=== PATIENT | male | born 1945 | race Caucasian/White ===

== ENCOUNTER → 2018-07-19 12:30 | Outpatient (CLI) | payer SELFPAY ==
--- NOTE | 2018-07-19 12:34 | CT_ITS ---
STUDY: CARDIAC CALCIUM SCORING - CT CHEST REASON FOR EXAM: Male, 72 years old. Coronary calcium screening, over read. RADIATION DOSAGE (If Supplied By Facility): DLP = ( 170.66 ) mGycm TECHNIQUE: Axial non-enhanced images were acquired through the heart for the sole purpose of measuring coronary artery calcium. Individualized dose optimization techniques were used for this CT. COMPARISON: None. FINDINGS: Upper abdomen: Unremarkable. Body wall soft tissues: Unremarkable. Osseous structures: Multilevel mild thoracic spondylosis. Mild osteopenia. Mediastinum: A few lymph nodes are present containing calcification consistent with old granulomatous disease. No acute lymphadenopathy. Esophagus is mildly patulous suggesting presbyesophagus. Lungs: The lungs exhibit generalized hyperlucency without anthony features of centrilobular or paraseptal emphysema. No suspicious focal lesions. Unremarkable airways. Heart: No cardiomegaly or pericardial effusion. There are calcifications of the distal left main, bifurcation of left main into proximal LAD and circumflex, tiny calcification of the LAD just after the takeoff of the 1st diagonal. A few small foci of calcification in the proximal to mid RCA. Aorta: Mild nonaneurysmal ectasia ascending aorta and proximal port 3.5 cm. Pulmonary arteries: Nondilated. CT/Limited Chest CT w/CCTA IMPRESSION: The coronary calcium score is reported under separate cover with cardiology. Please see that report. Multivessel coronary calcification. Evidence of COPD. No acute thoracic process is otherwise evident. Electronically Signed: Hal Coats MD at 13:54 EDT Tel , Service support ,
[2018-07-19 12:45] VITALS: BP 110/65; PULSE 64; RESP 16; O2SAT 93; BMI 32.5
--- NOTE | 2018-07-19 19:30 | CA.SCORE ---
Calcium Scoring Date of Study:: 07/19/18 Coronary Calcium Scoring: High-resolution Computed Tomographic imaging of the chest was performed on 07-19-2018 with particular attention paid to the coronary arteries. Images from the examination were analyzed for the presence and extent of coronary artery calcification , using coronary calcium quantification software. The patient tolerated the procedure well and there were no complications. The results of the coronary calcification analysis are provided below. - Findings Left Main (LM): 180 Left Anterior Descending (LAD): 3.91 Left Circumflex (LCX): 0 Right Coronary Artery (RCA): 75.5 Total Agatston Score: 259.41 - Conclusion Calcium Scoring Interpretation: Calcium Score Interpretation 0 No identifiable atherosclerotic plaque. Very low cardiovascular disease risk. <5% chance of presence coronary artery disease A Negative Examination 1-10 Minimal Plaque burden. Significant coronary artery disease very unlikely. 11-100 Mild plaque burden. Likely mild or minimal coronary atherosclerosis. 101-400 Moderate plaque burden Moderate non-obstructive coronary artery disease highly likely. Over 400 Extensive plaque burden. High likelihood of at least one significant coronary stenosis (>50% diameter) Calcium Score: 101 - 400 Moderate non-obstructive coronary artery disease highly like - 1. Percentile ranking: Between 25 and 50%: Indicative of twin 25 and 50% of people with the same gender/similar age had the same or lower scores.2. Continue cardiovascular risk factor evaluation and care as deemed appropriate.
== END ==
PROVIDERS: Family Provider Internal Medicine; PCP Internal Medicine; Referring Provider Internal Medicine; Visit Provider Internal Medicine
DX: E78.5 Hyperlipidemia, unspecified (principal)
CPT/HCPCS: 75571; 76380

== ENCOUNTER → 2019-01-14 11:55 | Outpatient (CLI) | payer MEDICARE, SELFPAY ==
[2018-07-19 12:45] VITALS: BMI 32.5
--- NOTE | 2019-01-14 12:10 | RAD_ITS ---
STUDY: X-RAY - LEFT KNEE REASON FOR EXAM: Male, 73 years old. Pain. TECHNIQUE: 4 view(s) of the knee. COMPARISON: None. FINDINGS: Normal visualized distal femur. Normal visualized proximal tibia and fibula. There is arthrosis of the proximal tibiofibular articulation. There is no demonstrated fracture. There is mild degenerative arthrosis of the medial femorotibial compartment. There is minimal there is mild chondrocalcinosis, more significant at the lateral joint compartment. Degenerative arthrosis of the lateral femorotibial compartment. There is moderate degenerative arthrosis of the patellofemoral articulation. There is mild joint effusion. There are atherosclerotic calcifications. RAD/Knee 4 or More Views IMPRESSION: Degenerative disease as described above. Mild joint effusion. Electronically Signed: Ana Saenz MD at 1:30 EST , Service support ,
--- NOTE | 2019-01-14 12:10 | RAD_ITS ---
STUDY: X-RAY - PELVIS AND LEFT HIP REASON FOR EXAM: Male, 73 years old. Pain. TECHNIQUE: 3 views of the pelvis and hip. COMPARISON: None. FINDINGS: There is a non-specific bowel gas pattern. Normal visualized soft tissue structures. There are multiple calcified phleboliths. There is narrowing with cortical sclerosis and osteophyte formation of the sacroiliac joint consistent with degenerative osteoarthritic changes. Normal bilateral superior and inferior pubic rami. There are mild degenerative changes of the pubic symphysis with articular narrowing and sclerosis. Normal bilateral ischial tuberosities. There are minimal osteoarthritic changes of the femoral head with marginal osteophyte formation. There is mild osteoarthritic spur formation of the acetabular rim. There is mild articular joint space narrowing of the hip. RAD/Hip uni 4+ views with Pelvis IMPRESSION: Multilevel degenerative disease as described above, otherwise remarkable x-ray examination of the pelvis and hip. Electronically Signed: Ana Saenz MD at 2:53 EST , Service support ,
--- NOTE | 2019-01-14 12:10 | RAD_ITS ---
STUDY: X-RAY - LUMBAR SPINE REASON FOR EXAM: Male, 73 years old. Back pain. TECHNIQUE: 5 view(s) of the lumbar spine were obtained. COMPARISON: None FINDINGS: Normal lumbar lordosis. Mild scoliosis, convexity to the right. There is a normal alignment of the vertebrae. There is multilevel endplate spondylosis of the lumbar vertebrae. There is multi-level degenerative disc disease with multi-level disc space narrowing. There is no demonstrated fracture. Multilevel bilateral facet hypertrophy seen. There is atherosclerotic calcification of the abdominal aorta without a demonstrated aneurysm. RAD/L/S Spine Min 4 Views IMPRESSION: Multilevel spondylosis/degenerative disease with no acute fracture, spondylolisthesis or pars defect. Electronically Signed: Ana Saenz MD at 2:52 EST , Service support ,
== END ==
PROVIDERS: Family Provider Internal Medicine; PCP Internal Medicine; Referring Provider Internal Medicine; Visit Provider Internal Medicine
DX: M47.816 Spondylosis without myelopathy or radiculopathy, lumbar region (principal); M16.12 Unilateral primary osteoarthritis, left hip; M17.12 Unilateral primary osteoarthritis, left knee
CPT/HCPCS: 72110; 73503; 73564

== ENCOUNTER → 2019-12-27 | Outpatient (CLI) | payer MEDICARE, SELFPAY ==
[2018-07-19 12:45] VITALS: BMI 32.5
[2019-12-27 14:22] LABS: Absolute Lymphocyte Count 0.67 X10^3/uL (0.83-4.51); Absolute Neutrophil Count 3.5 X10^3/uL (2.0-7.7); Basophil# 0.01 X10^3/uL; Basophil% 0.2 % (0-1); Eosinophil# 0.01 X10^3/uL; Eosinophils% 0.2 % (0-5); Hematocrit 41.8 % (40-54); Hemoglobin 13.9 g/dL (13.0-16.5); Lymphocyte # 0.67 X10^3/ul (4.0); Lymphocyte % 14.6 % (19-41); Mean Corp Hgb Conc 33.3 g/dL (32-36); Mean Corpuscular Hgb 29.6 pg (27.0-32.0); Mean Corpuscular Volume 88.9 fL (80-94); Mean Platelet Vol. 9.9 fl (6.2-12.0); Monocyte% 8.7 % (0-10); NRBC Flagged by Analyzer 0 % (0-5); Neutrophil # 3.48 X10^3/uL (2.7-7.7); Neutrophil % 75.9 % (47-70); Platelet Count 160 K/mm3 (150-450); RBC Distribution Width CV 12.4 % (11.6-14.6); RBC Distribution Width SD 40.9 fl (35.1-43.9); White Blood Count 4.6 K/mm3 (4.4-11.0)
[2019-12-27 14:41] LABS: AST(SGOT) 63 U/L (15-37); Alanine Aminotransfer ALT/SGPT 55 U/L (16-61); Albumin, Serum 3.5 g/dL (3.2-5.0); Alkaline Phosphatase 48 U/L (45-117); Anion Gap 7 (5-15); BUN 16 mg/dL (7-18); BUN/Creat Ratio 18.5 RATIO (10-20); Calcium,Total 8.2 mg/dL (8.5-10.1); Chloride 98 mmol/L (98-107); Creatinine, Serum 0.87 mg/dL (0.70-1.30); EST Glomerular Filtration Rate 92 mL/min (>60); Est Glom Filt Rate - Afr Amer 111 mL/min (>60); Globulin 3.5 g/dL (2.2-4.2); Glucose 139 mg/dL (74-106); Potassium 4.3 mmol/L (3.5-5.1); Sodium Level 134 mmol/L (136-145)
== END | disposition home or self-care (01) ==
LOC: LABSPEC 14:16
PROVIDERS: PCP Internal Medicine; Referring Provider Internal Medicine; Visit Provider Internal Medicine
DX: R50.9 Fever, unspecified (principal)
CPT/HCPCS: 80053; 85025

== ENCOUNTER → 2019-12-28 11:07 | Outpatient (CLI) | payer MEDICARE, SELFPAY ==
[2018-07-19 12:45] VITALS: BMI 32.5
--- NOTE | 2019-12-28 11:25 | RAD_ITS ---
STUDY: X-RAY CHEST REASON FOR EXAM: Male, 74 years old. Cough with fever, weakness, and SOB x 5 days TECHNIQUE: PA and lateral views of the chest. COMPARISON: None. FINDINGS: Hyperinflation. Scattered calcified granulomas. There is no demonstrated pleural abnormality. Normal size heart. Normal mediastinum and abel. Normal visualized pulmonary arteries. There is atherosclerotic calcification of the aortic arch with tortuosity. There are diffuse degenerative changes of the visualized thoracic spine. Normal visualized ribs, clavicles, and shoulders. There is no demonstrated abnormality of the visualized soft tissue structures of the upper abdomen. RAD/Chest PA and Lateral IMPRESSION: Hyperinflation. No acute abnormality is seen. Electronically Signed: Jackson Solano, at 12:15 EDT , Service support ,
== END ==
PROVIDERS: PCP Internal Medicine; Referring Provider Internal Medicine; Visit Provider Internal Medicine
DX: R05 Cough (principal); R50.9 Fever, unspecified
CPT/HCPCS: 71046

== ENCOUNTER → 2020-01-25 08:48 | Outpatient (CLI) | payer MEDICARE, SELFPAY ==
[2018-07-19 12:45] VITALS: BMI 32.5
--- NOTE | 2020-01-25 08:52 | CDU_ITS ---
Reason For Study: ATHEROSCLEROSIS Rt. Velocities/BP Lt. Velocities/BP Prox CCA 58/17 cm/sec. Prox CCA 68/18 cm/sec. Mid CCA 84/23 cm/sec. Mid CCA 101/24 cm/sec. Dist CCA 58/19 cm/sec. Dist CCA 94/28 cm/sec. Prox ICA 42/15 cm/sec. Prox ICA 35/9 cm/sec. Mid ICA 61/25 cm/sec. Mid ICA 97/33 cm/sec. Dist ICA 70/31 cm/sec. Dist ICA 83/29 cm/sec. Rt. ICA/CCA = 1.2. Lt. ICA/CCA = 1.0. Prox ECA 76/10 cm/sec. Velocities may underestimate degree of Rt. Vert. 42/11 cm/sec. stenosis in mid ICA. Prox ECA 79/15 cm/sec. Lt. Vert. 58/17 cm/sec. Right Extracranial There is homogeneous, smooth atherosclerotic plaque noted in the right common carotid artery. There is heterogeneous, irregular atherosclerotic plaque noted in the right internal carotid artery. There is heterogeneous, irregular atherosclerotic plaque noted in the right external carotid artery. Antegrade flow is noted in the right vertebral artery. There is heterogeneous, irregular atherosclerotic plaque noted in the right bulb. Left Extracranial There is heterogeneous, smooth atherosclerotic plaque noted in the left common carotid artery. There is heterogeneous, irregular atherosclerotic plaque noted in the left internal carotid artery. There is heterogeneous, irregular atherosclerotic plaque noted in the left external carotid artery. Antegrade flow is noted in the left vertebral artery. There is heterogeneous, irregular atherosclerotic plaque noted in the left bulb. Procedure Carotid Duplex [id number]. Exam performed in department. Interpretation Summary Mild (<50%) stenosis right extracranial internal carotid. Mild (<50%) stenosis left extracranial internal carotid. Palomo-scale imaging reveals stenosis of approximately 50% in the left mid-internal carotid artery. Flow within the vertebral arteries is antegrade bilaterally. Heterogeneous, irregular atherosclerotic plaque is noted in the carotid bulbs bilaterally, which does not appear to be hemodynamically significant. Ordering Physician: Svetlana Oneill Referring Physician: Svetlana Oneill Performed By: Sandie Neri, JOHANNY, RVT
== END ==
PROVIDERS: PCP Internal Medicine; Referring Provider Internal Medicine; Visit Provider Internal Medicine
DX: I65.23 Occlusion and stenosis of bilateral carotid arteries (principal)
CPT/HCPCS: 93880

== ENCOUNTER 2020-07-01 20:07 | Inpatient (IN) | payer MEDICARE, SELFPAY ==
[2018-07-19 12:45] VITALS: BMI 32.5
[2020-07-01] VITALS (24 sets, daily range): BP systolic 112–153; BP diastolic 65–128; PULSE 56–72; RESP 13–19; TEMP 36.3–36.6; O2SAT 93–98; BMI 31.4; BMI 33.0
--- NOTE | 2020-07-01 20:16 | RAD_ITS ---
STUDY: X-RAY CHEST REASON FOR EXAM: Male, 74 years old. Neuro deficit, acute, stroke suspected TECHNIQUE: AP portable COMPARISON: 12/28/2019 FINDINGS: The lungs are clear and expanded. There is no demonstrated pleural abnormality. Normal size heart. Normal mediastinum and abel. Normal visualized pulmonary arteries. Mildly calcified aortic arch and descending thoracic aorta. Dorsal spine and shoulders demonstrate change. Normal visualized ribs, and clavicles. There is no demonstrated abnormality of the visualized soft tissue structures of the upper abdomen. No significant change since prior study RAD/Chest 1 View IMPRESSION: No acute cardiopulmonary pathology Electronically Signed: Wali Real MD at 21:08 EDT , Service support ,
--- NOTE | 2020-07-01 20:16 | CT_ITS ---
We are attempting to reach an attending provider to discuss findings. An addendum with communication details will be sent when the communication is complete. STUDY: CT HEAD STROKE PROTOCOL W/O CONTRAST INJECTION REASON FOR EXAM: Male, 74 years old. Neuro deficit, acute, stroke suspected RADIATION DOSAGE (If Supplied By Facility): CTDIvol = ( ) mGy, DLP = ( 812.98 ) mGycm TECHNIQUE: Transaxial CT imaging of the brain was performed without administration of intravenous contrast material. Individualized dose optimization techniques were used for this CT. COMPARISON: No relevant priors. FINDINGS: Normal soft tissue structures. Normal calvarium. Calcification of cavernous carotids Mild atrophy and periventricular white matter ischemic change.. Tiny hypoattenuated density in the medial left temporal lobe most likely perivascular space. Normal basal ganglia and thalami. Normal brainstem. Normal cerebellum. Empty sella deformity likely of no significance There is no intracranial hemorrhage. There are no findings of an acute ischemic infarction. There is minor mucosal thickening in the maxillary and mild mucosal thickening of the ethmoid sinuses. ASPECT score: 10 CT/STROKE Brain/Head without Cont IMPRESSION: Mild atrophy and periventricular white matter ischemic change. No evidence for acute bleed. If concern for acute infarct MRI recommended.. Electronically Signed: Wali Real MD at 20:33 EDT , Service support ,
--- NOTE | 2020-07-01 20:16 | EKG12_ITS ---
Test Reason : STROKE Blood Pressure : / mmHG Vent. Rate : 063 BPM Atrial Rate : 063 BPM P-R Int : 216 ms QRS Dur : 104 ms QT Int : 412 ms P-R-T Axes : 069 072 052 degrees QTc Int : 421 ms Sinus rhythm with 1st degree A-V block Nonspecific ST abnormality Abnormal ECG Confirmed by JENNIFER CAMACHO, JOSE ([id number]), editorial manager DORINA RODRIGUEZ ([id number]) on 07/04/2020 8:50:44 AM Referred By: OLIVER Confirmed By:JOSE RODRIGUEZ MD
--- NOTE | 2020-07-01 20:17 | CT_ITS ---
We are attempting to reach an attending provider to discuss findings. An addendum with communication details will be sent when the communication is complete. STUDY: CTA HEAD AND NECK WITH CONTRAST REASON FOR EXAM: Male, 74 years old. Neuro deficit, acute, stroke suspected RADIATION DOSAGE (If Supplied By Facility): CTDIvol = ( 22.25 ) mGy, DLP = ( 739.76 ) mGycm TECHNIQUE: CT angiography was performed with a multi-detector CT scanner. Data acquisition was obtained from the skull base through the vertex following intravenous administration of IV 100mL [id number]-[id number]. MIP images were reconstructed from the axial data set. Post-processing of the angiographic images was performed, with multiplanar reformation and 3D reconstruction. Individualized dose optimization techniques were used for this CT. COMPARISON: No relevant priors. FINDINGS: Normal bilateral petrous carotid arteries. Moderate calcific plaquing of the right cavernous carotid artery with a normal supraclinoid bifurcation. Moderate calcific plaquing of the left cavernous carotid artery with a normal supraclinoid bifurcation. Normal right A1 segments of the anterior cerebral artery. Nonvisualized left A1 segments of the anterior cerebral artery which may be normal developmental variant. Normal intact anterior communicating artery (ACOM). Normal bilateral A2 segments of the anterior cerebral arteries. Normal right M1 and M2 segments of the middle cerebral arteries, with a normal M1 bifurcation. Normal left M1 and M2 segments of the middle cerebral arteries, with a normal M1 bifurcation. Normal right posterior communicating artery (PCOM). Normal left posterior communicating artery (PCOM). Normal bilateral vertebral arteries. Normal basilar artery with a normal basilar bifurcation. The visualized bilateral superior cerebellar (SCA) arteries are normal. Normal bilateral P1, P2 and visualized P3 segments of the posterior cerebral arteries. There is no demonstrated aneurysm of the [place] of [place]. AORTIC ARCH: Normal visualized aortic arch. Normal origins of the brachiocephalic, left common carotid, and left subclavian arteries. RIGHT CAROTID ARTERIES: Normal right common carotid artery (CCA). Moderate calcific plaquing of the right common carotid bulb. Moderate soft and calcific plaquing of the origin of the right internal carotid (ICA) artery without a hemodynamically significant stenosis. Normal visualized cervical portion of the right internal carotid artery. Normal origin of the right external carotid artery (ECA). LEFT CAROTID ARTERIES: Mild calcific plaquing of the left common carotid artery (CCA). Moderate calcific plaquing of the left common carotid bulb. Normal origin of the left internal carotid (ICA) artery without a hemodynamically significant stenosis. Moderate soft and calcific plaquing of the visualized cervical portion of the left internal carotid artery. Normal origin of the left external carotid artery (ECA). VERTEBRAL ARTERIES: Dominant left vertebral artery which is normal caliber.. Small right vertebral which is normal developmental variant CT/STROKE CTA Head AND Neck W/Con IMPRESSION: Moderate atherosclerotic disease of the carotids more severe on the left without evidence for hemodynamically significant stenosis Mild atherosclerotic disease of the brain Electronically Signed: Wali Real MD at 20:49 EDT , Service support ,
[2020-07-01 20:26] LABS: Absolute Lymphocyte Count 1.39 X10^3/uL (0.83-4.51); Absolute Neutrophil Count 4.3 X10^3/uL (2.0-7.7); Basophil# 0.04 X10^3/uL; Basophil% 0.6 % (0-1); Eosinophil# 0.11 X10^3/uL; Eosinophils% 1.7 % (0-5); Hematocrit 41.6 % (40-54); Hemoglobin 13.4 g/dL (13.0-16.5); Lymphocyte # 1.39 X10^3/ul (0.83-4.51); Lymphocyte % 22.1 % (19-41); Mean Corp Hgb Conc 32.2 g/dL (32-36); Mean Corpuscular Hgb 28.9 pg (27.0-32.0); Mean Corpuscular Volume 89.8 fL (80-94); Mean Platelet Vol. 9.6 fl (6.2-12.0); Monocyte# 0.45 X10^3/uL; Monocyte% 7.1 % (0-10); NRBC Flagged by Analyzer 0 % (0-5); Neutrophil # 4.26 X10^3/uL (2.7-7.7); Neutrophil % 67.7 % (47-70); Platelet Count 221 K/mm3 (150-450); RBC Distribution Width SD 42.7 fl (35.1-43.9); Red Blood Count 4.63 M/mm3 (4.6-6.2); White Blood Count 6.3 K/mm3 (4.4-11.0)
[2020-07-01 20:36] LABS: International Normalized Ratio 1.1; Partial Thromboplast Time 27.3 Seconds (24.1-36.2); Prothrombin Time (Protime)PT. 13.2 SECONDS (11.7-14.9)
[2020-07-01 20:45] LABS: Anion Gap 5 (5-15); BUN 21 mg/dL (7-18); BUN/Creat Ratio 18.8 RATIO (10-20); Calcium,Total 9.2 mg/dL (8.5-10.1); Chloride 102 mmol/L (98-107); Creatinine, Serum 1.12 mg/dL (0.70-1.30); EST Glomerular Filtration Rate 68 mL/min (>60); Est Glom Filt Rate - Afr Amer 82 mL/min (>60); Estimated Creatinine Clearance 61.63 ml/min; Glucose 263 mg/dL (74-106); Potassium 3.8 mmol/L (3.5-5.1); Sodium Level 138 mmol/L (136-145)
[2020-07-01] MEDS: 0.9% Normal Saline 1,000 ML 100 ML IV (21:23)
--- NOTE | 2020-07-01 21:26 | EDS_ITS ---
HPI History of Present Illness Chief Complaint: Neuro S/Sx Informant: patient Onset/Context/Timing Onset: Today Context: Sudden Onset Timing: Continuous Quality and Location: Positive for Right Arm Weakness (Right hand weakness) Associated Symptoms Associated Symptoms: Negative for Headache, Nausea, Vomiting and Chest Pain Narrative Narrative: Patient presents with right hand weakness that began suddenly tonight. Patient was eating popcorn at approximately 1930 hrs. tonight. Patient states that he had difficulty grabbing the popcorn and putting it into his mouth. Patient states he then tried to take a drink of water but was unable to hold a glass of water. Patient denies any difficulty swallowing or talking. Patient denies any headaches. Patient denies any other symptoms. Prior similar symptoms: No PFSH PFSH Medical History Diabetes Home Medications aspirin 325 mg PO DAILY 07/01/20 [History Last Taken Unknown] empagliflozin [Jardiance] 25 mg PO DAILY 07/01/20 [History Last Taken Unknown] finasteride 5 mg PO DINNER 07/01/20 [History Last Taken Unknown] insulin glargine [Lantus Solostar U-100 Insulin] 10 unit SUBCUT BREAKFAST 07/01/20 [History Last Taken Unknown] sitagliptin-metformin [Janumet] 50 - 1,000 tab PO DAILY 07/01/20 [History Last Taken Unknown] tamsulosin 0.4 mg PO DINNER 07/01/20 [History Last Taken Unknown] Allergy/AdvReac Type Severity Reaction Status Date / Time No Known Allergies Allergy Verified 07/01/20 20:08 Surgical History History of appendectomy Social History Smoking Status: Never smoker ROS ROS ED Constitutional Constitutional ED: Denies chills or fever(s) Eyes Eyes: Denies blurry vision or change in vision ENT ENT ED: Denies rhinorrhea or sore throat Cardiovascular Cardiovascular: Denies chest pain or palpitations Respiratory/Chest Respiratory/Chest: Denies cough or dyspnea Gastrointestinal Gastrointestinal: Denies nausea or vomiting Genitourinary Genitourinary ED: Denies dysuria or hematuria Musculoskeletal Musculoskeletal: Denies back pain or neck pain Integumentary Denies abscess or rash Neurologic Neurologic: Reports paresthesias and weakness; Denies headache(s) Allergic/Immunologic Allergic/Immunologic ED: Denies mouth swelling or urticaria EXAM Physical Exam Const Vital Signs: 07/01/20 20:08 07/01/20 20:16 07/01/20 20:23 Temperature 97.7 F L Temperature Source Temporal Pulse Rate 67 69 Respiratory Rate 19 H 18 Blood Pressure 148/128 H 137/75 H Blood Pressure Mean 134 95 Blood Pressure Source Blood Pressure Position Blood Pressure Location Pulse Ox 95 95 Oxygen Delivery Method Room Air Room Air Room Air 07/01/20 20:46 07/01/20 21:06 07/01/20 21:13 Temperature 97.6 F L Temperature Source Core Pulse Rate 64 68 Respiratory Rate 16 16 Blood Pressure 125/73 H 125/73 H 126/70 H Blood Pressure Mean 90 88 Blood Pressure Source Monitor Blood Pressure Position Sitting Blood Pressure Location Right Arm Pulse Ox 94 95 Oxygen Delivery Method Room Air Room Air 07/01/20 21:18 Temperature 97.7 F L Temperature Source Core Pulse Rate 67 Respiratory Rate 16 Blood Pressure 126/70 H Blood Pressure Mean 88 Blood Pressure Source Blood Pressure Position Blood Pressure Location Pulse Ox 95 Oxygen Delivery Method Room Air Positive well nourished and well developed General Appearance ED: well developed HEENT Reports moist mucous membranes atraumatic Eyes PERRL and EOMs intact bilaterally Neck supple and no JVD Resp normal respiratory effort and clear to auscultation bilaterally Cardio Rate: regular rate Rhythm: regular rhythm GI normal to inspection, nondistended, normoactive bowel sounds, soft to palpation and non-tender Extremity normal to inspection General Extremety ED: Yes tenderness Neuro oriented x3 and CN's II-XII intact bilaterally Neuro Narrative: There is weakness of the package sorter on the right. There is some mild weakness of wrist flexion and extension. There is good strength of the right bicep and tricep. There is good strength of the right shoulder. There is good strength in the left upper extremity. There is good strength in the lower extremities bilaterally. Sensation was slightly diminished to light touch in the right hand. There are no other sensory deficits noted. Czlnlh-ps-vnap was grossly intact. Patient had difficulty pointing his right index finger but was otherwise able to move it to his nose and my finger. Lwwt-lp-exug was intact. Sensorium / Orientation: alert Speech: speech normal Psych mental status grossly normal STROKE Vital Signs/Narrative: Vital Signs Temp Pulse Resp BP Pulse Ox 07/01/20 21:18 97.7 F L 67 16 126/70 H 95 07/01/20 21:13 97.6 F L 68 16 126/70 H 95 07/01/20 21:06 125/73 H 07/01/20 20:46 64 16 125/73 H 94 07/01/20 20:16 69 18 137/75 H 95 07/01/20 20:08 97.7 F L 67 19 H 148/128 H 95 NIHSS Initial: 1a Level of Consciousness: 0 1b LOC Questions (Score 2 if aphasic/stupor): 0 1c LOC Commands (Only score 1st attempt): 0 2 Best Gaze (If aphasic, use reflexive mvmts.): 0 3 Visual: 0 4 Facial Palsy: 0 5 Motor Arm Right (UN = amputation/fusion): 1 5 Motor Arm Left: 0 6 Motor Leg Right: 0 6 Motor Leg Left: 0 7 Limb ataxia (Only + if out of proportion): 0 8 Sensory (Aphasia/stupor=0 or 1, coma=2): 0 9 Best Language: 0 10 Dysarthria (mute, coma=2, intubated=UN): 0 11 Extinction and Inattention (only scored if +): 0 Total Score: 1 MDM MDM MDM Narrative Medical decision making narrative: CT scan of the brain was obtained. There is no acute intracranial abnormality. CTA of the brain was obtained. There is atherosclerotic disease but there is no large vessel occlusion. There is no dissection. CBC and basic metabolic profile were within normal limits. Troponin was normal. PT with INR and PTT were normal. EKG was obtained. On my interpretation, showed normal sinus rhythm with a first-degree AV block with a rate of 63. LA interval was 216. QRS, and QTc intervals were within normal limits. Odonnell was normal. Portable 1 view chest x-ray was obtained. On my interpretation, lung horner are clear. There is normal cardiac silhouette. Bony thorax is normal. There is no acute process noted. Radiologist also interpreted the x-ray and agrees. Stroke neurologist evaluated the patient. He recommended giving the patient TPA since his right hand is affected and he is right-hand dominant. Patient is agreeable with this. I discussed the risks and benefits of TPA with the patient. He is agreeable to receive the TPA. This was ordered. Case was discussed with the hospitalist. He will admit the patient to ICU. Patient and family understood and were agreeable with the plan. All questions were answered. Lab Data Labs: Laboratory Results - last 24 hr 07/01/20 07/01/20 07/01/20 20:17 20:17 20:17 WBC 6.3 RBC 4.63 Hgb 13.4 Hct 41.6 MCV 89.8 MCH 28.9 MCHC 32.2 RDW Std Deviation 42.7 RDW Coeff of Rosa [place] 13.0 Plt Count 221 MPV 9.6 Immature Gran % (Auto) 0.800 Neut % (Auto) 67.7 Lymph % (Auto) 22.1 [place] % (Auto) 7.1 Eos % (Auto) 1.7 Baso % (Auto) 0.6 Absolute Neuts (auto) 4.3 Absolute Lymphs (auto) 1.39 Nucleated RBC % 0 PT 13.2 INR 1.1 APTT 27.3 Sodium 138 Potassium 3.8 Chloride 102 Carbon Dioxide 31.0 Anion Gap 5 BUN 21 H Creatinine 1.12 Estim Creat Clear Calc 61.63 Est GFR (MDRD) Af Amer 82 Est GFR (MDRD) Non-Af 68 BUN/Creatinine Ratio 18.8 Glucose 263 H Calcium 9.2 Troponin I < 0.015 Radiography Diagnostic Testing: Radiology Impression Brain CT 07/01/20 20:16 IMPRESSION: Mild atrophy and periventricular white matter ischemic change. No evidence for acute bleed. If concern for acute infarct MRI recommended.. Electronically Signed: Wali Real MD at 20:33 EDT , Service support , ADDENDUM: 07/01/202040 IMPRESSION: Mild atrophy and periventricular white matter ischemic change. No evidence for acute bleed. If concern for acute infarct MRI recommended.. N.B. : The above information has been verbally conveyed by Wali Real MD to Dr. Cooper Valverde DO, on 07/01/2020 20:34:07 (ET). Electronically Signed: Wali Real MD at 20:33 EDT , Service support , Chest X-Ray 07/01/20 20:16 IMPRESSION: No acute cardiopulmonary pathology Electronically Signed: Wali Real MD at 21:08 EDT , Service support , Head/Neck CTA 07/01/20 20:17 IMPRESSION: Moderate atherosclerotic disease of the carotids more severe on the left without evidence for hemodynamically significant stenosis Mild atherosclerotic disease of the brain Electronically Signed: Wali Real MD at 20:49 EDT , Service support , ADDENDUM: 07/01/202056 IMPRESSION: Moderate atherosclerotic disease of the carotids more severe on the left without evidence for hemodynamically significant stenosis Mild atherosclerotic disease of the brain N.B. : The above information has been verbally conveyed by Wali Real MD to Dr. Cooper Valverde DO, on 07/01/2020 20:50:47 (ET). Electronically Signed: Wali Real MD at 20:49 EDT , Service support , EKG Initial EKG: Attestation: I personally reviewed and interpreted this EKG as follows: Interpretation: Sinus Rhythm (63 with first-degree AV block) and Non- Specific ST Changes Treatment and Re-Evaluation Vital Sign Attestation:: Vital signs were stable prior to the patient being admitted Stroke Documentation Questions Stroke Team Activated: Yes Reviewed Inclusion/Exclusion criteria: Yes Was Patient considered for Endovascular Intervention?: No IV Alteplase (t-PA) Administered: Yes No contraindications for IV Alteplase (t-PA) administration.: Yes Alteplase (t-PA) risks, benefits, alternative discussed: Yes Critical Care Time Critical Care Time: Yes Critical care time (excluding procedures): 30-74 minutes, Discussing w/Patient &/or Family/Personnel Placement Specialist, Discussing w/Consultants, Arranging Admission or Transfer and Performing Direct Patient Care at Bedside Discharge Plan Dx/Rx/DC Orders Clinical Impression: Stroke Disposition Disposition: Acute Care Hospital [facility]
--- NOTE | 2020-07-01 22:18 | ED.RN ---
see TPA vital signs and NIH
--- NOTE | 2020-07-01 22:38 | HP.PCM.HOS_ITS ---
HPI - General General Date of Admission: 07/01/20 Chief Complaint: Weakness of right hand HPI Narrative CHASITY MCKEON, is a 74 M with a significant history of diabetes mellitus who presents with a weakness of her right hand. Patient is right-hand dominant. He was eating popcorn with her right hand when he realized that he could not use his right hand to eat again. He tried using a cup and he dropped the cup. Initially at the emergency department he had some sensation changes at the right hand. He has some chronic bilateral feet numbness that has not changed. At the emergency department he had a clawed right hand. Stroke telemetry neurologist saw patient and patient was given TPA. [facility] Home Medications aspirin 325 mg PO DAILY 07/01/20 [History Last Taken Unknown] empagliflozin [Jardiance] 25 mg PO DAILY 07/01/20 [History Last Taken Unknown] finasteride 5 mg PO DINNER 07/01/20 [History Last Taken Unknown] insulin glargine [Lantus Solostar U-100 Insulin] 10 unit SUBCUT BREAKFAST 07/01/20 [History Last Taken Unknown] sitagliptin-metformin [Janumet] 50 - 1,000 tab PO DAILY 07/01/20 [History Last Taken Unknown] tamsulosin 0.4 mg PO DINNER 07/01/20 [History Last Taken Unknown] Allergy/AdvReac Type Severity Reaction Status Date / Time No Known Allergies Allergy Verified 07/01/20 20:08 Family History (Updated 07/01/20 @ 23:[address] Layo Rosas MD) Other CVA (cerebral vascular accident) Surgical History H/O: knee surgery History of appendectomy Social History Smoking Status: Never smoker ROS ROS Narrative 12 point review of system is negative except as stated in HPI. Vital Signs Vital Signs Vital Signs: 07/01/20 20:08 07/01/20 20:16 07/01/20 20:23 Temperature 97.7 F L Temperature Source Temporal Pulse Rate 67 69 Respiratory Rate 19 H 18 Blood Pressure 148/128 H 137/75 H Blood Pressure Mean 134 95 Blood Pressure Source Blood Pressure Position Blood Pressure Location Pulse Ox 95 95 Oxygen Delivery Method Room Air Room Air Room Air 07/01/20 20:46 07/01/20 21:06 07/01/20 21:13 Temperature 97.6 F L Temperature Source Core Pulse Rate 64 68 Respiratory Rate 16 16 Blood Pressure 125/73 H 125/73 H 126/70 H Blood Pressure Mean 90 88 Blood Pressure Source Monitor Blood Pressure Position Sitting Blood Pressure Location Right Arm Pulse Ox 94 95 Oxygen Delivery Method Room Air Room Air 07/01/20 21:18 07/01/20 21:25 07/01/20 21:32 Temperature 97.7 F L 97.8 F 97.9 F Temperature Source Core Core Core Pulse Rate 67 65 66 Respiratory Rate 16 16 16 Blood Pressure 126/70 H 126/70 H 114/65 Blood Pressure Mean 88 88 81 Blood Pressure Source Monitor Blood Pressure Position Sitting Blood Pressure Location Right Arm Pulse Ox 95 96 95 Oxygen Delivery Method Room Air Room Air Room Air 07/01/20 21:36 07/01/20 21:51 07/01/20 22:00 Temperature 97.9 F 97.8 F 97.8 F Temperature Source Core Core Core Pulse Rate 65 65 65 Respiratory Rate 16 16 16 Blood Pressure 114/65 153/85 H 122/89 H Blood Pressure Mean 81 107 100 Blood Pressure Source Monitor Monitor Monitor Blood Pressure Position Sitting Sitting Sitting Blood Pressure Location Right Arm Right Arm Right Arm Pulse Ox 95 95 95 Oxygen Delivery Method Room Air Room Air Room Air 07/01/20 22:06 07/01/20 22:21 07/01/20 22:29 Temperature 97.8 F 97.8 F 97.7 F L Temperature Source Core Core Core Pulse Rate 64 69 72 Respiratory Rate 16 16 18 Blood Pressure 122/89 H 112/84 H 132/82 H Blood Pressure Mean 100 93 98 Blood Pressure Source Monitor Monitor Blood Pressure Position Sitting Sitting Blood Pressure Location Right Arm Right Arm Pulse Ox 95 95 93 Oxygen Delivery Method Room Air Room Air Room Air Physical Exam Narrative Alert and oriented x3 Nontraumatic; normocephalic Lung clear to auscultate Heart sounds S1-S2. No murmur, gallop or rubs. Abdomen bowel sounds present soft, nontender nondistended Extremity: No edema; clubbing or cyanosis. Neuro: Unable to fully stretch fingers of right hand. Unable to use right hand to do lukxgh-sc-vqhb test secondary to weakness. Can do tvhqpd-of-usor test with left hand. Unable to do ibdy-lp-ohqq test with right leg secondary to indwelling Keith catheter placed at the emergency department. Cannot do fgan-mt-gqhq tests with his left leg. Deep tendon reflex not hyperactive throughout. Lab / Micro Data Result Diagrams: 07/01/20 20:17 07/01/20 20:17 Labs: Laboratory Results - last 24 hr 07/01/20 07/01/20 07/01/20 20:17 20:17 20:17 WBC 6.3 RBC 4.63 Hgb 13.4 Hct 41.6 MCV 89.8 MCH 28.9 MCHC 32.2 RDW Std Deviation 42.7 RDW Coeff of [place] 13.0 Plt Count 221 MPV 9.6 Immature Gran % (Auto) 0.800 Neut % (Auto) 67.7 Lymph % (Auto) 22.1 [place] % (Auto) 7.1 Eos % (Auto) 1.7 Baso % (Auto) 0.6 Absolute Neuts (auto) 4.3 Absolute Lymphs (auto) 1.39 Nucleated RBC % 0 PT 13.2 INR 1.1 APTT 27.3 Sodium 138 Potassium 3.8 Chloride 102 Carbon Dioxide 31.0 Anion Gap 5 BUN 21 H Creatinine 1.12 Estim Creat Clear Calc 61.63 Est GFR (MDRD) Af Amer 82 Est GFR (MDRD) Non-Af 68 BUN/Creatinine Ratio 18.8 Glucose 263 H Calcium 9.2 Troponin I < 0.[address] 07/01/20 20:16 IMPRESSION: Mild atrophy and periventricular white matter ischemic change. No evidence for acute bleed. If concern for acute infarct MRI recommended.. Electronically Signed: Wali Real MD at 20:33 EDT , Service support , ADDENDUM: 07/01/202040 IMPRESSION: Mild atrophy and periventricular white matter ischemic change. No evidence for acute bleed. If concern for acute infarct MRI recommended.. N.B. : The above information has been verbally conveyed by Wali Real MD to Dr. Cooper Valverde DO, on 07/01/2020 20:34:07 (ET). Electronically Signed: Wali Real MD at 20:33 EDT , Service support , Chest X-Ray 07/01/20 20:16 IMPRESSION: No acute cardiopulmonary pathology Electronically Signed: Wali Real MD at 21:08 EDT , Service support , Head/Neck CTA 07/01/20 20:17 IMPRESSION: Moderate atherosclerotic disease of the carotids more severe on the left without evidence for hemodynamically significant stenosis Mild atherosclerotic disease of the brain Electronically Signed: Wali Real MD at 20:49 EDT , Service support , ADDENDUM: 07/01/202056 IMPRESSION: Moderate atherosclerotic disease of the carotids more severe on the left without evidence for hemodynamically significant stenosis Mild atherosclerotic disease of the brain N.B. : The above information has been verbally conveyed by Wali Real MD to Dr. Cooper Valverde DO, on 07/01/2020 20:50:47 (ET). Electronically Signed: Wali Real MD at 20:49 EDT , Service support , Assessment & Plan Assessment/Plan (1) Stroke: Status: Acute Code(s): I63.9 - Cerebral infarction, unspecified Qualifiers: CVA mechanism: unspecified Qualified Code(s): I63.9 - Cerebral infarction, unspecified Plan: CT of the head was with no evidence of acute bleed. CT of the head was independently reviewed. Head and neck CTA with moderate atherosclerotic disease of the carotids some severe on the left without evidence for hemodynamically significant stenosis. Mild atherosclerotic disease of the brain. -Check Hba1c, check CMP. Of note CMP in 2019 showed AST mildly elevated at 63. High intensity statin ordered. Physical therapy and Occupational Therapy ordered. Passed swallow eval at emergency department. Okay to start diet. Diabetic diet ordered. Received TPA at emergency department. No antiplatelets for the next 24 hours. Nicardipine drip and labetalol as needed per protocol/blood pressure parameters after TPA administration. MRI of brain 24 hours after TPA administration ordered. Echocardiogram ordered. 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 Complain of chronic numbness of bilateral feet. Home long-acting insulin continued. On home [place]. Hold. Linagliptin ordered. Accu-Chek with correction scale insulin ordered. Visit Charges Inpatient E&M: 29767 Init Hosp L3
--- NOTE | 2020-07-01 23:37 | ECHOD_ITS ---
Reason For Study: CVA Procedure This was a 2D Doppler, Color Flow transthoracic echocardiogram. Exam performed portable in ICU/CCU. Left Ventricle Normal LV size. Left ventricular systolic function is normal. The estimated ejection fraction is 65 %. Normal diastology for age. No regional wall motion abnormalities noted. Right Ventricle Normal RV size. Normal systolic function. Atria Normal left atrium. Normal right atrium. Bubble contrast study negative for right to left interatrial shunt. Mitral Valve Normal mitral valve. Tricuspid Valve Normal tricuspid valve. Mild tricuspid valve insufficiency. Pulmonary artery systolic pressure is 29 mmHg. Aortic Valve Trisinus/trileaflet aortic valve. Normal aortic valve. Mild (1+) aortic valve insufficiency. Pulmonic Valve Normal pulmonic valve. Great Vessels Normal aortic root. The pulmonary artery is normal size. Normal inferior vena cava. Pericardium/Pleural No pericardial effusion. Medication Performed a rapid injection of agitated mix of 9 cc saline and 1cc air to assess for atrial septal defect. MMode/2D Measurements & Calculations LVIDd: 4.8 cm IVSd: 0.78 cm Ao root diam: 3.7 cm LVIDs: 3.1 cm LVPWd: 0.79 cm RVDd: 3.4 cm FS: 35.4 % LAV(MOD-bp): 27.5 ml LVAd ap4: 36.2 cm2 LVAd ap2: 27.9 cm2 LAV(MOD-bp) Indexed: 12.5 ml/m2 LVLd ap4: 8.7 cm LVLd ap2: 9.0 cm LAV(MOD-sp2): 30.2 ml EDV(MOD-sp4): 122.8 ml EDV(MOD-sp2): 72.1 ml LAV(MOD-sp4): 25.5 ml EDV(sp4-el): 128.2 ml EDV(sp2-el): 73.3 ml LVAs ap4: 19.6 cm2 LVAs ap2: 15.2 cm2 LVLs ap4: 6.8 cm LVLs ap2: 7.3 cm ESV(MOD-sp4): 48.6 ml ESV(MOD-sp2): 26.4 ml ESV(sp4-el): 48.0 ml ESV(sp2-el): 27.0 ml EF(MOD-sp4): 60.4 % EF(MOD-sp2): 63.4 % EF(sp4-el): 62.5 % SV(MOD-sp4): 74.2 ml SV(MOD-sp2): 45.7 ml SV(sp4-el): 80.2 ml LA A4 area: 12.4 cm2 LA dimension(2D): 3.7 cm RA A4 area: 7.8 cm2 Time Measurements MV dec time: 0.20 sec Doppler Measurements & Calculations MV E max gurwinder: 75.5 cm/sec Lat Peak E' Gurwinder: 11.4 cm/sec Med Peak E' Gurwinder: 6.5 cm/sec MV A max gurwinder: 71.2 cm/sec E/E' lat: 6.7 E/E' med: 11.6 MV E/A: 1.1 Ao V2 max: 142.1 cm/sec AI max gurwinder: 425.1 cm/sec LV V1 max: 97.4 cm/sec Ao max P.1 mmHg AI max P.3 mmHg LV V1 max P.8 mmHg AI dec slope: 194.7 cm/sec2 AI P1/2t: 639.4 msec PA V2 max: 79.7 cm/sec TR max gurwinder: 246.4 cm/sec TR max P.6 mmHg ECHO/Echo Complete Interpretation Summary Normal LV size. Left ventricular systolic function is normal. The estimated ejection fraction is 65 %. Normal diastology for age. Mild (1+) aortic valve insufficiency. Bubble contrast study negative for right to left interatrial shunt. Ordering Physician: Layo Rosas Referring Physician: JOSE SIDDIQUI Performed By: Sandie Neri, RDCS, RVT
[2020-07-02] VITALS (35 sets, daily range): BP systolic 93–141; BP diastolic 67–92; PULSE 53–77; RESP 8–22; TEMP 36–36.9; O2SAT 91–97; BMI 33.0
[2020-07-02 00:22] LABS: Hemoglobin A1c 8.3 % (3.8-5.6)
[2020-07-02 01:51] LABS: Bedside Glucose 269 mg/dL (70-110)
[2020-07-02] MEDS: 0.9% Normal Saline 1,000 ML 100 ML IV (04:30)
[2020-07-02 04:40] LABS: Absolute Lymphocyte Count 1.36 X10^3/uL (0.83-4.51); Basophil# 0.05 X10^3/uL; Basophil% 0.8 % (0-1); Eosinophil# 0.13 X10^3/uL; Eosinophils% 2.2 % (0-5); Hematocrit 40.7 % (40-54); Hemoglobin 13.3 g/dL (13.0-16.5); Lymphocyte # 1.36 X10^3/ul (0.83-4.51); Lymphocyte % 22.5 % (19-41); Mean Corp Hgb Conc 32.7 g/dL (32-36); Mean Corpuscular Hgb 29.4 pg (27.0-32.0); Mean Platelet Vol. 9.2 fl (6.2-12.0); Monocyte# 0.46 X10^3/uL; Monocyte% 7.6 % (0-10); NRBC Flagged by Analyzer 0 % (0-5); Neutrophil % 66.2 % (47-70); Platelet Count 188 K/mm3 (150-450); RBC Distribution Width CV 12.9 % (11.6-14.6); RBC Distribution Width SD 42.4 fl (35.1-43.9); Red Blood Count 4.52 M/mm3 (4.6-6.2)
[2020-07-02 05:05] LABS: ALB/GLOB Ratio 1.1 RATIO (0.9-2.4); AST(SGOT) 27 U/L (15-37); Alanine Aminotransfer ALT/SGPT 36 U/L (16-61); Albumin, Serum 3.5 g/dL (3.2-5.0); Alkaline Phosphatase 46 U/L (45-117); Anion Gap 6 (5-15); BUN 16 mg/dL (7-18); BUN/Creat Ratio 20.6 RATIO (10-20); Calcium,Total 8.5 mg/dL (8.5-10.1); Chloride 106 mmol/L (98-107); Creatinine, Serum 0.78 mg/dL (0.70-1.30); EST Glomerular Filtration Rate 104 mL/min (>60); Est Glom Filt Rate - Afr Amer 126 mL/min (>60); Estimated Creatinine Clearance 64.81 ml/min; Globulin 3.1 g/dL (2.2-4.2); Glucose 162 mg/dL (74-106); Potassium 3.9 mmol/L (3.5-5.1); Protein, Total 6.6 g/dL (6.4-8.2); Sodium Level 141 mmol/L (136-145)
[2020-07-02] MEDS: 0.9% Saline Lock 10 ML Syringe IV (06:17)
--- NOTE | 2020-07-02 06:56 | EX.PCM.CONCC ---
Assessment & Plan Assessment/Plan (1) Stroke: Status: Acute Code(s): I63.9 - Cerebral infarction, unspecified Qualifiers: CVA mechanism: unspecified Qualified Code(s): I63.9 - Cerebral infarction, unspecified Plan: RECOMMENDATIONS: 1. Continue routine monitoring per TPA protocol. 2. Continue as needed antihypertensives. 3. Plan for repeat head imaging this evening. Orders have been placed. 4. PT/OT evaluations tomorrow morning. IMPRESSIONS: 1. Acute CVA status post TPA Plan to continue current supportive measures per TPA protocol. As needed antihypertensives will be continued. Plan for repeat head imaging this evening 24 hours post TPA administration. The patient will remain on bedrest until that time. PT/OT evaluations pending for tomorrow morning. 2. History of diabetes mellitus/obesity Complicates care, management, recovery and prognosis. Continue home medications as indicated. This note was generated with [employer] dictation software. It may contain incorrect words, spelling, and punctuation that were not noted in checking the note before signing. HPI Consult Data Date of Consult: 07/02/20 HPI Narrative Reason for Consultation: Acute CVA status post TPA HPI Narrative: The patient is a 74-year-old male, with a history as outlined below, who presented to the emergency department on July 01 with complaints of right arm/hand weakness that began rather acutely. The patient's medical history is otherwise only significant for diabetes mellitus. On presentation to the emergency department, the patient was noted to be afebrile and hemodynamically stable. He was maintaining appropriate oxygen saturations on room air. Laboratory evaluation revealed a normal white blood cell count. Coagulation profile was within normal limits. Chemistry profile was notable for a creatinine of 1.12. Troponin was negative. CT head revealed mild atrophy and periventricular white matter ischemic changes. CTA head and neck revealed moderate atherosclerotic disease of the carotids without evidence for hemodynamically significant stenosis. Chest x-ray revealed no acute cardiopulmonary process. Tele-neurology consultation was obtained. The decision was made to subsequently administer TPA. Following this, the patient was transferred to the medical intensive care unit for further management. As of this morning, the patient's right upper extremity weakness has now completely resolved. His last NIH was noted to be 0. PFSH Medical History (Updated 07/02/20 @ 00:55 by Carol Ann Carrillo) Cancer CPAP (continuous positive airway pressure) dependence Diabetes GERD (gastroesophageal reflux disease) Sleep apnea Home Medications aspirin 325 mg PO DAILY 07/01/20 [History Last Taken Unknown] empagliflozin [Jardiance] 25 mg PO DAILY 07/01/20 [History Last Taken Unknown] finasteride 5 mg PO DINNER 07/01/20 [History Last Taken Unknown] insulin glargine [Lantus Solostar U-100 Insulin] 10 unit SUBCUT BREAKFAST 07/01/20 [History Last Taken Unknown] sitagliptin-metformin [Janumet] 50 - 1,000 tab PO DAILY 07/01/20 [History Last Taken Unknown] tamsulosin 0.4 mg PO DINNER 07/01/20 [History Last Taken Unknown] Allergy/AdvReac Type Severity Reaction Status Date / Time No Known Allergies Allergy Verified 07/01/20 20:08 Family History (Updated 07/01/20 @ 23:[address] Layo Rosas MD) Other CVA (cerebral vascular accident) Surgical History H/O: knee surgery History of appendectomy Social History (Updated 07/02/20 @ 00:10 by Carol Ann Carrillo) adopted: No household members: spouse housing: house number of children: 3 financial difficulty paying for basics: not applicable service: No current occupational status: retired pets and animals: Yes leisure activities: exercise, games, hunting and fishing history of recent travel: No sexually active: Yes do you think of yourself as: straight/heterosexual current gender identity: male Smoking Status: Never smoker diet: low carbohydrate well-balanced diet: daily or most days caffeine: Yes eating out: 1-3 times/week during the past year weight has: remained stable what type of physical activity do you participate in: walking ROS Constitutional Constitutional: Denies chills, fatigue, fever(s) or headache(s) Eyes Eyes: Denies blurry vision or change in vision ENT HEENT: Denies dizziness or headache(s) Cardiovascular Cardiovascular: Denies chest pain Respiratory/Chest Respiratory/Chest: Denies cough or dyspnea Gastrointestinal Gastrointestinal: Denies abdominal pain, diarrhea, nausea or vomiting Genitourinary Genitourinary: Denies difficulty urinating Neurologic Neurologic: Reports focal weakness Psychiatric Psychiatric: Denies anxiety or depression Endocrine Endocrinology: Denies fatigue Hematologic/Lymphatic Hematologic/Lymphatic: Denies easy bleeding or easy bruising Physical Exam Narrative The patient's most recent lab work, culture data and imaging studies have all been personally reviewed. Const alert, oriented x3 and no apparent distress General Appearance: cooperative HEENT normocephalic and moist oral mucous membranes Eyes PERRL Neck no lymphadenopathy Chest inspection of chest normal Resp normal respiratory effort Auscultation: Negative for rales, rhonchi or wheezes Cardio regular rate and regular rhythm GI normal to inspection, nondistended, normoactive bowel sounds Extremity no clubbing, cyanosis or edema Skin no rashes or lesions noted Neuro oriented x3, CN's II-XII intact bilaterally and no focal motor deficits Psych cooperative and affect normal Lab / Micro Data Result Diagrams: 07/02/20 04:30 07/02/20 04:30 Labs: Laboratory Results - last 24 hr 07/01/20 07/01/20 07/01/20 20:10 20:17 20:17 WBC 6.3 RBC 4.63 Hgb 13.4 Hct 41.6 MCV 89.8 MCH 28.9 MCHC 32.2 RDW Std Deviation 42.7 RDW Coeff of Rosa Maria 13.0 Plt Count 221 MPV 9.6 Immature Gran % (Auto) 0.800 Neut % (Auto) 67.7 Lymph % (Auto) 22.1 Richardson % (Auto) 7.1 Eos % (Auto) 1.7 Baso % (Auto) 0.6 Absolute Neuts (auto) 4.3 Absolute Lymphs (auto) 1.39 Nucleated RBC % 0 PT 13.2 INR 1.1 APTT 27.3 Sodium Potassium Chloride Carbon Dioxide Anion Gap BUN Creatinine Estim Creat Clear Calc Est GFR (MDRD) Af Amer Est GFR (MDRD) Non-Af BUN/Creatinine Ratio Glucose Hemoglobin A1c Calcium Total Bilirubin AST ALT Alkaline Phosphatase Troponin I Total Protein Albumin Globulin Albumin/Globulin Ratio POC Glucose 269 H 07/01/20 07/01/20 07/02/20 20:17 20:17 04:30 WBC 6.0 RBC 4.52 L Hgb 13.3 Hct 40.7 MCV 90.0 MCH 29.4 MCHC 32.7 RDW Std Deviation 42.4 RDW Coeff of Rosa Maria 12.9 Plt Count 188 MPV 9.2 Immature Gran % (Auto) 0.700 Neut % (Auto) 66.2 Lymph % (Auto) 22.5 Richardson % (Auto) 7.6 Eos % (Auto) 2.2 Baso % (Auto) 0.8 Absolute Neuts (auto) 4.0 Absolute Lymphs (auto) 1.36 Nucleated RBC % 0 PT INR APTT Sodium 138 Potassium 3.8 Chloride 102 Carbon Dioxide 31.0 Anion Gap 5 BUN 21 H Creatinine 1.12 Estim Creat Clear Calc 61.63 Est GFR (MDRD) Af Amer 82 Est GFR (MDRD) Non-Af 68 BUN/Creatinine Ratio 18.8 Glucose 263 H Hemoglobin A1c 8.3 H Calcium 9.2 Total Bilirubin AST ALT Alkaline Phosphatase Troponin I < 0.015 Total Protein Albumin Globulin Albumin/Globulin Ratio POC Glucose 07/02/20 04:30 WBC RBC Hgb Hct MCV MCH MCHC RDW Std Deviation RDW Coeff of Rosa Maria Plt Count MPV Immature Gran % (Auto) Neut % (Auto) Lymph % (Auto) Richardson % (Auto) Eos % (Auto) Baso % (Auto) Absolute Neuts (auto) Absolute Lymphs (auto) Nucleated RBC % PT INR APTT Sodium 141 Potassium 3.9 Chloride 106 Carbon Dioxide 29.0 Anion Gap 6 BUN 16 Creatinine 0.78 Estim Creat Clear Calc 64.81 Est GFR (MDRD) Af Amer 126 Est GFR (MDRD) Non-Af 104 BUN/Creatinine Ratio 20.6 H Glucose 162 H Hemoglobin A1c Calcium 8.5 Total Bilirubin 0.50 AST 27 ALT 36 Alkaline Phosphatase 46 Troponin I Total Protein 6.6 Albumin 3.5 Globulin 3.1 Albumin/Globulin Ratio 1.1 POC Glucose Radiology Impression Brain CT 07/01/20 20:16 IMPRESSION: Mild atrophy and periventricular white matter ischemic change. No evidence for acute bleed. If concern for acute infarct MRI recommended.. Electronically Signed: Wali Real MD at 20:33 EDT , Service support , ADDENDUM: 07/01/202040 IMPRESSION: Mild atrophy and periventricular white matter ischemic change. No evidence for acute bleed. If concern for acute infarct MRI recommended.. N.B. : The above information has been verbally conveyed by Wali Real MD to Dr. Cooper Valverde DO, on 07/01/2020 20:34:07 (ET). Electronically Signed: Wali Real MD at 20:33 EDT , Service support , Chest X-Ray 07/01/20 20:16 IMPRESSION: No acute cardiopulmonary pathology Electronically Signed: Wali Real MD at 21:08 EDT , Service support , Head/Neck CTA 07/01/20 20:17 IMPRESSION: Moderate atherosclerotic disease of the carotids more severe on the left without evidence for hemodynamically significant stenosis Mild atherosclerotic disease of the brain Electronically Signed: Wali Real MD at 20:49 EDT , Service support , ADDENDUM: 07/01/202056 IMPRESSION: Moderate atherosclerotic disease of the carotids more severe on the left without evidence for hemodynamically significant stenosis Mild atherosclerotic disease of the brain N.B. : The above information has been verbally conveyed by Wali Real MD to Dr. Cooper Valverde DO, on 07/01/2020 20:50:47 (ET). Electronically Signed: Wali Real MD at 20:49 EDT , Service support , Charges/Coding Visit Charges Inpatient E&M: 73152 Init Hosp L3
--- NOTE | 2020-07-02 08:12 | CDU_ITS ---
Reason For Study: CVA with carotid disease Rt. Velocities/BP Lt. Velocities/BP Prox CCA 82.6/10.8 cm/sec. Prox CCA 68.3/9 cm/sec. Mid CCA 56.5/9.5 cm/sec. Mid CCA 70.9/13.3 cm/sec. Dist CCA 49.8/13.5 cm/sec. Dist CCA 59.6/10.7 cm/sec. Prox ICA 35.2/9.9 cm/sec. Prox ICA 63.1/13.3 cm/sec. Mid ICA 47.4/11.6 cm/sec. Mid ICA 113.8/33.4 cm/sec. Dist ICA 45.6/16 cm/sec. Dist ICA 61.8/20 cm/sec. Rt. ICA/CCA = 0.84. Lt. ICA/CCA = 1.67. Prox ECA 102.3/9 cm/sec. Prox ECA 92.9/8.8 cm/sec. Rt. Vert. 50.9/7.2. cm/sec. Lt. Vert. 31.7/8.1 cm/sec. Right Extracranial There is homogeneous, smooth atherosclerotic plaque noted in the right common carotid artery. There is heterogeneous, irregular atherosclerotic plaque noted in the right internal carotid artery. There is heterogeneous, irregular atherosclerotic plaque noted in the right external carotid artery. Antegrade flow is noted in the right vertebral artery. There is heterogeneous, irregular atherosclerotic plaque noted in the left bulb. Left Extracranial There is homogeneous, smooth atherosclerotic plaque noted in the left common carotid artery. There is heterogeneous, irregular atherosclerotic plaque noted in the left internal carotid artery. There is heterogeneous, irregular atherosclerotic plaque noted in the left external carotid artery. Antegrade flow is noted in the left vertebral artery. There is heterogeneous, irregular atherosclerotic plaque noted in the left bulb. Procedure Carotid Duplex 71715. This is a Carotid Duplex examination using B-mode, color flow and specral Doppler. Exam performed in department. VL/Carotid Duplex Ultrasound Interpretation Summary Irregular calcific plaque at the proximal right internal carotid artery with le ss than 50% stenosis Less than 50% stenosis right external carotid artery Irregular calcific plaque with shadowing at the proximal left internal carotid artery with less than 50% stenosis Less than 50% stenosis left external carotid artery Patent and antegrade vertebrals bilaterally No change from the previous examination of January 25, 2020 Ordering Physician: Maria De Jesus Castañeda Referring Physician: Svetlana Oneill M.D. Performed By: Qi Oneil RVT
--- NOTE | 2020-07-02 08:14 | PN.HOSP_ITS ---
Subjective Subjective: Patient following TPA administration with no acute events per self and per nursing report. He notes the right upper extremity usage has significantly improved and is near completely resolved. He is up in his ICU be d, eating using his right hand without any distress this morning. Patient denies fevers, chills, nausea, emesis, abdominal pain, chest pain or dyspnea. Objective Data Objective Data Vital Signs: Vital Signs Temp Pulse Resp BP Pulse Ox 97.3 F L 62 13 117/71 97 07/02/20 07:00 07/02/20 08:00 07/02/20 07:00 07/02/20 07:00 07/02/20 07:00 Oxygen Delivery Method Room Air Weight: 220 lb 10.923 oz Body Mass Index (BMI) 33.0 Finger Stick Blood Glucose 269 Intake & Output: Intake and Output for Last 24 Hours 06/30/20 07/01/20 07/02/20 23:59 23:59 23:59 Intake Total 181 / 181 951.67 / 951.67 Output Total 2100 / 2100 Balance 181 / -719 -1148.33 / -1148.33 Lab / Micro Data Result Diagrams: 07/02/20 04:30 07/02/20 04:30 Labs: Laboratory Results - last 24 hr 07/01/20 07/01/20 07/01/20 20:10 20:17 20:17 WBC 6.3 RBC 4.63 Hgb 13.4 Hct 41.6 MCV 89.8 MCH 28.9 MCHC 32.2 RDW Std Deviation 42.7 RDW Coeff of Rosa Maria 13.0 Plt Count 221 MPV 9.6 Immature Gran % (Auto) 0.800 Neut % (Auto) 67.7 Lymph % (Auto) 22.1 Hunt % (Auto) 7.1 Eos % (Auto) 1.7 Baso % (Auto) 0.6 Absolute Neuts (auto) 4.3 Absolute Lymphs (auto) 1.39 Nucleated RBC % 0 PT 13.2 INR 1.1 APTT 27.3 Sodium Potassium Chloride Carbon Dioxide Anion Gap BUN Creatinine Estim Creat Clear Calc Est GFR (MDRD) Af Amer Est GFR (MDRD) Non-Af BUN/Creatinine Ratio Glucose Hemoglobin A1c Calcium Total Bilirubin AST ALT Alkaline Phosphatase Troponin I Total Protein Albumin Globulin Albumin/Globulin Ratio POC Glucose 269 H 07/01/20 07/01/2007/02/21 20:17 20:17 04:30 WBC 6.0 RBC 4.52 L Hgb 13.3 Hct 40.7 MCV 90.0 MCH 29.4 MCHC 32.7 RDW Std Deviation 42.4 RDW Coeff of Rosa Maria 12.9 Plt Count 188 MPV 9.2 Immature Gran % (Auto) 0.700 Neut % (Auto) 66.2 Lymph % (Auto) 22.5 Hunt % (Auto) 7.6 Eos % (Auto) 2.2 Baso % (Auto) 0.8 Absolute Neuts (auto) 4.0 Absolute Lymphs (auto) 1.36 Nucleated RBC % 0 PT INR APTT Sodium 138 Potassium 3.8 Chloride 102 Carbon Dioxide 31.0 Anion Gap 5 BUN 21 H Creatinine 1.12 Estim Creat Clear Calc 61.63 Est GFR (MDRD) Af Amer 82 Est GFR (MDRD) Non-Af 68 BUN/Creatinine Ratio 18.8 Glucose 263 H Hemoglobin A1c 8.3 H Calcium 9.2 Total Bilirubin AST ALT Alkaline Phosphatase Troponin I < 0.015 Total Protein Albumin Globulin Albumin/Globulin Ratio POC Glucose 07/02/20 04:30 WBC RBC Hgb Hct MCV MCH MCHC RDW Std Deviation RDW Coeff of Rosa Maria Plt Count MPV Immature Gran % (Auto) Neut % (Auto) Lymph % (Auto) Hunt % (Auto) Eos % (Auto) Baso % (Auto) Absolute Neuts (auto) Absolute Lymphs (auto) Nucleated RBC % PT INR APTT Sodium 141 Potassium 3.9 Chloride 106 Carbon Dioxide 29.0 Anion Gap 6 BUN 16 Creatinine 0.78 Estim Creat Clear Calc 64.81 Est GFR (MDRD) Af Amer 126 Est GFR (MDRD) Non-Af 104 BUN/Creatinine Ratio 20.6 H Glucose 162 H Hemoglobin A1c Calcium 8.5 Total Bilirubin 0.50 AST 27 ALT 36 Alkaline Phosphatase 46 Troponin I Total Protein 6.6 Albumin 3.5 Globulin 3.1 Albumin/Globulin Ratio 1.1 POC Glucose Radiography Diagnostic Testing: Radiology Impression Brain CT 07/01/20 20:16 IMPRESSION: Mild atrophy and periventricular white matter ischemic change. No evidence for acute bleed. If concern for acute infarct MRI recommended.. Electronically Signed: Wali Real MD at 20:33 EDT , Service support , ADDENDUM: 07/01/202040 IMPRESSION: Mild atrophy and periventricular white matter ischemic change. No evidence for acute bleed. If concern for acute infarct MRI recommended.. N.B. : The above information has been verbally conveyed by Wali Real MD to Dr. Cooper Valverde DO, on 07/01/2020 20:34:07 (ET). Electronically Signed: Wali Real MD at 20:33 EDT , Service support , Chest X-Ray 07/01/20 20:16 IMPRESSION: No acute cardiopulmonary pathology Electronically Signed: Wali Real MD at 21:08 EDT , Service support , Head/Neck CTA 07/01/20 20:17 IMPRESSION: Moderate atherosclerotic disease of the carotids more severe on the left without evidence for hemodynamically significant stenosis Mild atherosclerotic disease of the brain Electronically Signed: Wali Real MD at 20:49 EDT , Service support , ADDENDUM: 07/01/202056 IMPRESSION: Moderate atherosclerotic disease of the carotids more severe on the left without evidence for hemodynamically significant stenosis Mild atherosclerotic disease of the brain N.B. : The above information has been verbally conveyed by Wali Real MD to Dr. Cooper Valverde DO, on 07/01/2020 20:50:47 (ET). Electronically Signed: Wali Real MD at 20:49 EDT , Service support , Physical Exam Narrative Physical Examination: General: awake, alert, oriented x 3 and cooperative, seated upright in the ICU bed in no apparent distress. Skin: normal color, turgor, no icterus, cyanosis. HEENT: AT/NC, EOMI, PERRLA, MMM. Lungs: Diminished breath sounds, greater bases, appropriate effort, no rales, ronchi or wheezing. Heart: Regular rate and rhythm; no gallop, rub audible. Abdomen: soft, obese, NTTP, ND, normal BS. Extremities: no cyanosis, clubbing, or edema. Neurological: patient awake, alert, oriented as noted; cognitive function appears baseline intact; pupils equally reactive to light and accomodation; cranial nerves II-XII grossly normal, moving all 4 extremities, no focal deficits, strength appears preserved, [id number] and [id number] appro priate, negative Babinski, sensation intact. Psychiatric: affect appears normal, no acute evidence of depressive or anxiety feelings. 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 ED on 07/01/20 with history of onset right upper extremity specifically hand weakness and mild paresthesias prompting ED evaluation. 1. RUE hand weakness concerning for CVA: Upon ED evaluation patient was evaluated by stroke telemetry neurologist and felt candidate for TPA administration. ED CT brain with no acute intracranial findings, CTPA with moderate atherosclerotic disease of the carotids more severe on the left without any evidence of hemodynamically significant stenosis as well as noted mild atherosclerotic disease of the brain. Following patient was admitted to the ICU, maintain on telemetry, Keith catheter placed given TPA administration, all labs deferred, will plan repeat CT head in 24 hours otherwise if MRI brain able to be performed at 24-hour brando will continue with this plan, if no obvious evidence of bleeding will initiate antiplatelet therapy at that time. Given noted carotid disease will obtain carotid ultrasound for follow-up outpatient with vascular surgery. Will allow permissive HTN although BP normal range currently, maintain on statin w/ AM FLP, fall precautions. ECHO with normal LV size, normal LV systolic function, EF 65%, normal diastology for age, mild MONTY, bubble contrast negative for right to left interatrial shunt. HgbA1c 8.3%, magnesium 2.4. PT, OT, ST, CM consulted per protocol. Will plan repeat consultation with Neurology once imaging completed. If CT head versus MRI brain without evidence of bleeding will also plan transition to PCU from ICU status. 2. Diabetes mellitus type II: Hold oral home regimen, patient initiated on low- dose long-acting insulin as well as insulin sliding scale, continued on a selective oral regimen, hemoglobin A1c 8.3%, nutrition consulted for education and teaching, ADA diet, accu checks w/ ISS. 3. BPH: Continue Flomax and Proscar regimen. 4. AUGUSTA: We will use CPAP nightly. 5. GERD: We will maintain on famotidine regimen. 6. DVT prophylaxis: SCDs, holding on any chemoprophylaxis given recent TPA administration as noted. 7. CODE STATUS: Full code. Visit Charges Inpatient E&M: 57222 Subs Hosp L3
[2020-07-02] MEDS: Insulin Lispro 100 UNIT/ML INSULN.PEN SC ×2 (08:24→12:11)
[2020-07-02 08:31] LABS: Bedside Glucose 171 mg/dL (70-110)
[2020-07-02 08:46] LABS: Magnesium 2.4 mg/dL (1.6-2.6)
[2020-07-02] MEDS: LINAGLIPTIN 5 MG TABLET PO (09:29)
[2020-07-02] MEDS: Empagliflozin 25 MG Tablet PO (09:29)
--- NOTE | 2020-07-02 09:50 | CASEMGMT ---
This RN CM participated in ICU multidisciplinary rounds. Pt was given TPA on arrival for stroke-like sx's and per nursing, NIH is currently 0. Pt is on bedrest until 2200 tonight s/p TPA and will have repeat CT at that time. Pt to then have MRI tomorrow as well as therapy. CM to complete assessment today and follow for therapy notes/MRI results. SStaten ISHAAN PRITCHETT
--- NOTE | 2020-07-02 11:55 | CASEMGMT ---
ISHAAN PRITCHETT assessment: Face to Face with patient for initial transition planning/care coordination assessment. ISHAAN PRITCHETT introduced self and role at [facility], pt voices understanding and consents to assessment. Pt is lying in bed in no distress. Pt is A/Ox4 and answers all questions appropriately. Pt is moving all extremities without difficulty and states he feels he is 'back to normal' but has not been up out of bed yet. Care providers, pharmacy, and demographics verified/updated. Presentation: Pt states was eating popcorn when he lost control of right hand, LKW 1930 Admitting dx: Acute CVA PCP: [facility] Specialists: Pt states no current specialists. Preferred Pharmacy: [facility] mail order Insurance: [facility] Prescription Benefit: [facility] Living Will/HPOA: Pt states has a LW/HPOA and is aware that they are not on file at [facility]. Pt states his , Jamila Hidalgo, is HPOA. LNOK: Jamila Hidalgo, Living Arrangements: Pt states lives with in 1 story home with basement and 1-2 steps in and states no concerns at home. Pt states is independent with ADL's. Transportation: Pt states drives self and states no transportation concerns. DME/HHC: Pt states has canes at home but does not use and states no need for any further DME. Pt states no hx of HHC or SNF. Pt states no concerns with going home at time of discharge. 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 Pt states does not smoke cigarettes but does occasionally drink ETOH. Pt states no further concerns/needs. CM to follow for therapy notes tomorrow(pt still on bedrest until 2200 tonight) and any further discharge planning/needs. Advised pt to ask for CM if any further questions/concerns/needs arise, voices understanding. Pt Goal: Home Plan: Home [place] ISHAAN PRITCHETT
[2020-07-02 12:16] LABS: Bedside Glucose 156 mg/dL (70-110)
--- NOTE | 2020-07-02 15:51 | CHAPLAIN ---
Type of Pastoral Visit _x__ Initial Visit ___ Follow-up Visit ___ On-call Visit ___ General Patient Visit ___ Spiritual Assessment ___ Family Conference ___ Bereavement ___ Rapid Response ___ Code Blue ___ Other (describe below) Pastoral Care Referral From _x__ Patient ___ Family ___ Nurse ___ Physician ___ Golf Course Equipment Operator ___ Associate Store Leader ___ Other (describe below) Sacrament/Intervention _x__ Active listening ___ Anointing ___ Pentecostalism ___ Bereavement ___ Communion ___ Roro exploration ___ ___ Life review _x__ Prayer ___ Reconciliation ___ Sacrament of Sick _x_ Supportive presence ___ Wedding ___ Other (describe below) Pastoral Comments
--- NOTE | 2020-07-02 16:18 | CASEMGMT ---
Social Work Note SW received consult for stroke pt, pt will need PHQ-9. SW unable to meet with today, will follow up with pt tomorrow. Qi Mari URGENT CARE PHYSICIAN ASSISTANT, RESIDENTIAL SUPPORT SPECIALIST
[2020-07-02] MEDS: Finasteride 5 MG Tablet PO (16:41)
[2020-07-02] MEDS: Tamsulosin HCl 0.4 MG Capsule PO (16:41)
[2020-07-02 16:45] LABS: Bedside Glucose 120 mg/dL (70-110)
--- NOTE | 2020-07-02 20:18 | CPS ---
Patient's home CPAP (setting CPAP 12) setup at the bedside for tonight.
[2020-07-02] MEDS: Atorvastatin Calcium 40 MG Tablet PO (21:13)
[2020-07-02 21:21] LABS: Bedside Glucose 121 mg/dL (70-110)
--- NOTE | 2020-07-02 22:25 | NURSING ---
Pt taken via bed toward CT for scheduled scan post TPA, STROKE ALERT ED paged overhead and pt returned to room, explained to pt and he was ok with that. CT will call unit when available again.
--- NOTE | 2020-07-02 22:57 | CT_ITS ---
EXAMINATION : Head CT w/out contrast HISTORY : 24 hour post TPA COMPARISON : 07/01/2020. TECHNIQUE : Multiple contiguous axial images were obtained from the skull base to the vertex without intravenous contrast. A radiation dose optimization technique was used for this scan. FINDINGS : There is no evidence for acute intracranial hemorrhage, mass effect, or midline shift. There is no extra-axial fluid collection. There are periventricular white matter changes consistent with chronic microvascular ischemic disease. There is sulcal widening and ventricular enlargement consistent with cerebral atrophy. There is normal haro-white differentiation, without CT evidence of acute ischemia or infarct. The skull base and calvarium are unremarkable. The orbits are unremarkable. Mucosal thickening of the maxillary sinuses and ethmoid air cells. The mastoid air cells are well-aerated. The soft tissues are unremarkable. CT/Brain/Head without Contrast IMPRESSION: No change when compared to prior from yesterday. No evidence of intracranial hemorrhage or acute infarct. Electronically Signed: Young Adhikari MD at 23:14 EDT Tel , Service support ,
[2020-07-03] VITALS (12 sets, daily range): BP systolic 105–127; BP diastolic 53–81; PULSE 60–84; RESP 10–18; TEMP 36.4–36.6; O2SAT 93–95; BMI 33.0
--- NOTE | 2020-07-03 03:22 | NURSING ---
Report called to ISHAAN Fields on PCU for pt xfer to rm [id number].
[2020-07-03 03:46] LABS: Absolute Lymphocyte Count 1.05 X10^3/uL (0.83-4.51); Basophil# 0.05 X10^3/uL; Basophil% 0.6 % (0-1); Eosinophils% 1.3 % (0-5); Hematocrit 43.8 % (40-54); Lymphocyte # 1.05 X10^3/ul (0.83-4.51); Lymphocyte % 13.5 % (19-41); Mean Corpuscular Hgb 28.6 pg (27.0-32.0); Mean Corpuscular Volume 89.6 fL (80-94); Mean Platelet Vol. 9.5 fl (6.2-12.0); Monocyte# 0.55 X10^3/uL; Monocyte% 7.1 % (0-10); NRBC Flagged by Analyzer 0 % (0-5); Neutrophil # 5.96 X10^3/uL (2.7-7.7); Neutrophil % 76.9 % (47-70); Platelet Count 187 K/mm3 (150-450); RBC Distribution Width SD 42.5 fl (35.1-43.9); Red Blood Count 4.89 M/mm3 (4.6-6.2); White Blood Count 7.8 K/mm3 (4.4-11.0)
[2020-07-03 04:02] LABS: AST(SGOT) 35 U/L (15-37); Alanine Aminotransfer ALT/SGPT 39 U/L (16-61); Albumin, Serum 3.6 g/dL (3.2-5.0); Alkaline Phosphatase 44 U/L (45-117); Anion Gap 8 (5-15); BUN 16 mg/dL (7-18); BUN/Creat Ratio 20.7 RATIO (10-20); Calcium,Total 8.8 mg/dL (8.5-10.1); Chloride 104 mmol/L (98-107); Cholesterol 137 mg/dL (200); Creatinine, Serum 0.77 mg/dL (0.70-1.30); EST Glomerular Filtration Rate 104 mL/min (>60); Est Glom Filt Rate - Afr Amer 126 mL/min (>60); Estimated Creatinine Clearance 64.81 ml/min; Globulin 3.5 g/dL (2.2-4.2); Glucose 157 mg/dL (74-106); High Density Lipoprotein 48 mg/dL; Potassium 4.2 mmol/L (3.5-5.1); Protein, Total 7.1 g/dL (6.4-8.2); Sodium Level 137 mmol/L (136-145); Triglycerides 141 mg/dL; Very Low Density Lipoprotein 28 mg/dL (5-40)
--- NOTE | 2020-07-03 06:29 | PCM.PN.HOSP ---
Objective Data Objective Data Vital Signs: Vital Signs Temp Pulse Resp BP Pulse Ox 97.8 F 73 18 115/65 95 07/03/20 06:19 07/03/20 06:19 07/03/20 06:19 07/03/20 06:19 07/03/20 06:19 Oxygen Delivery Method Room Air Weight: 215 lb 9.793 oz Body Mass Index (BMI) 33.0 Finger Stick Blood Glucose 269 Intake & Output: Intake and Output for Last 24 Hours 07/01/20 07/02/20 07/03/20 23:59 23:59 23:59 Intake Total 181 / 181 4438.33 / 5088.33 650 / 650 Output Total 8075 / 8875 1200 / 1200 Balance 181 / -719 -3636.67 / -3786.67 -550 / -550 Lab / Micro Data Result Diagrams: 07/03/20 03:20 07/03/20 03:20 Labs: Laboratory Results - last 24 hr 07/02/20 07/02/20 07/02/20 04:30 08:20 12:09 WBC RBC Hgb Hct MCV MCH MCHC RDW Std Deviation RDW Coeff of Rosa Maria Plt Count MPV Immature Gran % (Auto) Neut % (Auto) Lymph % (Auto) [place] % (Auto) Eos % (Auto) Baso % (Auto) Absolute Neuts (auto) Absolute Lymphs (auto) Nucleated RBC % Sodium Potassium Chloride Carbon Dioxide Anion Gap BUN Creatinine Estim Creat Clear Calc Est GFR (MDRD) Af Amer Est GFR (MDRD) Non-Af BUN/Creatinine Ratio Glucose Calcium Magnesium 2.4 Total Bilirubin AST ALT Alkaline Phosphatase Total Protein Albumin Globulin Albumin/Globulin Ratio Triglycerides Cholesterol LDL Cholesterol VLDL Cholesterol HDL Cholesterol POC Glucose 171 H 156 H 07/02/20 07/02/20 07/03/20 16:40 21:11 03:20 WBC 7.8 RBC 4.89 Hgb 14.0 Hct 43.8 MCV 89.6 MCH 28.6 MCHC 32.0 RDW Std Deviation 42.5 RDW Coeff of Rosa Maria 13.0 Plt Count 187 MPV 9.5 Immature Gran % (Auto) 0.600 Neut % (Auto) 76.9 H Lymph % (Auto) 13.5 L [place] % (Auto) 7.1 Eos % (Auto) 1.3 Baso % (Auto) 0.6 Absolute Neuts (auto) 6.0 Absolute Lymphs (auto) 1.05 Nucleated RBC % 0 Sodium Potassium Chloride Carbon Dioxide Anion Gap BUN Creatinine Estim Creat Clear Calc Est GFR (MDRD) Af Amer Est GFR (MDRD) Non-Af BUN/Creatinine Ratio Glucose Calcium Magnesium Total Bilirubin AST ALT Alkaline Phosphatase Total Protein Albumin Globulin Albumin/Globulin Ratio Triglycerides Cholesterol LDL Cholesterol VLDL Cholesterol HDL Cholesterol POC Glucose 120 H 121 H 07/03/20 03:20 WBC RBC Hgb Hct MCV MCH MCHC RDW Std Deviation RDW Coeff of Rosa Maria Plt Count MPV Immature Gran % (Auto) Neut % (Auto) Lymph % (Auto) [place] % (Auto) Eos % (Auto) Baso % (Auto) Absolute Neuts (auto) Absolute Lymphs (auto) Nucleated RBC % Sodium 137 Potassium 4.2 Chloride 104 Carbon Dioxide 25.0 Anion Gap 8 BUN 16 Creatinine 0.77 Estim Creat Clear Calc 64.81 Est GFR (MDRD) Af Amer 126 Est GFR (MDRD) Non-Af 104 BUN/Creatinine Ratio 20.7 H Glucose 157 H Calcium 8.8 Magnesium Total Bilirubin 0.50 AST 35 ALT 39 Alkaline Phosphatase 44 L Total Protein 7.1 Albumin 3.6 Globulin 3.5 Albumin/Globulin Ratio 1.0 Triglycerides 141 Cholesterol 137 LDL Cholesterol 61 VLDL Cholesterol 28 HDL Cholesterol 48 POC Glucose Radiography Diagnostic Testing: Radiology Impression Echocardiogram 07/01/20 23:37 Interpretation Summary Normal LV size. Left ventricular systolic function is normal. The estimated ejection fraction is 65 %. Normal diastology for age. Mild (1+) aortic valve insufficiency. Bubble contrast study negative for right to left interatrial shunt. Ordering Physician: Layo Rosas Referring Physician: SVETLANA SIDDIQUI Performed By: Sandie Neri, RDCS, RVT Carotid Duplex 07/02/20 08:12 Interpretation Summary Irregular calcific plaque at the proximal right internal carotid artery with less than 50% stenosis Less than 50% stenosis right external carotid artery Irregular calcific plaque with shadowing at the proximal left internal carotid artery with less than 50% stenosis Less than 50% stenosis left external carotid artery Patent and antegrade vertebrals bilaterally No change from the previous examination of January 25, 2020 Ordering Physician: Maria De Jesus Castañeda Referring Physician: Svetlana Siddiqui M.D. Performed By: Qi Oneil, T Brain CT 07/02/20 22:57 IMPRESSION: No change when compared to prior from yesterday. No evidence of intracranial hemorrhage or acute infarct. Electronically Signed: Young Adhikari MD at 23:14 EDT Tel , Service support ,
--- NOTE | 2020-07-03 08:00 | MRI_ITS ---
We are attempting to reach an attending provider to discuss findings. An addendum with communication details will be sent when the communication is complete. STUDY: MRI BRAIN WITHOUT CONTRAST REASON FOR EXAM: Male, 74 years old. CVA -- MRI 24 hours after IV alteplase, contraction right hand TECHNIQUE: Standardized multiplanar fat and water weighted pulse sequences were obtained. COMPARISON: CT head without contrast 07/02/2020. FINDINGS: Small nodular and curvilinear restricted diffusion in the cortex of the left posterior central gyrus. These 2 areas are visible on the T2 FLAIR sequence and are consistent with subacute lacunar ischemic infarcts. Normal size of the ventricles and extra-axial spaces for the patient''s age. Normal white matter tracts of the supratentorial brain. Normal bilateral basal ganglia. Normal thalami. There is no extra-axial fluid accumulation. Normal flow voids within the major intracranial circulation suggesting patency by spin echo criteria. Normal sella turcica, pituitary gland, infundibular stalk, optic chiasm and hypothalamus. Normal tectal plate and pineal gland. Normal midbrain, delmer and medulla. Normal cerebellum. Normal basal cisterns. Normal bilateral temporal bones. Normal bilateral internal auditory canals. No demonstrated orbital abnormality, within the constraints of a routine brain study. Air-fluid level in the right matter sinus and mucosal thickening in the maxillary sinuses are unchanged. Normal calvarium and skull base. Normal visualized soft tissue structures. Normal visualized upper cervical spine. MRI/Brain without Contrast IMPRESSION: 2 subacute lacunar ischemic infarcts in the cortex of the left postcentral gyrus (series 4, images 22-24). Electronically Signed: Ignacio Connell MD at 10:00 EDT , Service support ,
[2020-07-03] MEDS: Aspirin 81 MG TAB.CHEW PO (08:03)
[2020-07-03] MEDS: Insulin Lispro 100 UNIT/ML INSULN.PEN SC (08:03)
[2020-07-03] MEDS: Empagliflozin 25 MG Tablet PO ×2 (08:05)
[2020-07-03] MEDS: LINAGLIPTIN 5 MG TABLET PO (08:05)
--- NOTE | 2020-07-03 10:01 | TELEMED_ITS ---
[facility] Tele[facility] has confirmed receipt of a request for visit. This document confirms receipt of the order initiating the consult. To find the results of the consultation, please view the patient's reports for the scanned Telemed Consult.
--- NOTE | 2020-07-03 11:14 | CASEMGMT ---
SW completed a PHQ 9 with patient as he had a Stroke. He scored a 3 which indicates minimal depression. He declined need for any resources. JAZZMINE also gave patient a rac card for the [facility] Stroke support group. He agreed to be added to the mailing list. JAZZMINE did let him know that right now there are not in person meetings, but they are sending out newsletters. Hyacinth Burnette MSW NATALI
[2020-07-03 11:15] LABS: Bedside Glucose 154 mg/dL (70-110)
[2020-07-03 11:31] LABS: Bedside Glucose 168 mg/dL (70-110)
--- NOTE | 2020-07-03 12:00 | DCINST_ITS ---
Discharge Instructions Outpatient Procedure Reason For Visit: ACUTE CVA Diet Discharge Diet: 1800 Calorie Control Diet Activity Discharge Activity: Return to Normal Activity May resume sexual activity in: No Restrictions Weight Bearing Status: Weight bearing as tolerated Dressing / Incision Call your doctor if you observe: Fever of 101 or Higher, Inability to urinate, Shortness of breath, Dizziness, Chest pain, Increased palpitations (irregular heartbeat) and Uncontrolled pain Suture Line Care: - (Any concerning recurrent onset neurological deficits/symptoms.) Follow Up Care Please Follow Up With: Svetlana Oneill MD When: Within 2-3 days to review admission CVA s/p TPA administration. Test Results: Test results from this visit will be discussed in further detail at your follow-up appointment, if applicable. 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 Continue to work with your primary care to make diet/lifestyle and sometimes medication changes to achieve this goal. Continue to monitor your carotid disease (< 50% both sides) on an outpatient basis per your primary care physician. Discharge Orders/Prescriptions Prescriptions: New atorvastatin 40 mg Tablet 40 mg PO QHS 30 Days Qty: 30 RF: 0 aspirin 81 mg Tablet,Chewable 81 mg PO DAILY 30 Days Qty: 30 RF: 0 clopidogrel 75 mg Tablet 75 mg PO DAILY 30 Days Qty: 30 RF: 0 famotidine 20 mg tablet 20 mg PO DAILY Qty: 30 RF: 0 Continued tamsulosin 0.4 mg capsule 0.4 mg PO DINNER RF: 0 finasteride 5 mg tablet 5 mg PO DINNER RF: 0 Janumet 50-1,000 mg tablet 50 - 1,000 tab PO DAILY RF: 0 Lantus Solostar U-100 Insulin 100 unit/mL (3 mL) insulin pen 10 unit SUBCUT BREAKFAST RF: 0 Jardiance 25 mg tablet 25 mg PO DAILY RF: 0 Discontinued aspirin 325 mg Tablet 325 mg PO DAILY RF: 0 Referrals: Svetlana Oneill MD [Primary Care Provider] - (Follow-up 2-3 days to review admission.) Tevin Onofre MD [STAFF PHYSICIAN] - (Follow-up in 2 weeks per Tele-stroke Neurology request.) Disposition Disposition (needs filled in before D/C Order can be placed): Home, self care
--- NOTE | 2020-07-03 12:18 | PCM.DC.SUM ---
Providers Date of Admission: 07/01/20 Primary Care Physician: Dr. Svetlana Oneill MD Consultations 07/01/20 22:35 Consult: Licensing Engineer / Pulmonary Medicine Routine Consulting Provider: Pulmonary Medicine priya [place] Reason for Consult: stroke for alteplase EMERGENT Consult: No MD Notified: Yes Date Notified:: 07/01/20 Time Notified: 23:06 Method of Notification: Text [facility] Telestroke and Teleneurology consultations. Cardiology notified at patient discharge and also amenable to holter monitor set-up. Reason For Visit: ACUTE CVA Diagnosis Discharge Diagnosis (1) Stroke: Status: Acute Code(s): I63.9 - Cerebral infarction, unspecified Qualifiers: CVA mechanism: unspecified Qualified Code(s): I63.9 - Cerebral infarction, unspecified (2) Diabetes mellitus, type 2: Status: Acute Code(s): E11.9 - Type 2 diabetes mellitus without complications Qualifiers: Diabetes mellitus residential insulin use: with residential use Diabetes mellitus complication status: with neurologic complications Diabetes mellitus complication detail: with polyneuropathy Qualified Code(s): E11.42 - Type 2 diabetes mellitus with diabetic polyneuropathy; Z79.4 - assisted (current) use of insulin (3) GERD (gastroesophageal reflux disease): Status: Acute Code(s): K21.9 - Gastro-esophageal reflux disease without esophagitis (4) Sleep apnea: Status: Acute Code(s): G47.30 - Sleep apnea, unspecified Medications at Discharge Home Medications Janumet 50 - 1,000 tab PO DAILY 07/01/20 Jardiance 25 mg PO DAILY 07/01/20 Lantus Solostar U-100 Insulin 10 unit SUBCUT BREAKFAST 07/01/20 finasteride 5 mg PO DINNER 07/01/20 tamsulosin 0.4 mg PO DINNER 07/01/20 aspirin 81 mg PO DAILY 30 Days #30 tab 07/03/20 atorvastatin 40 mg PO QHS 30 Days #30 tab 07/03/20 clopidogrel 75 mg PO DAILY 30 Days #30 tab 07/03/20 famotidine 20 mg PO DAILY #30 tab 07/03/20 Hospital Course Operations None Procedures 2-D Echocardiogram, EKG and - (TPA administration with Stroke Call) Summary of Care Provided Minutes Spent on Discharge: 35 Hospital Course: The patient is a 74 y/o M w/ PMHx: Diabetes mellitus type II, [place] on CPAP q HS, BPH, GERD who presented to the [facility] ED on 07/01/20 with history of onset right upper extremity specifically hand weakness and mild paresthesias prompting ED evaluation. Upon ED evaluation patient was evaluated by stroke telemetry neurologist and felt candidate for TPA administration. ED CT brain with no acute intracranial findings, CTPA with moderate atherosclerotic disease of the carotids more severe on the left without any evidence of hemodynamically significant stenosis as well as noted mild atherosclerotic disease of the brain. Following patient was initially admitted to the ICU, maintained on telemetry, Keith catheter placed given TPA administration, repeat CT head in 24 hours without acute evidence of any bleed therefore antiplt therapy started and patient transitioned from the ICU to PCU status. MRI brain obtained with two subacute lacunar ischemic infarcts in the cortext of the left postcentral gyrus. Given noted carotid disease obtained carotid ultrasound additionally with irregular calcific plaque at the proximal right ICA with less than 50% stenosis, less than 50% stenosis right external carotid artery, regular calcific plaque with shadowing the proximal left ICA with less than 50% stenosis, less than 50% stenosis left external carotid artery, patent antegrade vertebrals bilaterally with reported no change from 01/25 2020 evaluation. ECHO with normal LV size, normal LV systolic function, EF 65%, normal diastology for age, mild MONTY, bubble contrast negative for right to left interatrial shunt. HgbA1c 8.3%, magnesium 2.4. PT, OT, ST, CM consulted per protocol with complete resolution of neurological symptoms following TPA administration and clearance for discharge to home. HgbA1c 8.3% with nutrition consultation performed, restarted on oral regimen and continued home insulin with diet/lifestyle recommendations with close PCP follow-up. Teleneurology evaluation re-performed following MRI results and agreed to current care with continued asa, plavix, statin therapy, diabetic interventions as noted in addition to holter monitor set-up at discharge and requested neurology follow-up in 2 weeks all of which was requested at his discharge. Patient discharged to home in stable improved condition with PCP follow-up within 2-3 days and Neurology follow-up in 2 weeks. DAY OF DISCHARGE PROGRESS NOTE: Subjective: Patient without acute event overnight per self and nursing report. Patient with unremarkable CT head the evening prior therefore transition to PCU status with follow-up MRI this morning as noted. Patient continues to deny any recurrent neurological symptoms and has full complete function of his right upper extremity. Patient denies fever, chills, nausea, emesis, abdominal pain, chest pain or dyspnea. Patient agreeable to discharge to home especially given recent therapy evaluation with no recommended discharge needs. Patient will be discharged with follow-up with primary care physician in addition to neurology as noted. Objective: T 97.5, heart rate 81, BP 116/73, respiratory rate 18, 94% on room air. Physical Examination: General: awake, alert, oriented x 3, seated upright in the PCU bedside chair, NAD. Skin: normal color, turgor, no icterus, cyanosis. HEENT: AT/NC, EOMI, PERRLA, MMM. Lungs: Mildly decreased BS, greater bases, appropriate effort, no rales, ronchi or wheezing. Heart: Regular rate and rhythm; no gallop, rub audible. Abdomen: soft, obese, NTTP, ND, normal BS. Extremities: no cyanosis, clubbing, or edema. Neurological: patient awake, alert, oriented as noted; cognitive function appears baseline intact; pupils equally reactive to light and accomodation; cranial nerves II-XII grossly normal, moving all 4 extremities, no focal deficits, strength appears preserved, [id number] and [id number] appropriate, negative Babinski, sensation intact. Psychiatric: affect appears normal, no acute evidence of depressive or anxiety feelings. Assessment and Plan: Please see hospital summary above. ABG / Lab / Microbiology Data Result Diagrams: 07/03/20 03:20 07/03/20 03:20 Laboratory: Laboratory Results - last 24 hr 07/02/20 07/02/20 07/03/20 16:40 21:11 03:20 WBC 7.8 RBC 4.89 Hgb 14.0 Hct 43.8 MCV 89.6 MCH 28.6 MCHC 32.0 RDW Std Deviation 42.5 RDW Coeff of Rosa Maria 13.0 Plt Count 187 MPV 9.5 Immature Gran % (Auto) 0.600 Neut % (Auto) 76.9 H Lymph % (Auto) 13.5 L [place] % (Auto) 7.1 Eos % (Auto) 1.3 Baso % (Auto) 0.6 Absolute Neuts (auto) 6.0 Absolute Lymphs (auto) 1.05 Nucleated RBC % 0 Sodium Potassium Chloride Carbon Dioxide Anion Gap BUN Creatinine Estim Creat Clear Calc Est GFR (MDRD) Af Amer Est GFR (MDRD) Non-Af BUN/Creatinine Ratio Glucose Calcium Total Bilirubin AST ALT Alkaline Phosphatase Total Protein Albumin Globulin Albumin/Globulin Ratio Triglycerides Cholesterol LDL Cholesterol VLDL Cholesterol HDL Cholesterol POC Glucose 120 H 121 H 07/03/20 07/03/20 07/03/20 03:20 07:58 11:23 WBC RBC Hgb Hct MCV MCH MCHC RDW Std Deviation RDW Coeff of Rosa Maria Plt Count MPV Immature Gran % (Auto) Neut % (Auto) Lymph % (Auto) [place] % (Auto) Eos % (Auto) Baso % (Auto) Absolute Neuts (auto) Absolute Lymphs (auto) Nucleated RBC % Sodium 137 Potassium 4.2 Chloride 104 Carbon Dioxide 25.0 Anion Gap 8 BUN 16 Creatinine 0.77 Estim Creat Clear Calc 64.81 Est GFR (MDRD) Af Amer 126 Est GFR (MDRD) Non-Af 104 BUN/Creatinine Ratio 20.7 H Glucose 157 H Calcium 8.8 Total Bilirubin 0.50 AST 35 ALT 39 Alkaline Phosphatase 44 L Total Protein 7.1 Albumin 3.6 Globulin 3.5 Albumin/Globulin Ratio 1.0 Triglycerides 141 Cholesterol 137 LDL Cholesterol 61 VLDL Cholesterol 28 HDL Cholesterol 48 POC Glucose 154 H 168 H Radiography Diagnostic Testing: Radiology Impression Carotid Duplex 07/02/20 08:12 Interpretation Summary Irregular calcific plaque at the proximal right internal carotid artery with less than 50% stenosis Less than 50% stenosis right external carotid artery Irregular calcific plaque with shadowing at the proximal left internal carotid artery with less than 50% stenosis Less than 50% stenosis left external carotid artery Patent and antegrade vertebrals bilaterally No change from the previous examination of January 25, 2020 Ordering Physician: Maria De Jesus Castañeda Referring Physician: Svetlana Oneill M.D. Performed By: Qi Oneil, T Brain CT 07/02/20 22:57 IMPRESSION: No change when compared to prior from yesterday. No evidence of intracranial hemorrhage or acute infarct. Electronically Signed: Young Adhikari MD at 23:14 EDT Tel , Service support , Brain MRI 07/03/20 08:00 IMPRESSION: 2 subacute lacunar ischemic infarcts in the cortex of the left postcentral gyrus (series 4, images 22-24). Electronically Signed: Ignacio Connell MD at 10:00 EDT , Service support , ADDENDUM: 07/03/20 1016 IMPRESSION: 2 subacute lacunar ischemic infarcts in the cortex of the left postcentral gyrus (series 4, images 22-24). N.B. : The above information has been verbally conveyed by Ignacio Connell MD to Ignacio Mcclure RN, on 07/03/2020 10:09:47 (ET). Electronically Signed: Ignacio Connell MD at 10:00 EDT , Service support , D/C Instructions Discharge Diet: 1800 Calorie Control Diet Discharge Activity: Return to Normal Activity May resume sexual activity in: No Restrictions Weight Bearing Status: Weight bearing as tolerated Call your doctor if you observe: Fever of 101 or Higher, Inability to urinate, Shortness of breath, Dizziness, Chest pain, Increased palpitations (irregular heartbeat) and Uncontrolled pain Suture Line Care: - (Any concerning recurrent onset neurological deficits/symptoms.) Please Follow Up With: Svetlana Oneill MD When: Within 2-3 days to review admission CVA s/p TPA administration. Meaningful Use Info Meaningful Use Diagnoses (Choose all that apply): Ischemic CVA CVA Therapy Assessed for PT,OT and/or ST?: Yes Ischemic Stroke Antithrombotic order at d/c?: Yes Dx of Atrial fib/flutter?: No Anticoagulant at discharge?: No Reason anticoagulant not ordered: Treatment not Indicated Statins at discharge?: Yes Primary Dx Acute Ischemic CVA?: Yes IV tPA ordered during stay?: Yes Discharge Plan Admission Admit Date/Time: 07/01/20 22:31 Primary Reason for Your Visit: Acute CVA s/p TPA administration Attending Provider: Maria De Jesus Castañeda Primary Care Provider: Svetlana Oneill Consulting Providers: Craig Ivan ; Abiodun Ryan ; Juany Hudson 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 Continue to work with your primary care to make diet/lifestyle and sometimes medication changes to achieve this goal. Continue to monitor your carotid disease (< 50% both sides) on an outpatient basis per your primary care physician. Discharge Orders/Prescriptions Prescriptions: New atorvastatin 40 mg Tablet 40 mg PO QHS 30 Days Qty: 30 RF: 0 aspirin 81 mg Tablet,Chewable 81 mg PO DAILY 30 Days Qty: 30 RF: 0 clopidogrel 75 mg Tablet 75 mg PO DAILY 30 Days Qty: 30 RF: 0 famotidine 20 mg tablet 20 mg PO DAILY Qty: 30 RF: 0 Continued tamsulosin 0.4 mg capsule 0.4 mg PO DINNER RF: 0 finasteride 5 mg tablet 5 mg PO DINNER RF: 0 Janumet 50-1,000 mg tablet 50 - 1,000 tab PO DAILY RF: 0 Lantus Solostar U-100 Insulin 100 unit/mL (3 mL) insulin pen 10 unit SUBCUT BREAKFAST RF: 0 Jardiance 25 mg tablet 25 mg PO DAILY RF: 0 Discontinued aspirin 325 mg Tablet 325 mg PO DAILY RF: 0 Referrals: Svetlana Oneill MD [Primary Care Provider] - (Please call to set up an appointment. Their office is closed today 07/03/20) Tevin Onofre MD [STAFF PHYSICIAN] - (Follow-up in 2 weeks per Tele-stroke Neurology request.) Disposition Disposition (needs filled in before D/C Order can be placed): Home, self care Visit Charges Inpatient E&M: 07524 Disch Hosp
[2020-07-03] MEDS: Clopidogrel Bisulfate 75 MG Tablet PO (12:32)
--- NOTE | 2020-07-03 12:33 | PHA.DC.MC ---
Pharmacy Service has performed discharge medication reconciliation and counseling for this patient. 1. ATORVASTATIN 40MG PO QHS 2. CLOPIDOGREL 75MG PO DAILY 3. FAMOTIDINE 20MG PO DAILY The patient's discharge medication list was reviewed for discrepancies and discrepancies were resolved. Home Medications Janumet 50 - 1,000 tab PO DAILY 07/01/20 Jardiance 25 mg PO DAILY 07/01/20 Lantus Solostar U-100 Insulin 10 unit SUBCUT BREAKFAST 07/01/20 finasteride 5 mg PO DINNER 07/01/20 tamsulosin 0.4 mg PO DINNER 07/01/20 aspirin 81 mg PO DAILY 30 Days #30 tab 07/03/20 atorvastatin 40 mg PO QHS 30 Days #30 tab 07/03/20 clopidogrel 75 mg PO DAILY 30 Days #30 tab 07/03/20 famotidine 20 mg PO DAILY #30 tab 07/03/20 The patient was counseled on the following discharge medications and changes in medications for homegoing were reviewed. The Reason for Use, instructions for use, and potential side effects were reviewed for all new medications. The patient's questions regarding all of their medications were answered. The patient was able to verbally demonstrate an understanding of their discharge medications. Patient counseled by pharmacy grad intern
== END 2020-07-03 15:54 | disposition home or self-care (01) | DRG 63 ==
LOC: ED 21:36 → ICU 07-02 02:30 → PCU 07-03 04:01
PROVIDERS: Admitting Provider Hospitalist; Emergency Provider Emergency Medicine; PCP Internal Medicine; Visit Provider Family Medicine
DX: I63.9 Cerebral infarction, unspecified (principal); R29.701 NIHSS score 1; G83.21 Monoplegia of upper limb affecting right dominant side; I65.23 Occlusion and stenosis of bilateral carotid arteries; E11.42 Type 2 diabetes mellitus with diabetic polyneuropathy; K21.9 Gastro-esophageal reflux disease without esophagitis; N40.0 Benign prostatic hyperplasia without lower urinary tract symptoms; G47.33 Obstructive sleep apnea (adult) (pediatric); E66.9 Obesity, unspecified; Z68.33 Body mass index [BMI] 33.0-33.9, adult; Z79.4 Long term (current) use of insulin; Z79.899 Other long term (current) drug therapy; Z82.3 Family history of stroke
CPT/HCPCS: 70450; 70496; 70498; 70551; 71045; 80048; 80053; 80061; 82962; 83036; 83735; 84484; 85025; 85610; 85730; 93005; 93306; 93880; 97161; 97166; 97802; 99285; J2997; J7030; Q9957; Q9967; A4216

== ENCOUNTER → 2020-07-03 13:52 | Outpatient (CLI) | payer MEDICARE, SELFPAY ==
[2020-07-03 08:10] VITALS: BMI 33.0
== END ==
PROVIDERS: PCP Internal Medicine; Visit Provider Family Medicine
DX: R00.0 Tachycardia, unspecified (principal)
CPT/HCPCS: 93225; 93226

== ENCOUNTER 2024-09-13 08:57 | Inpatient (IN) | payer MEDICARE, SELFPAY ==
[2024-09-13] VITALS (12 sets, daily range): BP systolic 113–138; BP diastolic 70–87; PULSE 55–81; RESP 15–20; TEMP 36.3–36.9; O2SAT 90–99; BMI 31.6; BMI 31.5; BMI 30.3
--- NOTE | 2024-09-13 09:18 | EKG12_ITS ---
Test Reason : Blood Pressure : */* mmHG Vent. Rate : 64 BPM Atrial Rate : 64 BPM P-R Int : 218 ms QRS Dur : 88 ms QT Int : 402 ms P-R-T Axes : 49 44 16 degrees QTcB Int : 414 ms Sinus rhythm with 1st degree A-V block Otherwise normal ECG Confirmed by Enio Nieto ([id number]), photo editor KANU REN ([id number]) on 09/14/2024 11:24:06 AM Referred By: Confirmed By: Enio Nieto
--- NOTE | 2024-09-13 09:18 | CT_ITS ---
PROCEDURE: CTA HEAD AND NECK W/ CONTRAST 09/13/2024 REASON FOR EXAM: CVA TECHNIQUE: CTA HEAD AND NECK W/ CONTRAST Multiplanar Sagittal and Coronal images were obtained. CONTRAST: 100 cc Isovue 370 One or more dose reduction techniques were used (e.g., Automated exposure control, adjustment of the mA and/or kV according to patient size, use of iterative reconstruction technique). RADIATION DOSE SUMMARY: DLP: 1549 mGycm COMPARISON: July 01, 2020 FINDINGS: Aortic Arch: Patent Brachiocephalic and Subclavians: Patent RIGHT Carotid: Right CCA: Patent Right ICA: Patent Maximum stenosis (NASCET): 0 % Right ECA: Patent LEFT Carotid: Left CCA: Patent Left ICA: There is a high-grade stenosis with soft and hard plaque Maximum stenosis (NASCET): 99 % Left ECA: Patent Vertebrals: Patent RIGHT Vertebral: Terminates in the PICA LEFT Vertebral: Dominant Anatomy: There is mild generalized atrophy. There is no mass or hemorrhage identified in the brain. There is no extra-axial collection or midline shift. The paranasal sinuses appear clear. Aneurysm or avm: None Anterior cerebral arteries: Patent Middle cerebral arteries: Patent Basilar artery: Patent Posterior cerebral arteries: Patent Other major branches of the posterior circulation: Patent calcified plaque is noted. Major venous structures: Patent Other findings: Neck: Unremarkable lungs: Unremarkable bones: There is no acute bony abnormality. CT/CTA Head AND Neck W/ Contrast IMPRESSION: There is a 99% stenosis in the proximal left ICA. The left vertebral is dominant. The right vertebral terminates in the PICA. Critical results were discussed with Dr. Cormier by Dr. Ames at the time of di ctation. Reading Location: [facility]
--- NOTE | 2024-09-13 09:25 | ED.VIS.STROK ---
HPI History of Present Illness Chief Complaint: Neuro S/Sx Informant: patient and spouse/S.O. Narrative Narrative: Presents to the ED with spouse concerning stroke symptoms. Patient reports he woke up Thursday 4 days ago feeling weak on the right side per spouse had slurring of speech. No headache. She noted a right lip droop. He was walking however slowly. They called primary care office yesterday was told to go to ED. He decided come today. Per spouse speech is improving. He states he feels numb right face right arm and leg. He does have history of paroxysmal A-fib on Eliquis however admits he does not take his nighttime dose all the time. He had a stroke 2020 right arm weakness that was sudden came to the ED apparently did get tPA. He was found to be in A-fib last time. He does not feel symptoms if he goes in A-fib. Reported last week Thursday or Thursday has had numbness in the right hand, did not get evaluated the PCP office. He is a diabetic. He is on a statin. Per spouse speech speech is improving. He is right-hand dominant. Prior similar symptoms: Yes PFSH [facility] Medical History Tachyarrhythmia Paroxysmal supraventricular tachycardia Paroxysmal atrial fibrillation Elevated coronary artery calcium score History of CVA (cerebrovascular accident) (07/03/20) Premature atrial contraction First degree AV block Premature ventricular contraction Cancer Diabetes GERD (gastroesophageal reflux disease) CPAP (continuous positive airway pressure) dependence Sleep apnea Home Medications ?Medication ?Instructions ?Recorded ?Last Taken ?Type empagliflozin 25 mg tablet 25 mg PO DAILY 07/01/20 Unknown History (Jardiance) finasteride 5 mg tablet 5 mg PO DINNER 07/01/20 Unknown History insulin glargine 100 unit/mL (3 15 unit subcut BREAKFAST diabetes 07/01/20 Unknown History mL) subcutaneous pen (Lantus Solostar U-100 Insulin) sitagliptin phosphate 50 50 - 1,000 tab PO DAILY 07/01/20 Unknown History mg-metformin 1,000 mg tablet (Janumet) tamsulosin 0.4 mg capsule 0.4 mg PO DINNER 07/01/20 Unknown History aspirin 81 mg chewable tablet 81 mg PO DAILY CVA 30 days #30 tabs 07/03/20 Unknown Rx atorvastatin 40 mg tablet 40 mg PO QHS cholesterol 30 days 07/03/20 Unknown Rx #30 tabs apixaban 5 mg tablet (Eliquis) 5 mg PO BID blood 11/08/20 09/13/24 07:00 History famotidine 20 mg tablet 20 mg PO DAILY PRN stomach 09/13/24 Unknown History insulin aspart U-100 100 unit/mL 10 unit subcut DAILY diabetes 09/13/24 Unknown History (3 mL) subcutaneous pen (Novolog FlexPen U-100 Insulin aspart) Allergy/AdvReac Type Severity Reaction Status Date / Time No Known Allergies Allergy Verified 11/08/20 08:10 Family History Other CVA (cerebral vascular accident) Surgical History H/O: knee surgery History of appendectomy Social History adopted: No household members: spouse housing: house number of children: 3 current occupational status: retired pets and animals: Yes leisure activities: exercise, games, hunting and fishing history of recent travel: No sexually active: Yes Smoking Status: Former smoker diet: low carbohydrate well-balanced diet: daily or most days caffeine: Yes eating out: 1-3 times/week during the past year weight has: remained stable what type of physical activity do you participate in: walking ROS ROS ED Constitutional Constitutional ED: Denies chills, fever(s) or sweats ENT ENT ED: Denies sore throat Cardiovascular Cardiovascular: Denies chest pain, leg edema, palpitations or racing heartbeat Respiratory/Chest Respiratory/Chest: Denies cough, dyspnea or dyspnea on exertion Gastrointestinal Gastrointestinal: Denies abdominal pain, diarrhea, nausea or vomiting Genitourinary Genitourinary ED: Denies dysuria, hematuria or urinary frequency Musculoskeletal Musculoskeletal: Denies back pain, extremity pain or neck pain Integumentary Denies rash or wounds Neurologic Neurologic: Reports paresthesias, weakness and other Details: Changes in speech ; Denies headache(s) EXAM Physical Exam Const Vital Signs: 09/13/24 08:59 09/13/24 09:18 09/13/24 09:30 Temperature 97.4 F L Temperature Source Temporal Pulse Rate 81 67 Respiratory Rate 20 H 16 Blood Pressure 113/87 H 126/74 H 126/74 H Blood Pressure Mean 95 91 89 Pulse Ox 93 93 Oxygen Delivery Method Room Air Room Air 09/13/24 09:31 09/13/24 09:45 09/13/24 10:00 Temperature Temperature Source Pulse Rate 65 Respiratory Rate 15 Blood Pressure 122/71 H 127/77 H Blood Pressure Mean 87 92 Pulse Ox 90 Oxygen Delivery Method Room Air 09/13/24 11:04 09/13/24 12:07 09/13/24 12:14 Temperature 97.6 F L Temperature Source Pulse Rate 80 59 L Respiratory Rate 18 18 Blood Pressure 136/79 H 136/79 H 117/70 Blood Pressure Mean 98 98 85 Pulse Ox 99 99 Oxygen Delivery Method Positive well nourished and well developed General Appearance ED: well developed and NAD HEENT Reports moist mucous membranes normocephalic and atraumatic Eyes General Eye ED: Yes normal appearance of both eyes Neck full ROM Chest Wall Chest: Negative for tenderness Resp normal respiratory effort and normal air movement Effort and Inspection: symmetric chest movement; Negative for respiratory distress Cardio regular rate, regular rhythm and no murmurs Peripheral Pulses: pulses 2+ throughout GI normal to inspection, nondistended, normoactive bowel sounds and non-tender Palpation: Negative for guarding or rebound tenderness present Extremity normal to inspection General Extremety ED: Negative for edema or tenderness General Extremity: Negative for edema Neuro oriented x3 Neuro Narrative: NIH of 5 slight left lip droop, drift of right arm and leg, slight dysarthria, paresthesia right leg right hand and right mandibular region. 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 Sensorium / Orientation: awake and alert Skin no rashes or lesions noted and no wounds MDM MDM MDM Narrative Medical decision making narrative: Interventions / MDM: Differential diagnosis: CVA, right side weakness, paresthesias, carotid disease Diagnosis considered but do not suspect: Intracranial hemorrhage however CT negative. My EKG interpretation: Sinus rate of 64, no ST or T wave changes first-degree AV block. Imaging independently reviewed and interpreted by myself: CT angiogram head and neck: Discussion with radiologist severe stenosis left ICA, left vertebral dominant, right vertebral terminates into the PICA. External documents reviewed: Records from 2020 stroke event receiving tPA, MRI study noting 2 areas of infarct left postcentral gyrus. Subsequent event monitor for 30 days had findings of paroxysmal atrial fibrillation. Test considered but not ordered:N/A ED course: Patient history exam concerns for stroke event occurring 4 days ago. Speech is improving. I ambulate the patient slight limp on the right side no significant debility at this time. He admits to not taking his Eliquis all the time mostly at night and did miss doses last week before symptoms. EKG sinus rhythm. He is asymptomatic with any A-fib rhythms. And age of 5, not a candidate for TNK. Obtain CT angiograms head and neck, workup initiated. 1205: CT angiogram head and neck discussed with radiology severe stenosis left ICA of 99%. Report left vertebral dominant, right vertebral terminates into the PICA. Discussion compared to 2020 he had significant plaque at that time on axial view, however there was no reported percentage of narrowing then. Patient NIH is still 5 he took his Eliquis around 7 AM this morning. With stroke event and significant carotid narrowing I will speak with hospitalist for admission. I spoke with Dr. Willis for admission PCU. He did request that I speak with vascular surgery team once the severe stenosis in left side. I spoke with Camilla, discussed patient's history, they will see as a consult, discussed likely surgical intervention as an outpatient. Re-evaluation: stable Disposition discussed with patient/family/significant other: Patient and spouse Case discussed with consulting clinician: Radiologist, hospitalist This note was generated with [employer] dictation software. It may contain incorrect words, spelling, and punctuation that were not noted in checking the note before signing. Lab Data Attestation: I reviewed the patient's lab results. Labs: Laboratory Results - last 24 hr 09/13/24 09:28 WBC 7.7 RBC 4.87 Hgb 14.4 Hct 42.8 MCV 87.9 MCH 29.6 MCHC 33.6 RDW Std Deviation 42.8 RDW Coeff of Rosa Maria 13.2 Plt Count 194 MPV 9.6 Immature Gran % (Auto) 0.500 Neut % (Auto) 78.7 H Lymph % (Auto) 12.7 L [place] % (Auto) 6.1 Eos % (Auto) 1.2 Baso % (Auto) 0.8 Absolute Neuts (auto) 6.1 Absolute Lymphs (auto) 0.98 Nucleated RBC % 0 PT 15.1 H INR 1.2 APTT 29.7 Sodium 136 Potassium 4.2 Chloride 100 Carbon Dioxide 23.7 Anion Gap 12 BUN 14 Creatinine 0.94 Estim Creat Clear Calc 74.37 Est GFR (MDRD) Non-Af 83 BUN/Creatinine Ratio 14.8 Glucose 155 H Calcium 9.3 Troponin T High Sens 13 Radiography Diagnostic Testing: Clinical Impression(s) from Imaging Studies Head/Neck CTA 09/13/24 09:18 IMPRESSION: There is a 99% stenosis in the proximal left ICA. The left vertebral is dominant. The right vertebral terminates in the PICA. Critical results were discussed with Dr. Cormier by Dr. Ames at the time of dictation. Reading [facility] Discharge Plan Dx/Rx/DC Orders Clinical Impression: CVA (cerebral vascular accident), Right sided weakness, Left carotid stenosis, Left-sided carotid artery disease Disposition Disposition: Acute Care Hospital [facility] Discharge Date/Time: 09/13/24 12:49 NIHSS NIHSS 1a. Level of Consciousness: 0 - Alert; keenly responsive 1b. LOC Questions: 0 - Answers BOTH questions correctly 1c. LOC Commands: 0 - Performs BOTH tasks correctly 2. Best Gaze: 0 - Normal 3. Visual: 0 - No visual loss 4. Facial Palsy: 1 - Minor paralysis (flattened nasolabial fold, asymmetry on smiling) 5a. Left Arm: 0 - No drift; arm holds 90 (or 45) degrees for full 10 seconds 5b. Right Arm: 1 - Drift; arm drifts downward but doesn?t hit the bed 6a. Left Le - No drift; leg holds 30-degree position for full 5 seconds 6b. Right Le - Drift; leg falls by the end of 5-seconds, but does not hit bed 7. Limb Ataxia: 0 - Absent 8. Sensory: 1 - Gzic-ry-vanpaqxa sensory loss; 9. Best Language: 0 - No aphasia; normal 10. Dysarthria: 1 = [id number]-[id number] dysarthria; 11. Extinction and Inattention: 0 - No abnormality Total: 5 Stroke Questions Stroke Team Activated: No (Outside the window.) IV Thrombolytic Administered: No
[2024-09-13 09:52] LABS: Hematocrit 42.8 % (40-54); Hemoglobin 14.4 g/dL (13.0-16.5); Immature Granulocytes Count 0.040 X10^3/uL (0.0-0.0); Mean Corp Hgb Conc 33.6 g/dL (32-36); Mean Corpuscular Volume 87.9 fL (80-94); Mean Platelet Vol. 9.6 fl (6.2-12.0); NRBC Flagged by Analyzer 0 % (0-5); Platelet Count 194 K/mm3 (150-450); RBC Distribution Width CV 13.2 % (11.6-14.6); RBC Distribution Width SD 42.8 fl (35.1-43.9); Red Blood Count 4.87 M/mm3 (4.6-6.2); White Blood Count 7.7 K/mm3 (4.4-11.0)
[2024-09-13 10:00] LABS: Partial Thromboplast Time 29.7 Seconds (24.1-36.2); Prothrombin Time (Protime)PT. 15.1 SECONDS (11.7-14.9)
[2024-09-13 10:28] LABS: Anion Gap 12 (5-15); BUN 14 mg/dL (4-19); BUN/Creat Ratio 14.8 RATIO (10-20); Calcium,Total 9.3 mg/dL (7.6-11.0); Carbon Dioxide 23.7 mmol/L (21.0-32.0); Chloride 100 mmol/L (98-108); Estimated Creatinine Clearance 74.37 ml/min (50-250); Glucose 155 mg/dL (70-99); Potassium 4.2 mmol/L (3.3-5.1); Troponin T High Sensitivity 13 ng/L (<=22)
--- NOTE | 2024-09-13 12:36 | PCM.HP.STD ---
HPI - General General Date of Admission: 09/13/24 Date of Service: 09/13/24 Chief Complaint: Right-sided weakness HPI Narrative CHASITY MCKEON, is a 78 M who presents presents with right-sided weakness and facial droop. Per patient symptoms started 5 days prior to his admission. He did notice some subjective weakness as well as numbness. Patient's did notice patient having difficulty with feeding himself (patient is right-handed). Patient's felt patient was having a stroke called the PCPs office a day prior to his admission and was instructed to present to the emergency department patient has history of paroxysmal A-fib and and as per patient he has not been taking the medication as instructed. CT angio obtained in the ED demonstrated severe left ICA stenosis. Patient admitted to a monitored bed for subsequent management FOR[facility]LY [facility], [facility] Medical History Tachyarrhythmia Paroxysmal supraventricular tachycardia Paroxysmal atrial fibrillation Elevated coronary artery calcium score History of CVA (cerebrovascular accident) (07/03/20) Premature atrial contraction First degree AV block Premature ventricular contraction Cancer Diabetes GERD (gastroesophageal reflux disease) CPAP (continuous positive airway pressure) dependence Sleep apnea Home Medications ?Medication ?Instructions ?Recorded ?Last Taken ?Type empagliflozin 25 mg tablet 25 mg PO DAILY 07/01/20 Unknown History (Jardiance) finasteride 5 mg tablet 5 mg PO DINNER 07/01/20 Unknown History insulin glargine 100 unit/mL (3 10 unit subcut BREAKFAST 07/01/20 Unknown History mL) subcutaneous pen (Lantus Solostar U-100 Insulin) sitagliptin phosphate 50 50 - 1,000 tab PO DAILY 07/01/20 Unknown History mg-metformin 1,000 mg tablet (Janumet) tamsulosin 0.4 mg capsule 0.4 mg PO DINNER 07/01/20 Unknown History aspirin 81 mg chewable tablet 81 mg PO DAILY CVA 30 days #30 tabs 07/03/20 Unknown Rx atorvastatin 40 mg tablet 40 mg PO QHS 30 days #30 tabs 07/03/20 Unknown Rx famotidine 20 mg tablet 20 mg PO DAILY #30 tabs 07/03/20 Unknown Rx apixaban 5 mg tablet (Eliquis) 5 mg PO BID 11/08/20 Unknown History Allergy/AdvReac Type Severity Reaction Status Date / Time No Known Allergies Allergy Verified 11/08/20 08:10 Family History Other CVA (cerebral vascular accident) Surgical History H/O: knee surgery History of appendectomy Social History adopted: No household members: spouse housing: house number of children: 3 current occupational status: retired pets and animals: Yes leisure activities: exercise, games, hunting and fishing history of recent travel: No sexually active: Yes Smoking Status: Never smoker diet: low carbohydrate well-balanced diet: daily or most days caffeine: Yes eating out: 1-3 times/week during the past year weight has: remained stable what type of physical activity do you participate in: walking ROS ROS Narrative GENERAL: denies fever, chills, night sweats, weight loss, anorexia HEENT: denies headache, sinus congestion, or drainage, dysphagia RESPIRATORY: denies cough, sputum production, shortness of breath, dyspnea on exertion CARDIAC: denies chest pain, palpitations, orthopnea, PND GASTROINTESTINAL: denies abdominal pain, nausea, vomiting, melena, GENITOURINARY: denies dysuria, urgency, frequency, heamaturia EXTREMITY: denies swelling MUSCULOSKELETAL: denies current joint pain or tenderness NEUROLOGIC: Right-sided focal numbness subjective HEMATOLOGIC: denies easy bruising and/or hemorrhage INTEGUMENT: denies rashes PSYCHIATRIC: denies suicidal or homicidal ideation Vital Signs Vital Signs Vital Signs: 09/13/24 08:59 09/13/24 09:18 09/13/24 09:30 Temperature 97.4 F L Temperature Source Temporal Pulse Rate 81 67 Respiratory Rate 20 H 16 Blood Pressure 113/87 H 126/74 H 126/74 H Blood Pressure Mean 95 91 89 Pulse Ox 93 93 Oxygen Delivery Method Room Air Room Air 09/13/24 09:31 09/13/24 09:45 09/13/24 10:00 Temperature Temperature Source Pulse Rate 65 Respiratory Rate 15 Blood Pressure 122/71 H 127/77 H Blood Pressure Mean 87 92 Pulse Ox 90 Oxygen Delivery Method Room Air 09/13/24 11:04 09/13/24 12:07 09/13/24 12:14 Temperature 97.6 F L Temperature Source Pulse Rate 80 59 L Respiratory Rate 18 18 Blood Pressure 136/79 H 136/79 H 117/70 Blood Pressure Mean 98 98 85 Pulse Ox 99 99 Oxygen Delivery Method Weight Weight: 96.9 kg Body Mass Index (BMI) 31.5 Physical Exam Narrative GENERAL: cooperative HEENT: Atraumatic; normocephalic EYES; Anicteric, Normal Conjunctiva NECK; supple, normal thyroid, RESPIRATORY: Diminished to auscultation CARDIOVASCULAR: Regular S1 S2, GI: soft, normoactive bowel sounds, : No Renal angle tenderness; EXTREMITIES: No edema, no clubbing, MUSCULOSKELETAL: no muscle wasting NEURO: Awake; muscle strength in right upper extremity 4/5, 5/5 on the left SKIN: No Rash PSYCH; Flat affect Results Lab / Micro Data 09/13/24 09:28 09/13/24 09:28 Labs: Laboratory Results - last 24 hr 09/13/24 09:28: WBC 7.7, RBC 4.87, Hgb 14.4, Hct 42.8, MCV 87.9, MCH 29.6, MCHC 33.6, RDW Std Deviation 42.8, RDW Coeff of Rosa Maria 13.2, Plt Count 194, MPV 9.6, Immature Gran % (Auto) 0.500, Neut % (Auto) 78.7 H, Lymph % (Auto) 12.7 L, [place] % (Auto) 6.1, Eos % (Auto) 1.2, Baso % (Auto) 0.8, Absolute Neuts (auto) 6.1, Absolute Lymphs (auto) 0.98, Nucleated RBC % 0, PT 15.1 H, INR 1.2, APTT 29.7, Sodium 136, Potassium 4.2, Chloride 100, Carbon Dioxide 23.7, Anion Gap 12, BUN 14, Creatinine 0.94, Estim Creat Clear Calc 74.37, Est GFR (MDRD) Non-Af 83, BUN/Creatinine Ratio 14.8, Glucose 155 H, Calcium 9.3, Troponin T High Sens 13 Imaging Radiology Impression Head/Neck CTA 09/13/24 09:18 IMPRESSION: There is a 99% stenosis in the proximal left ICA. The left vertebral is dominant. The right vertebral terminates in the PICA. Critical results were discussed with Dr. Cormier by Dr. Ames at the time of dictation. Reading Location: [facility] Assessment & Plan Assessment/Plan (1) CVA (cerebral vascular accident): (2) Left-sided carotid artery disease: (3) Paroxysmal atrial fibrillation: PLAN: Plan Patient is a 78-year-old gentleman presented with a 5-day history of right-sided weakness and numbness 1. Acute CVA ? Possibly thromboembolic from patient's underlying A-fib. Patient presented 5 days after onset of his symptoms therefore not a candidate for TNK. Patient has been admitted to a monitored bed requested for PT OT/speech therapy eval. Patient is already on aspirin and statin therapy did continue. Consult placed to [facility]. Ordered lipid panel, 2D echo and MRI as part of his evaluation 2. Paroxysmal A-fib ? Rate controlled patient is on systemic anticoagulation with apixaban. Patient educated on the need to be compliant with therapy to prevent recurrence of above 3. Severe left ICA stenosis?99% ? Consult placed to Dr. Figueroa 4. Dyslipidemia ?Patient is on statin therapy, continued at home dose 5. Hypertension ? Blood pressure controlled, home medications continued with dose adjustment as needed 6. BPH with lower urinary obstructive symptoms - Patient treated with tamsulosin 7. Diabetes mellitus type II -patient's oral hypoglycemics held. Placed on long acting insulin, Accu-Cheks a.c. and at bedtime and covered with sliding scale insulin 8. Class I obesity with BMI of 32 ? Complicating care weight loss advised 9. GERD ? Patient was on PPI did continue 10. DVT prophylaxis ? Patient already on apixaban Time spent in the patient's overall evaluation,decision-making process, review of diagnostic data, adjustment of management, discussion with other providers, nursing nursing and ancillary staff involved in patient's care documentation, 75Minutes Advance planning; did discuss with the patient and family (patient's ) regarding advanced directives as well as CODE STATUS. Did explain the various scenarios involved ( FULL CODE, DNR CCA, DNR CCA with no intubation, and DNR CC and what each meant) patient elected to to remain full code with CPR intubation if needed. Order was placed. Time spent on discussion 18 minutes. Charges/Coding Multi Select Codes Visit Charges Visit Charges: 95264 Init Hosp L3 Hospitalists' Procedures Procedures: 88988 Advncd Care Plan 30 Min
--- NOTE | 2024-09-13 12:59 | MRI_ITS ---
PROCEDURE: BRAIN WITHOUT CONTRAST 09/13/2024 REASON FOR EXAM: CVA TECHNIQUE: BRAIN WITHOUT CONTRAST Multiplanar and multisequence images were obtained. COMPARISON: MR brain without contrast, 07/03/2020. CTA head and neck with contrast, same day. FINDINGS: There are multiple foci of restricted diffusion noted in the left cerebral hemisphere in the frontal, parietal and occipital lobes, predominantly in the MCA distribution but also in the DIRECTOR OF SOCIAL SERVICES distribution. The appearance is consistent with an embolic shower. There is patchy periventricular white matter signal abnormality in both cerebral hemispheres consistent with chronic ischemic white matter disease. There is mild diffuse cerebral atrophy with concomitant ventriculomegaly. There is a normal sulcal pattern and gyral configuration. There is no evidence of acute intracranial hemorrhage. The staples-white differentiation is well preserved. The basilar cisterns are normal. There are normal flow voids demonstrated in the recognized intracranial vessels. The cerebellum and brainstem are unremarkable. The cerebellar pontine angles are normal. The craniovertebral junction is normal. The sella and suprasellar regions are normal. Status post bilateral intra-ocular lens implants. The orbits and retro-orbital regions are otherwise unremarkable. The nasal septum is midline. The paranasal sinuses are clear. The mastoid air cells are clear. There is normal bone marrow signal in the skull base and calvarium. MRI/Brain without Contrast IMPRESSION: 1. Findings consistent with an embolic shower from the left ICA. The involvem ent of the occipital lobe is unusual. 2. Cerebral atrophy. Note: The findings were called to the charge nurse in the PCU at [facility] on 09/13/2024 at 3:50 p.m. Reading Location: [place] [id number]
--- NOTE | 2024-09-13 12:59 | ECHOCS_ITS ---
Reason For Study Reason For Study: TIA/CVA Procedure This was a 2D Doppler, Color Flow transthoracic echocardiogram. Contrast injection was performed. Exam performed portable in patient room. Left Ventricle Normal LV size. The estimated ejection fraction is 60-65 %. Normal diastololic function. No regional wall motion abnormalities noted. Right Ventricle Normal RV size. Normal systolic function. Atria The left and right atria are normal. Mitral Valve Normal mitral valve. Mild (1+) mitral valve insufficiency. Tricuspid Valve Normal tricuspid valve. Mild (1+) tricuspid valve insufficiency. Pulmonary artery systolic pressure is 25 mmHg. Aortic Valve Trisinus/trileaflet aortic valve. Mild focal aortic valve calcification. There is no aortic stenosis. Mild (1+) aortic valve insufficiency. Pulmonic Valve Normal pulmonic valve. Great Vessels Normal sized aortic root. Pericardium/Pleural No pericardial effusion. Medication Diluted definity 1.5ml given slow IV push to enhance endocardial definition. MMode/2D Measurements & Calculations LVIDd: 4.5 cm IVSd: 1.0 cm LVOT diam: 2.1 cm LVIDs: 2.7 cm LVPWd: 0.99 cm RVDd: 3.8 cm FS: 40.2 % LVOT area: 3.5 cm2 asc Aorta Diam: 3.7 cm LAV(MOD-bp): 28.5 ml LVAd ap4: 36.3 cm2 LAV(MOD-bp) Indexed: 13.5 ml/m2 LVLd ap4: 8.2 cm LAV(MOD-sp2): 33.5 ml EDV(MOD-sp4): 129.4 ml LAV(MOD-sp4): 24.2 ml EDV(sp4-el): 136.8 ml LVAs ap4: 19.3 cm2 LVLs ap4: 6.9 cm ESV(MOD-sp4): 44.7 ml ESV(sp4-el): 45.9 ml EF(MOD-sp4): 65.4 % EF(sp4-el): 66.4 % LVAd ap2: 36.0 cm2 SV(MOD-sp4): 84.6 ml SV(MOD-sp2): 75.3 ml LVLd ap2: 8.7 cm SI(MOD-sp4): 40.0 ml/m2 SI(MOD-sp2): 35.6 ml/m2 EDV(MOD-sp2): 119.8 ml EDV(sp2-el): 125.8 ml LVAs ap2: 19.7 cm2 LVLs ap2: 7.2 cm ESV(MOD-sp2): 44.5 ml ESV(sp2-el): 46.2 ml EF(MOD-sp2): 62.8 % SV(sp4-el): 90.8 ml Ao sinus diam: 3.[address] Junction: 2.9 cm LA dimension(2D): 2.9 cm LA A4 area: 11.8 cm2 RA A4 area: 7.6 cm2 TAPSE: 1.9 cm Time Measurements MV dec time: 0.20 sec Doppler Measurements & Calculations MV E max gurwinder: 60.8 cm/sec Lat Peak E' Gurwinder: 9.7 cm/sec Med Peak E' Gurwinder: 6.3 cm/sec MV A max gurwinder: 76.2 cm/sec E/E' lat: 6.3 E/E' med: 9.7 MV E/A: 0.80 MV dec slope: 308.7 cm/sec2 Ao V2 max: 117.6 cm/sec AI max gurwinder: 382.4 cm/sec Ao max P.5 mmHg AI max P.5 mmHg Ao V2 mean: 85.1 cm/sec AI dec slope: 151.9 cm/sec2 Ao mean P.1 mmHg AI P1/2t: 737.2 msec Ao V2 VTI: 22.4 cm AV (velocity ratio): 0.89 RANJANA(I,D): 3.1 cm2 RANJANA(V,D): 2.7 cm2 LV V1 max: 89.3 cm/sec SV(LVOT): 69.8 ml PA V2 max: 64.9 cm/sec LV V1 max P.2 mmHg LV V1 mean P.7 mmHg LV V1 mean: 59.9 cm/sec LV V1 VTI: 20.0 cm TR max gurwinder: 233.0 cm/sec TR max P.7 mmHg ECHO/Echo Complete W/ Contrast Interpretation Summary The estimated ejection fraction is 60-65 %. Mild (1+) mitral valve insufficiency. Mild (1+) tricuspid valve insufficiency. Mild (1+) aortic valve insufficiency. Mild focal aortic valve calcification. Contrast injection was performed. Ordering Physician: Dennis Willis Performed By: Pauly Estes RDCS and Student
[2024-09-13] MEDS: 0.9% Normal Saline (1000mL) 1,000 ML 100 ML IV (16:26)
[2024-09-13] MEDS: 0.9% Saline Lock 10 ML Syringe IV (16:32)
--- NOTE | 2024-09-13 16:49 | CDU_ITS ---
Reason For Study Reason For Study: Left ICA stenosis Rt. Velocities/BP Lt. Velocities/BP Prox CCA 82.5/19.2 cm/sec. Prox CCA 90.5/16.8 cm/sec. Mid CCA 72.1/18.2 cm/sec. Mid CCA 67.4/10.2 cm/sec. Dist CCA 57.9/14.5 cm/sec. Dist CCA 64.1/10.2 cm/sec. Prox ICA 41.9/8.8 cm/sec. Prox ICA 35.2 cm/sec. Mid ICA 64.5/23 cm/sec. Mid ICA 499.8/189.9 cm/sec. Dist ICA 57.4/24.8 cm/sec. Dist ICA 108.2/2.9 cm/sec. Rt. ICA/CCA = 0.89. Lt. ICA/CCA = 7.42. Prox ECA 125.6/10.2 cm/sec. Prox ECA 109.7/12.6 cm/sec. Rt. Vert. 25.8/4.7 cm/sec. Lt. Vert. 45.8/13.9 cm/sec. Right Extracranial There is intimal thickening but no significant atherosclerotic plaque noted in the right common carotid artery. There is heterogeneous, irregular atherosclerotic plaque noted in the right internal carotid artery. The atherosclerotic plaque causes acoustic shadowing. There is heterogeneous, irregular atherosclerotic plaque noted in the right external carotid artery. Antegrade flow is noted in the right vertebral artery. Left Extracranial There is heterogeneous, irregular atherosclerotic plaque noted in the left common carotid artery. There is heterogeneous, irregular atherosclerotic plaque noted in the left internal carotid artery. The atherosclerotic plaque causes acoustic shadowing. There is heterogeneous, irregular atherosclerotic plaque noted in the left external carotid artery. Procedure Carotid Duplex 54865. This is a Carotid Duplex examination using B-mode, color flow and specral Doppler. Preliminary report given to Camilla WALL. Exam performed portable in patient room. VL/Carotid Duplex Ultrasound Interpretation Summary Mild (<50%) stenosis right extracranial internal carotid. Severe (>70%) stenosis left extracranial internal carotid. Patent and antegrade vertebrals bilaterally. Ordering Physician: Camilla Brar Referring Physician: Betsey Cortez Performed By: Qi Oneil RVT
--- NOTE | 2024-09-13 17:16 | EX.PCM.CON.S ---
Assessment & Plan Assessment/Plan (1) Left carotid stenosis: (2) CVA (cerebral vascular accident): PLAN: Plan Reviewed CTA images; severe L ICA stenosis which is at threshold for surgical intervention. Recommend L carotid endarterectomy on an outpatient basis in 2-4 weeks from CVA onset. Patient is agreeable to proceed with intervention, will arrange for outpatient f/u and scheduling. Continue Eliquis 5mg BID and ASA 81mg daily. Would increase to atorvastatin 80mg daily if tolerated for medical optimization. HPI Consult Data Date of Consult: 09/14/24 HPI Narrative HPI Narrative: CHASITY MCKEON, is a 78 M who presented to the [facility] ER 09/13/24 with a 4 day history of right-sided weakness/numbness, slurred speech, and slight facial droop. He was admitted for further workup. Given his duration of symptoms tPA not administered. He had Head/Neck CTA demonstrating severe L carotid disease for which we are consulted. He had Brain MRI which showed multiple infarcts in the L frontal, parietal, and occipital lobes consistent with embolic shower. He was on Eliquis (though not taking consistently by report), ASA, and statin at home. He is chronically anticoagulated for paroxysmal Afib. On my exam, he is eating dinner. He reports that he is feeling a bit better than when he arrived, feels he is talking more easily and that the numbness/paresthesias in his R side are improving though he still has weakness. He answers all questions appropriately and I do not appreciate any significant slurring of speech. He does have a history of prior stroke in 2020, he had R upper extremity weakness/numbness/paresthesias and was treated with tPA with resolution of his symptoms at that time. Holter monitor placed following that CVA is what identified his paroxysmal Afib. He had Head/Neck CTA at that time as well which demonstrated moderate L ICA stenosis. He denies any history of prior carotid intervention, radiation to the Head/Neck, prior cervical spine surgery. [facility] Medical History Tachyarrhythmia Paroxysmal supraventricular tachycardia Paroxysmal atrial fibrillation Elevated coronary artery calcium score History of CVA (cerebrovascular accident) (07/03/20) Premature atrial contraction First degree AV block Premature ventricular contraction Cancer Diabetes GERD (gastroesophageal reflux disease) CPAP (continuous positive airway pressure) dependence Sleep apnea Home Medications ?Medication ?Instructions ?Recorded ?Last Taken ?Type empagliflozin 25 mg tablet 25 mg PO DAILY 07/01/20 Unknown History (Jardiance) finasteride 5 mg tablet 5 mg PO DINNER 07/01/20 Unknown History insulin glargine 100 unit/mL (3 15 unit subcut BREAKFAST diabetes 07/01/20 Unknown History mL) subcutaneous pen (Lantus Solostar U-100 Insulin) sitagliptin phosphate 50 50 - 1,000 tab PO DAILY 07/01/20 Unknown History mg-metformin 1,000 mg tablet (Janumet) tamsulosin 0.4 mg capsule 0.4 mg PO DINNER 07/01/20 Unknown History aspirin 81 mg chewable tablet 81 mg PO DAILY CVA 30 days #30 tabs 07/03/20 Unknown Rx atorvastatin 40 mg tablet 40 mg PO QHS cholesterol 30 days 07/03/20 Unknown Rx #30 tabs apixaban 5 mg tablet (Eliquis) 5 mg PO BID blood 11/08/20 09/13/24 07:00 History famotidine 20 mg tablet 20 mg PO DAILY PRN stomach 09/13/24 Unknown History insulin aspart U-100 100 unit/mL 10 unit subcut DAILY diabetes 09/13/24 Unknown History (3 mL) subcutaneous pen (Novolog FlexPen U-100 Insulin aspart) Allergy/AdvReac Type Severity Reaction Status Date / Time No Known Allergies Allergy Verified 11/08/20 08:10 Family History Other CVA (cerebral vascular accident) Surgical History H/O: knee surgery History of appendectomy Social History adopted: No household members: spouse housing: house number of children: 3 current occupational status: retired pets and animals: Yes leisure activities: exercise, games, hunting and fishing history of recent travel: No sexually active: Yes Smoking Status: Former smoker diet: low carbohydrate well-balanced diet: daily or most days caffeine: Yes eating out: 1-3 times/week during the past year weight has: remained stable what type of physical activity do you participate in: walking Physical Exam Const alert, oriented x3 and no apparent distress General Appearance: cooperative HEENT normocephalic, head/scalp atraumatic and external nose normal Eyes EOMs intact bilaterally General Eye: normal appearance of both eyes Neck full ROM General: normal visual inspection Resp normal respiratory effort and no retractions Effort and Inspection: able to speak in complete sentences Cardio Rate: regular rate Rhythm: regular rhythm Skin no rashes or lesions noted Neuro Neuro Narrative: Mild RUE and RLE weakness, very slight facial droop Psych mental status grossly normal Appearance: grossly normal Lab / Micro Data 09/14/24 05:16 09/14/24 05:16 Labs: Laboratory Results - last 24 hr 09/13/24 09:28: WBC 7.7, RBC 4.87, Hgb 14.4, Hct 42.8, MCV 87.9, MCH 29.6, MCHC 33.6, RDW Std Deviation 42.8, RDW Coeff of Rosa Maria 13.2, Plt Count 194, MPV 9.6, Immature Gran % (Auto) 0.500, Neut % (Auto) 78.7 H, Lymph % (Auto) 12.7 L, [place] % (Auto) 6.1, Eos % (Auto) 1.2, Baso % (Auto) 0.8, Absolute Neuts (auto) 6.1, Absolute Lymphs (auto) 0.98, Nucleated RBC % 0, PT 15.1 H, INR 1.2, APTT 29.7, Sodium 136, Potassium 4.2, Chloride 100, Carbon Dioxide 23.7, Anion Gap 12, BUN 14, Creatinine 0.94, Estim Creat Clear Calc 74.37, Est GFR (MDRD) Non-Af 83, BUN/Creatinine Ratio 14.8, Glucose 155 H, Calcium 9.3, Troponin T High Sens 13 09/13/24 16:28: POC Glucose 148 H Imaging Radiology Impression Head/Neck CTA 09/13/24 09:18 IMPRESSION: There is a 99% stenosis in the proximal left ICA. The left vertebral is dominant. The right vertebral terminates in the PICA. Critical results were discussed with Dr. Cormier by Dr. Ames at the time of dictation. Reading Location: [facility] Brain MRI 09/13/24 12:59 IMPRESSION: 1. Findings consistent with an embolic shower from the left ICA. The involvement of the occipital lobe is unusual. 2. Cerebral atrophy. Note: The findings were called to the charge nurse in the PCU at [facility] on 09/13/2024 at 3:50 p.m. Reading Location: [place] [address] Charges/Coding Visit Charges Inpatient E&M: 65265 Init Hosp L2
[2024-09-13] MEDS: APIXABAN 5 MG TABLET PO (22:25)
[2024-09-14] VITALS (8 sets, daily range): BP systolic 113–138; BP diastolic 67–83; PULSE 39–61; RESP 14–18; TEMP 36.6–37; O2SAT 92–97; BMI 30.3
[2024-09-14] MEDS: 0.9% Normal Saline (1000mL) 1,000 ML 100 ML IV (03:11)
[2024-09-14 05:51] LABS: Hematocrit 41.0 % (40-54); Hemoglobin 13.8 g/dL (13.0-16.5); Immature Granulocytes Count 0.030 X10^3/uL (0.0-0.0); Mean Corp Hgb Conc 33.7 g/dL (32-36); Mean Corpuscular Volume 87.4 fL (80-94); Mean Platelet Vol. 9.6 fl (6.2-12.0); NRBC Flagged by Analyzer 0 % (0-5); Platelet Count 189 K/mm3 (150-450); RBC Distribution Width CV 13.3 % (11.6-14.6); RBC Distribution Width SD 42.6 fl (35.1-43.9); Red Blood Count 4.69 M/mm3 (4.6-6.2); White Blood Count 6.2 K/mm3 (4.4-11.0)
[2024-09-14 06:26] LABS: Anion Gap 10 (5-15); BUN 16 mg/dL (4-19); BUN/Creat Ratio 18.0 RATIO (10-20); Calcium,Total 9.1 mg/dL (7.6-11.0); Carbon Dioxide 23.3 mmol/L (21.0-32.0); Chloride 104 mmol/L (98-108); Cholesterol 218 mg/dL (<=200); Estimated Creatinine Clearance 81.35 ml/min (50-250); Glucose 129 mg/dL (70-99); Low Density Lipoprotein Calc. 149 mg/dL; Magnesium 2.2 mg/dL (1.5-2.2); Potassium 4.2 mmol/L (3.3-5.1); Triglycerides 132 mg/dL; Very Low Density Lipoprotein 26 mg/dL (5-40); cholesterol:hdl ratio screen 5.06
--- NOTE | 2024-09-14 08:44 | PCM.PN.HOSP ---
Reason for Visit Chief Complaint: Right-sided weakness Subjective Subjective Patient admitted with right-sided weakness. MRI obtained did show Findings consistent with an embolic shower from the left ICA. Objective Data Objective Data Vital Signs: Vital Signs Temp Pulse Resp BP Pulse Ox O2 Del Method 98.2 F 61 16 119/76 97 Room Air 09/14/24 06:00 09/14/24 06:00 09/14/24 06:00 09/14/24 06:00 09/14/24 08:08 09/14/24 08:08 Oxygen Delivery Method Room Air Weight: 95.963 kg Body Mass Index (BMI) 30.3 Intake & Output: Intake and Output for Last 24 Hours 09/12/24 09/13/24 09/14/24 23:59 23:59 23:59 Intake Total 600 / 600 1000 / 1000 Balance 600 / 600 1000 / 1000 Lab / Micro Data 09/14/24 05:16 09/14/24 05:16 Labs: Laboratory Results - last 24 hr 09/13/24 09:28: WBC 7.7, RBC 4.87, Hgb 14.4, Hct 42.8, MCV 87.9, MCH 29.6, MCHC 33.6, RDW Std Deviation 42.8, RDW Coeff of Rosa Maria 13.2, Plt Count 194, MPV 9.6, Immature Gran % (Auto) 0.500, Neut % (Auto) 78.7 H, Lymph % (Auto) 12.7 L, [place] % (Auto) 6.1, Eos % (Auto) 1.2, Baso % (Auto) 0.8, Absolute Neuts (auto) 6.1, Absolute Lymphs (auto) 0.98, Nucleated RBC % 0, PT 15.1 H, INR 1.2, APTT 29.7, Sodium 136, Potassium 4.2, Chloride 100, Carbon Dioxide 23.7, Anion Gap 12, BUN 14, Creatinine 0.94, Estim Creat Clear Calc 74.37, Est GFR (MDRD) Non-Af 83, BUN/Creatinine Ratio 14.8, Glucose 155 H, Calcium 9.3, Troponin T High Sens 13 09/13/24 16:28: POC Glucose 148 H 09/13/24 22:25: POC Glucose 107 H 09/14/24 05:16: WBC 6.2, RBC 4.69, Hgb 13.8, Hct 41.0, MCV 87.4, MCH 29.4, MCHC 33.7, RDW Std Deviation 42.6, RDW Coeff of Rosa Maria 13.3, Plt Count 189, MPV 9.6, Immature Gran % (Auto) 0.500, Neut % (Auto) 67.0, Lymph % (Auto) 20.6, [place] % (Auto) 8.6, Eos % (Auto) 2.3, Baso % (Auto) 1.0, Absolute Neuts (auto) 4.1, Absolute Lymphs (auto) 1.27, Nucleated RBC % 0, Sodium 138, Potassium 4.2, Chloride 104, Carbon Dioxide 23.3, Anion Gap 10, BUN 16, Creatinine 0.87, Estim Creat Clear Calc 81.35, Est GFR (MDRD) Non-Af 88, BUN/Creatinine Ratio 18.0, Glucose 129 H, Hemoglobin A1c 7.6 H, Calcium 9.1, Phosphorus 3.4, Magnesium 2.2, Triglycerides 132, Cholesterol 218 H, LDL Cholesterol, Calc 149, VLDL Cholesterol 26, HDL Cholesterol 43, Cholesterol/HDL Ratio 5.06, TSH 1.910 Radiography Diagnostic Testing: Radiology Impression Head/Neck CTA 09/13/24 09:18 IMPRESSION: There is a 99% stenosis in the proximal left ICA. The left vertebral is dominant. The right vertebral terminates in the PICA. Critical results were discussed with Dr. Cormier by Dr. Ames at the time of dictation. Reading Location: [facility] Brain MRI 09/13/24 12:59 IMPRESSION: 1. Findings consistent with an embolic shower from the left ICA. The involvement of the occipital lobe is unusual. 2. Cerebral atrophy. Note: The findings were called to the charge nurse in the PCU at [facility] on 09/13/2024 at 3:50 p.m. Reading Location: [place] [address] Physical Exam Narrative GENERAL: cooperative HEENT: Atraumatic; normocephalic EYES; Anicteric, Normal Conjunctiva NECK; supple, normal thyroid, RESPIRATORY: Diminished to auscultation CARDIOVASCULAR: Regular S1 S2, GI: soft, normoactive bowel sounds, : No Renal angle tenderness; EXTREMITIES: No edema, no clubbing, MUSCULOSKELETAL: no muscle wasting NEURO: Awake; muscle strength in right upper extremity 4/5, 5/5 on the left SKIN: No Rash PSYCH; Flat affect Assessment & Plan Assessment/Plan (1) CVA (cerebral vascular accident): (2) Left-sided carotid artery disease: (3) Paroxysmal atrial fibrillation: PLAN: Plan Patient is a 78-year-old gentleman presented with a 5-day history of right-sided weakness and numbness 1. Acute CVA ? Possibly thromboembolic from patient's underlying A-fib. Patient presented 5 days after onset of his symptoms therefore not a candidate for TNK. Patient has been admitted to a monitored bed requested for PT OT/speech therapy eval. Patient is already on aspirin and statin therapy did continue. Consult [facility] to [facility]. Ordered lipid panel, 2D echo and MRI as part of his evaluation 09/14/2024;MRI obtained did show Findings consistent with an embolic shower from the left ICA. 2. Paroxysmal A-fib ? Rate controlled patient is on systemic anticoagulation with apixaban. Patient educated on the need to be compliant with therapy to prevent recurrence of above 3. Severe left ICA stenosis?99% ? Consult placed to Dr. Figueroa ? 09/14/2024; patient was seen in consultation by Dr. Cooper Lockhart with vascular surgery recommended continue with apixaban 5 mg twice daily aspirin and increasing atorvastatin to 80 mg daily with plans for patient to follow-up as outpatient for left carotid endarterectomy 4. Dyslipidemia ?Patient is on statin therapy, continued at home dose 5. Hypertension ? Blood pressure controlled, home medications continued with dose adjustment as needed 6. BPH with lower urinary obstructive symptoms - Patient treated with tamsulosin 7. Diabetes mellitus type II -patient's oral hypoglycemics held. Placed on long acting insulin, Accu-Cheks a.c. and at bedtime and covered with sliding scale insulin 8. Class I obesity with BMI of 32 ? Complicating care weight loss advised 9. GERD ? Patient was on PPI did continue 10. DVT prophylaxis ? Patient already on apixaban Time spent in the patient's overall evaluation,decision-making process, review of diagnostic data, adjustment of management, discussion with other providers, nursing nursing and ancillary staff involved in patient's care documentation, 38 Minutes Charges/Coding Visit Charges Inpatient E&M: 64821 Subs Hosp L2 NIHSS NIHSS Nursing Documentation NIHSS Nursing Documentation: NIHSS: Ischemic Stroke/TIA Start: 09/13/24 12:59 Text: For PCU Patients: NIH and Neuro Check every 4 Status: Active hours, PRN and with change in RN caregiver. Freq: [id number] Protocol: Activity Type Activity Date Activity User E-sign Co-sign Detail Recorded Client Recorded Date Recorded By Document 09/14/24 06:00 MLK desktop 09/14/24 06:26 MLK 09/14/24 06:00 NIH Stroke Scale [NIHSS] A score of 0 is normal or asymptomatic . Total possible score is 42. Inpatient: RN or Physician to activate a stroke alert for onset of new stroke symptoms or with NIHSS increase >/= 3 points. Following change in neurological status, NIHSS will be performed per physician order or more frequently PRN. -1a. Level of Consciousness 0 - Alert; keenly responsive -1b. LOC Questions 0 - Answers BOTH questions correctly -1c. LOC Commands 0 - Performs BOTH tasks correctly -2. Best Gaze 0 - Normal -3. Visual 0 - No visual loss -4. Facial Palsy 1 - Minor paralysis ( flattened nasolabial fold , asymmetry on smiling) -5a. Left Arm 0 - No drift; arm holds 90 ( or 45) degrees for full 10 seconds -5b. Right Arm 0 - No drift; arm holds 90 ( or 45) degrees for full 10 seconds -6a. Left Leg 0 - No drift; leg holds 30- degree position for full 5 seconds -6b. Right Leg 1 - Drift; leg falls by the end of 5- seconds, but does not hit bed -7. Limb Ataxia 1 - Present in 1 limb -8. Sensory 1 - Mild-to- moderate sensory loss; -9. Best Language 0 - No aphasia; normal -10. Dysarthria 1 = Mild-to- moderate dysarthria; -11. Extinction and Inattention 0 - No abnormality -Total 5 Query Text:A score of 0 is normal or asymptomatic. Total possible score is 42 . ED: Notify Physician for NIHSS increase by > / = 3 points. Inpatient: RN or Physician to activate a stroke alert for NIHSS increase of > / = 3 points. Coma Scale [Assess] -Eye Opening Spontaneous -Motor Obeys Commands -Verbal Oriented [Total] -Coma Scale Total 15
[2024-09-14] MEDS: APIXABAN 5 MG TABLET PO ×2 (10:05→23:15)
[2024-09-14] MEDS: 0.9% Saline Lock 10 ML Syringe IV (10:06)
[2024-09-14] MEDS: Insulin Glargine-YFGN 100 UNIT/ML Pen 10 UNIT SC (10:13)
--- NOTE | 2024-09-14 10:45 | CASEMGMT ---
RN CM Face to Face with patient for initial transition planning/care coordination assessment. RN CM introduced self and role at [facility]. Patient lying in bed, alert and oriented. Patient willing to participate in assessment and is able to answer all questions appropriately. Care providers, pharmacy, and demographics verified. Strata: 2 PCP: Diego Specialists: Karl, insurance claims supervisor Preferred Pharmacy: [facility]; [facility] Retail at discharge. Insurance: [employer] [facility] Prescription Benefit: yes Living Will/HPOA: none, interested in completing, SW notified LNOK: Living Arrangements: Patient lives with in a single story home with 2 steps to enter the home. Patient states he was independent at home. Transportation: self, DME/HHC: Patient has access to cane, walker, and cpap at home. No previous HHC or SNF. Patient wishes to discharge home. Will monitor progerss with therapy for recommendations. Patient states he has no further needs or concerns at this time. CM to follow for discharge planning needs that may arise. Disposition Plan: TBD, pending therapy evals. Qi DRAKE, RN, CM
--- NOTE | 2024-09-14 12:30 | CASEMGMT ---
RN CM updated by therapy that patient would benefit from Acute Rehab at discharge. RN CM in to discuss recommendations with patient. RN CM explained the benefit of Acute Rehab, patient is agreeable to Acute Rehab and prefer [facility] Acute Rehab, declined RU list. Patient asked RN CM to update . RN CM called and updated regarding plan to [facility] RU, agreeable to plan. had no further questions or concerns. RN CM made referral to [facility] RU. CM will continue to follow this patient and plan for a safe discharge.
--- NOTE | 2024-09-14 13:46 | PCM.PN.SRG ---
Subjective Subjective I saw patient this afternoon sitting up in the bedside chair. He feels his symptoms continue to improve, he still has some weakness in his R arm and leg but is able to move both and felt he did well with PT/OT today. He feels that his speech is pretty well back to his baseline. He has not had any difficulty eating. We discussed his activity level prior to his CVA. He reports that with activity like going up a flight of stairs he would not have CP or SOB necessarily but would feel fatigued and have back pain. He denies any history of prior coronary artery interventions. Objective Data Objective Data Vital Signs: Vital Signs Temp Pulse Resp BP Pulse Ox O2 Del Method 98.4 F 59 L 16 123/70 H 94 Room Air 09/14/24 09:57 09/14/24 09:57 09/14/24 09:57 09/14/24 09:57 09/14/24 09:57 09/14/24 09:57 Oxygen Delivery Method Room Air Weight: 211 lb 9 oz Body Mass Index (BMI) 30.3 Intake & Output: Intake and Output for Last 24 Hours 09/12/24 09/13/24 09/14/24 23:59 23:59 23:59 Intake Total 600 / 600 1000 / 1000 Balance 600 / 600 1000 / 1000 Lab / Micro Data 09/14/24 05:16 09/14/24 05:16 Labs: Laboratory Results - last 24 hr 09/13/24 16:28: POC Glucose 148 H 09/13/24 22:25: POC Glucose 107 H 09/14/24 05:16: WBC 6.2, RBC 4.69, Hgb 13.8, Hct 41.0, MCV 87.4, MCH 29.4, MCHC 33.7, RDW Std Deviation 42.6, RDW Coeff of Rosa Maria 13.3, Plt Count 189, MPV 9.6, Immature Gran % (Auto) 0.500, Neut % (Auto) 67.0, Lymph % (Auto) 20.6, [place] % (Auto) 8.6, Eos % (Auto) 2.3, Baso % (Auto) 1.0, Absolute Neuts (auto) 4.1, Absolute Lymphs (auto) 1.27, Nucleated RBC % 0, Sodium 138, Potassium 4.2, Chloride 104, Carbon Dioxide 23.3, Anion Gap 10, BUN 16, Creatinine 0.87, Estim Creat Clear Calc 81.35, Est GFR (MDRD) Non-Af 88, BUN/Creatinine Ratio 18.0, Glucose 129 H, Hemoglobin A1c 7.6 H, Calcium 9.1, Phosphorus 3.4, Magnesium 2.2, Triglycerides 132, Cholesterol 218 H, LDL Cholesterol, Calc 149, VLDL Cholesterol 26, HDL Cholesterol 43, Cholesterol/HDL Ratio 5.06, TSH 1.910 09/14/24 11:33: POC Glucose 172 H Radiography Diagnostic Testing: Radiology Impression Brain MRI 09/13/24 12:59 IMPRESSION: 1. Findings consistent with an embolic shower from the left ICA. The involvement of the occipital lobe is unusual. 2. Cerebral atrophy. Note: The findings were called to the charge nurse in the PCU at [facility] on 09/13/2024 at 3:50 p.m. Reading Location: [place] [id number] Echocardiogram 09/13/24 12:59 Interpretation Summary The estimated ejection fraction is 60-65 %. Mild (1+) mitral valve insufficiency. Mild (1+) tricuspid valve insufficiency. Mild (1+) aortic valve insufficiency. Mild focal aortic valve calcification. Contrast injection was performed. Ordering Physician: Dennis Willis Performed By: Pauly Estes RDCS and Student Physical Exam Const alert, oriented x3 and no apparent distress General Appearance: cooperative HEENT normocephalic, head/scalp atraumatic and external nose normal Eyes EOMs intact bilaterally General Eye: normal appearance of both eyes Neck full ROM General: normal visual inspection Resp normal respiratory effort and no retractions Effort and Inspection: able to speak in complete sentences Cardio Rate: regular rate Rhythm: regular rhythm Skin no rashes or lesions noted Neuro Neuro Narrative: Mild RUE and RLE weakness, slight facial droop Psych mental status grossly normal Appearance: grossly normal Assessment & Plan Assessment/Plan (1) Left carotid stenosis: (2) CVA (cerebral vascular accident): PLAN: Plan Patient is scheduled for outpatient L CEA on 09/29/24 at present. Reviewed echo/EKG results; noted history of paroxysmal Afib and prior coronary calcium score indicating moderate coronary atherosclerosis. Will plan to obtain nuclear medicine stress test for further cardiac evaluation prior to surgery; order placed. Continue Eliquis 5mg BID and ASA 81mg daily. Would increase to atorvastatin 80mg daily if tolerated for medical optimization. Charges/Coding Visit Charges Inpatient E&M: 28454 Subs Hosp L1
--- NOTE | 2024-09-14 13:53 | STROKE.CONS ---
Assessment and Plan: Stroke Assessment/Plan Acute Ischemic Stroke in L Cerebral Hemisphere in the L Frontal, Parietal and Occipital lobes, predominantly in the MCA distribution but also in the GLASS MAKER distribution. Etiology: AFIB (not correctly taking AC; was only taking Eliquis once a day, but is prescribed to take it BID) vs. ABDOUL (L ICA with 99 % stenosis) CTH/CTA/MRI complete Follow up TTE AC/AP plan: Continue Eliquis 5 mg BID and ASA 81 mg daily (educated on proper dosage of AC) Agree with vascular surgery evaluation and outpatient planning for L CEA in 2-4 weeks LDL is 149, please increase to high intensity Atorvastatin to 80 mg qhs, goal < 70 Please obtain A1C, ensure glycemic control Vascular risk factor modification Follow up with PCP 1-2 weeks, Vascular Surgery 1-2 weeks, Neurovascular 4-6 weeks HPI Consult Data Date of Consult: 09/14/24 HPI Narrative HPI Narrative: Mr. Mckeon reports sudden difficulty with his right arm, particularly writing and using his utensils for food. He states when this did not improve he sought evaluation. He currently denies headache, or vision changes. Does state his is hard sometimes to find words and feels delayed. He reports compliance with medication at home, but on further questioning he states he was only taking Eliquis in the morning and not twice a day. On examination he has RUE drift and difficulty with fine motor movements of R hand. Difficulty with writing his name on paper. [facility] Medical History Tachyarrhythmia Paroxysmal supraventricular tachycardia Paroxysmal atrial fibrillation Elevated coronary artery calcium score History of CVA (cerebrovascular accident) (07/03/20) Premature atrial contraction First degree AV block Premature ventricular contraction Cancer Diabetes GERD (gastroesophageal reflux disease) CPAP (continuous positive airway pressure) dependence Sleep apnea Home Medications ?Medication ?Instructions ?Recorded ?Last Taken ?Type empagliflozin 25 mg tablet 25 mg PO DAILY 07/01/20 Unknown History (Jardiance) finasteride 5 mg tablet 5 mg PO DINNER 07/01/20 Unknown History insulin glargine 100 unit/mL (3 15 unit subcut BREAKFAST diabetes 07/01/20 Unknown History mL) subcutaneous pen (Lantus Solostar U-100 Insulin) sitagliptin phosphate 50 50 - 1,000 tab PO DAILY 07/01/20 Unknown History mg-metformin 1,000 mg tablet (Janumet) tamsulosin 0.4 mg capsule 0.4 mg PO DINNER 07/01/20 Unknown History aspirin 81 mg chewable tablet 81 mg PO DAILY CVA 30 days #30 tabs 07/03/20 Unknown Rx atorvastatin 40 mg tablet 40 mg PO QHS cholesterol 30 days 07/03/20 Unknown Rx #30 tabs apixaban 5 mg tablet (Eliquis) 5 mg PO BID blood 11/08/20 09/13/24 07:00 History famotidine 20 mg tablet 20 mg PO DAILY PRN stomach 09/13/24 Unknown History insulin aspart U-100 100 unit/mL 10 unit subcut DAILY diabetes 09/13/24 Unknown History (3 mL) subcutaneous pen (Novolog FlexPen U-100 Insulin aspart) Allergy/AdvReac Type Severity Reaction Status Date / Time No Known Allergies Allergy Verified 11/08/20 08:10 Family History Other CVA (cerebral vascular accident) Surgical History H/O: knee surgery History of appendectomy Social History adopted: No household members: spouse housing: house number of children: 3 current occupational status: retired pets and animals: Yes leisure activities: exercise, games, hunting and fishing history of recent travel: No sexually active: Yes Smoking Status: Former smoker diet: low carbohydrate well-balanced diet: daily or most days caffeine: Yes eating out: 1-3 times/week during the past year weight has: remained stable what type of physical activity do you participate in: walking Vital Signs Vital Signs Vital Signs: 09/13/24 16:33 09/13/24 17:29 09/13/24 22:00 Temperature 98.0 F 98.1 F Temperature Source Oral Temporal Pulse Rate 55 L 62 Pulse Strength Respiratory Rate 16 18 Respiratory Effort Respiratory Depth Respiratory Pattern Blood Pressure 125/72 H 138/85 H Blood Pressure Mean 89 102 Blood Pressure Source Monitor Monitor Blood Pressure Position Semi-Fowlers Semi-Fowlers Blood Pressure Location Left Arm Left Arm Pulse Ox 92 94 92 Oxygen Delivery Method Room Air Room Air Room Air 09/13/24 22:00 09/13/24 22:00 09/14/24 02:00 Temperature 98.3 F Temperature Source Temporal Pulse Rate 58 L Pulse Strength Normal (2+) Respiratory Rate 14 Respiratory Effort Normal Non-Labored Respiratory Depth Normal Respiratory Pattern Normal Blood Pressure 126/82 H Blood Pressure Mean 96 Blood Pressure Source Monitor Blood Pressure Position Semi-Fowlers Blood Pressure Location Left Arm Pulse Ox 92 Oxygen Delivery Method Room Air Room Air 09/14/24 02:55 09/14/24 06:00 09/14/24 08:08 Temperature 98.2 F Temperature Source Temporal Pulse Rate 61 Pulse Strength Respiratory Rate 16 Respiratory Effort Normal Non-Labored Respiratory Depth Normal Respiratory Pattern Normal Blood Pressure 119/76 Blood Pressure Mean 90 Blood Pressure Source Monitor Blood Pressure Position Semi-Fowlers Blood Pressure Location Left Arm Pulse Ox 92 97 Oxygen Delivery Method Room Air Room Air Room Air 09/14/24 09:57 09/14/24 10:00 Temperature 98.4 F Temperature Source Oral Pulse Rate 59 L Pulse Strength Normal (2+) Respiratory Rate 16 Respiratory Effort Respiratory Depth Respiratory Pattern Blood Pressure 123/70 H Blood Pressure Mean 87 Blood Pressure Source Monitor Blood Pressure Position Semi-Fowlers Blood Pressure Location Right Arm Pulse Ox 94 Oxygen Delivery Method Room Air Weight Weight: 95.963 kg Body Mass Index (BMI) 30.3 EEG Results Procedure Details EEG Procedure Details: CHASITY MCKEON is a 78 year old M with a past medical history of , who presents for evaluation of Electroencephalogram on DATE at TIME Physical Exam Narrative Alert and oriented Following commands Speech slow but fluent, object naming and repetition intact RUE drift LUE no drift BLLE no drift FTN testing without dysmetria Gait deferred NIHSS 1 for RUE drift Lab / Micro Data 09/14/24 05:16 09/14/24 05:16 Labs: Laboratory Results - last 24 hr 09/13/24 16:28: POC Glucose 148 H 09/13/24 22:25: POC Glucose 107 H 09/14/24 05:16: WBC 6.2, RBC 4.69, Hgb 13.8, Hct 41.0, MCV 87.4, MCH 29.4, MCHC 33.7, RDW Std Deviation 42.6, RDW Coeff of Rosa Maria 13.3, Plt Count 189, MPV 9.6, Immature Gran % (Auto) 0.500, Neut % (Auto) 67.0, Lymph % (Auto) 20.6, [place] % (Auto) 8.6, Eos % (Auto) 2.3, Baso % (Auto) 1.0, Absolute Neuts (auto) 4.1, Absolute Lymphs (auto) 1.27, Nucleated RBC % 0, Sodium 138, Potassium 4.2, Chloride 104, Carbon Dioxide 23.3, Anion Gap 10, BUN 16, Creatinine 0.87, Estim Creat Clear Calc 81.35, Est GFR (MDRD) Non-Af 88, BUN/Creatinine Ratio 18.0, Glucose 129 H, Hemoglobin A1c 7.6 H, Calcium 9.1, Phosphorus 3.4, Magnesium 2.2, Triglycerides 132, Cholesterol 218 H, LDL Cholesterol, Calc 149, VLDL Cholesterol 26, HDL Cholesterol 43, Cholesterol/HDL Ratio 5.06, TSH 1.910 09/14/24 11:33: POC Glucose 172 H Imaging Radiology Impression Brain MRI 09/13/24 12:59 IMPRESSION: 1. Findings consistent with an embolic shower from the left ICA. The involvement of the occipital lobe is unusual. 2. Cerebral atrophy. Note: The findings were called to the charge nurse in the PCU at [facility] on 09/13/2024 at 3:50 p.m. Reading Location: [place] [id number] Echocardiogram 09/13/24 12:59 Interpretation Summary The estimated ejection fraction is 60-65 %. Mild (1+) mitral valve insufficiency. Mild (1+) tricuspid valve insufficiency. Mild (1+) aortic valve insufficiency. Mild focal aortic valve calcification. Contrast injection was performed. Ordering Physician: Dennis Willis Performed By: Pauly Estes RDCS and Student Active Medications Active Medications Active Medications: Current Medications Generic Name Dose Route Start Last Admin Trade Name Freq PRN Reason Stop Dose Admin Acetaminophen 650 mg 09/13/24 12:59 Acetaminophen 325 Mg Tablet PO Q6H PRN PRN Pain 1-10 Or Fever>100.7 Al Hydroxide/Mg Hydroxide 30 ml 09/13/24 12:59 Mag Hydrox/Al Hydrox/Simeth 30 Ml Udc PO Q6H PRN PRN Gastric Burning Apixaban 5 mg 09/13/24 22:00 09/14/24 10:05 Apixaban 5 Mg Tablet PO 5 mg BID SILAS Administration Aspirin 81 mg 09/14/24 08:00 09/14/24 10:06 Aspirin 81 Mg Tab.Chew PO 81 mg BREAKFAST SILAS Administration Atorvastatin Calcium 40 mg 09/13/24 22:00 09/13/24 22:26 Atorvastatin Calcium 40 Mg Tablet PO 40 mg QHS SILAS Administration Famotidine 20 mg 09/13/24 22:00 09/14/24 10:06 Famotidine 20 Mg Tablet PO 20 mg BID SILAS Administration Finasteride 5 mg 09/14/24 10:00 09/14/24 10:05 Finasteride 5 Mg Tablet PO 5 mg DAILY SILAS Administration Glucagon 1 mg 09/13/24 12:59 Glucagon 1 Mg/Ml Syringe IM X1 PRN HYPOGLYCEMIA Protocol Guaifenesin 20 ml 09/13/24 12:59 Guaifenesin 10 Ml Udc (200mg/10ml) PO Q4H PRN PRN COUGH Dextrose 250 mls @ 0 mls/hr 09/13/24 12:59 Dextrose 10%-Water IV .Q0M PRN HYPOGLYCEMIA Protocol As Directed Sodium Chloride 250 mls @ 15 mls/hr 09/13/24 13:31 IV .[id number] PRN Saline Flush Sodium Chloride 250 mls @ 15 mls/hr 09/13/24 13:31 IV .[id number] PRN Additional IVPB Infusion Insulin Glargine 10 unit 09/14/24 08:00 09/14/24 10:13 Insulin Glargine-Yfgn 100 Unit/Ml Pen SC 10 unit BREAKFAST SILAS Administration Insulin Human Lispro 0 unit 09/13/24 16:00 09/14/24 13:15 Insulin Lispro 100 Unit/Ml Insuln.Pen SC Not Given ACHS SILAS Protocol Melatonin 3 mg 09/13/24 12:59 Melatonin 3 Mg Tablet PO QHS PRN PRN INSOMNIA Nitroglycerin 0.4 mg 09/13/24 12:59 Nitroglycerin (Inpatient Use) 0.4 Mg Tab.Subl SL Q5M PRN CARDIAC/CHEST PAIN Ondansetron HCl 4 mg 09/13/24 12:59 Ondansetron 4 Mg/2 Ml Vial IV Q8H PRN PRN NAUSEA/VOMITING Senna/Docusate Sodium 2 tablet 09/13/24 12:59 Senna/Docusate Sodium 1 Tablet PO BID PRN PRN Constipation Sodium Chloride 10 - 40 ml 09/13/24 13:31 09/14/24 10:06 0.9% Saline Lock 10 Ml Syringe IV 10 ml UD PRN Administration SALINE FLUSH Tamsulosin HCl 0.4 mg 09/13/24 17:00 09/13/24 16:30 Tamsulosin Hcl 0.4 Mg Capsule PO 0.4 mg DINNER SILAS Administration NIHSS NIHSS Nursing Documentation NIHSS Nursing Documentation: NIHSS: Ischemic Stroke/TIA Start: 09/13/24 12:59 Text: For PCU Patients: NIH and Neuro Check every 4 Status: Active hours, PRN and with change in RN caregiver. Freq: [id number] Protocol: Activity Type Activity Date Activity User E-sign Co-sign Detail Recorded Client Recorded Date Recorded By Document 09/14/24 09:58 [id number] 09/14/24 10:05 SS 09/14/24 09:58 NIH Stroke Scale [NIHSS] A score of 0 is normal or asymptomatic . Total possible score is 42. Inpatient: RN or Physician to activate a stroke alert for onset of new stroke symptoms or with NIHSS increase >/= 3 points. Following change in neurological status, NIHSS will be performed per physician order or more frequently PRN. -1a. Level of Consciousness 0 - Alert; keenly responsive -1b. LOC Questions 0 - Answers BOTH questions correctly -1c. LOC Commands 0 - Performs BOTH tasks correctly -2. Best Gaze 0 - Normal -3. Visual 0 - No visual loss -4. Facial Palsy 1 - Minor paralysis ( flattened nasolabial fold , asymmetry on smiling) -5a. Left Arm 0 - No drift; arm holds 90 ( or 45) degrees for full 10 seconds -5b. Right Arm 1 - Drift; arm drifts downward but doesn?t hit the bed -6a. Left Leg 0 - No drift; leg holds 30- degree position for full 5 seconds -6b. Right Leg 0 - No drift; leg holds 30- degree position for full 5 seconds -7. Limb Ataxia 1 - Present in 1 limb -8. Sensory 1 - Mild-to- moderate sensory loss; -9. Best Language 0 - No aphasia; normal -10. Dysarthria 1 = Mild-to- moderate dysarthria; -11. Extinction and Inattention 0 - No abnormality -Total 5 Query Text:A score of 0 is normal or asymptomatic. Total possible score is 42 . ED: Notify Physician for NIHSS increase by > / = 3 points. Inpatient: RN or Physician to activate a stroke alert for NIHSS increase of > / = 3 points. Coma Scale [Assess] -Eye Opening Spontaneous -Motor Obeys Commands -Verbal Oriented [Total] -Coma Scale Total 15
--- NOTE | 2024-09-14 16:22 | CHAPLAIN ---
Type of Pastoral Visit _x__ Initial Visit ___ Follow-up Visit ___ On-call Visit ___ General Patient Visit ___ Spiritual Assessment ___ Family Conference ___ Bereavement ___ Rapid Response ___ Code Blue ___ Other (describe below) Pastoral Care Referral From _x__ Patient ___ Family ___ Nurse ___ Physician ___ Receiver ___ Wire Inserter ___ Other (describe below) Sacrament/Intervention _x__ Active listening ___ Anointing ___ Scientology ___ Bereavement ___ Communion _x__ Roro exploration ___ _x__ Life review _x__ Prayer ___ Reconciliation ___ Sacrament of Sick _x__ Supportive presence ___ Wedding ___ Other (describe below) Pastoral Comments patient and spouse are together and both are interactive in the visit; some life review given; both give some health information on the patient and just some of the recent issues; pt discovered his need for carotid artery surgery and acknowledges that the timing of his light stroke was the reason for this discovery; pt has a roro community and connection; pt praises his for his great care and support; pt welcomes presence and prayer
[2024-09-15] VITALS (9 sets, daily range): BP systolic 110–137; BP diastolic 60–84; PULSE 45–62; RESP 14–16; TEMP 36.1–36.7; O2SAT 93–97; BMI 30.3
[2024-09-15 05:23] LABS: Hematocrit 40.4 % (40-54); Hemoglobin 13.7 g/dL (13.0-16.5); Immature Granulocytes Count 0.030 X10^3/uL (0.0-0.0); Mean Corp Hgb Conc 33.9 g/dL (32-36); Mean Corpuscular Volume 86.9 fL (80-94); Mean Platelet Vol. 9.9 fl (6.2-12.0); NRBC Flagged by Analyzer 0 % (0-5); Platelet Count 161 K/mm3 (150-450); RBC Distribution Width CV 13.2 % (11.6-14.6); RBC Distribution Width SD 41.1 fl (35.1-43.9); Red Blood Count 4.65 M/mm3 (4.6-6.2); White Blood Count 6.3 K/mm3 (4.4-11.0)
[2024-09-15 06:16] LABS: Anion Gap 11 (5-15); BUN 14 mg/dL (4-19); BUN/Creat Ratio 15.0 RATIO (10-20); Calcium,Total 9.0 mg/dL (7.6-11.0); Carbon Dioxide 23.7 mmol/L (21.0-32.0); Chloride 104 mmol/L (98-108); Estimated Creatinine Clearance 77.77 ml/min (50-250); Glucose 156 mg/dL (70-99); Potassium 5.3 mmol/L (3.3-5.1)
--- NOTE | 2024-09-15 09:35 | PN.HOSP_ITS ---
Reason for Visit Chief Complaint: Right-sided weakness Subjective Subjective Patient is scheduled to undergo nuclear stress test as part of preparation for intervention for his left carotid artery stenosis Objective Data Objective Data Vital Signs: Vital Signs Temp Pulse Resp BP Pulse Ox O2 Del Method 97.9 F 53 L 16 124/71 H 96 Room Air 09/15/24 06:00 09/15/24 06:00 09/15/24 06:00 09/15/24 06:00 09/15/24 06:00 09/15/24 06:00 Oxygen Delivery Method Room Air Weight: 95.963 kg Body Mass Index (BMI) 30.3 Intake & Output: Intake and Output for Last 24 Hours 09/13/24 09/14/24 09/15/24 23:59 23:59 23:59 Intake Total 600 / 600 3600 / 3720 120 / 120 Balance 600 / 600 3600 / 3720 120 / 120 Lab / Micro Data 09/15/24 05:12 09/15/24 05:12 Labs: Laboratory Results - last 24 hr 09/14/24 11:33: POC Glucose 172 H 09/14/24 16:45: POC Glucose 122 H 09/14/24 23:12: POC Glucose 128 H 09/15/24 05:12: WBC 6.3, RBC 4.65, Hgb 13.7, Hct 40.4, MCV 86.9, MCH 29.5, MCHC 33.9, RDW Std Deviation 41.1, RDW Coeff of Rosa Maria 13.2, Plt Count 161, MPV 9.9, Immature Gran % (Auto) 0.500, Neut % (Auto) 70.2 H, Lymph % (Auto) 17.9 L, [place] % (Auto) 8.5, Eos % (Auto) 2.1, Baso % (Auto) 0.8, Absolute Neuts (auto) 4.4, Absolute Lymphs (auto) 1.12, Nucleated RBC % 0, Sodium 139, Potassium 5.3 H, Chloride 104, Carbon Dioxide 23.7, Anion Gap 11, BUN 14, Creatinine 0.91, Estim Creat Clear Calc 77.77, Est GFR (MDRD) Non-Af 86, BUN/Creatinine Ratio 15.0, G lucose 156 H, Calcium 9.0 09/15/24 06:30: POC Glucose 157 H Radiography Diagnostic Testing: Radiology Impression Echocardiogram 09/13/24 12:59 Interpretation Summary The estimated ejection fraction is 60-65 %. Mild (1+) mitral valve insufficiency. Mild (1+) tricuspid valve insufficiency. Mild (1+) aortic valve insufficiency. Mild focal aortic valve calcification. Contrast injection was performed. Ordering Physician: Dennis Willis Performed By: Pauly Estes RDCS and Student Physical Exam Narrative GENERAL: cooperative HEENT: Atraumatic; normocephalic EYES; Anicteric, Normal Conjunctiva NECK; supple, normal thyroid, RESPIRATORY: Diminished to auscultation CARDIOVASCULAR: Regular S1 S2, GI: soft, normoactive bowel sounds, : No Renal angle tenderness; EXTREMITIES: No edema, no clubbing, MUSCULOSKELETAL: no muscle wasting NEURO: Awake; muscle strength in right upper extremity 4/5, 5/5 on the left SKIN: No Rash PSYCH; Flat affect Assessment & Plan Assessment/Plan (1) CVA (cerebral vascular accident): (2) Left-sided carotid artery disease: (3) Paroxysmal atrial fibrillation: PLAN: Plan Patient is a 78-year-old gentleman presented with a 5-day history of right-sided weakness and numbness 1. Acute CVA ? Possibly thromboembolic from patient's underlying A-fib. Patient presented 5 days after onset of his symptoms therefore not a candidate for TNK. Patient has been admitted to a monitored bed requested for PT OT/speech therapy eval. Patient is already on aspirin and statin therapy did continue. Consult placed to [facility]. Ordered lipid panel, 2D echo and MRI as part of his evaluation 09/14/2024;MRI obtained did show Findings consistent with an embolic shower from the left ICA. ? 09/15/2024; patient was seen in consultation by [facility] recommendations reviewed. Patient currently being assessed for transfer to the inpatient rehab unit 2. Paroxysmal A-fib ? Rate controlled patient is on systemic anticoagulation with apixaban. Patient educated on the need to be compliant with therapy to prevent recurrence of above 3. Severe left ICA stenosis?99% ? Consult placed to Dr. Figueroa ? 09/14/2024; patient was seen in consultation by Dr. Cooper Lockhart with vascular surgery recommended continue with apixaban 5 mg twice daily aspirin and increasing atorvastatin to 80 mg daily with plans for patient to follow-up as outpatient for left carotid endarterectomy ? 09/15/2024;Patient is scheduled to undergo nuclear stress test as part of preparation for intervention for his left carotid artery stenosis 4. Dyslipidemia ?Patient is on statin therapy, continued at home dose ? 09/15/2024; did increase patient atorvastatin from 40 mg to 80 mg 5. Hypertension ? Blood pressure controlled, home medications continued with dose adjustment as needed 6. BPH with lower urinary obstructive symptoms - Patient treated with tamsulosin 7. Diabetes mellitus type II -patient's oral hypoglycemics held. Placed on long acting insulin, Accu-Cheks a.c. and at bedtime and covered with sliding scale insulin ? 09/14/2024; patient hemoglobin A1c was 7.6 8. Class I obesity with BMI of 32 ? Complicating care weight loss advised 9. GERD ? Patient was on PPI did continue 10. DVT prophylaxis ? Patient already on apixaban Time spent in the patient's overall evaluation,decision-making process, review of diagnostic data, adjustment of management, discussion with other providers, nursing nursing and ancillary staff involved in patient's care documentation, 35 Minutes Charges/Coding Visit Charges Inpatient E&M: 30091 Subs Hosp L2 NIHSS NIHSS Nursing Documentation NIHSS Nursing Documentation: NIHSS: Ischemic Stroke/TIA Start: 09/13/24 12:59 Text: For PCU Patients: NIH and Neuro Check every 4 Status: Active hours, PRN and with change in RN caregiver. Freq: [id number] Protocol: Activity Type Activity Date Activity User E-sign Co-sign Detail Recorded Client Recorded Date Recorded By Document 09/15/24 07:25 PATTY [id number] 09/15/24 07:33 PATTY 09/15/24 07:25 NIH Stroke Scale [NIHSS] A score of 0 is normal or asymptomatic . Total possible score is 42. Inpatient: RN or Physician to activate a stroke alert for onset of new stroke symptoms or with NIHSS increase >/= 3 points. Following change in neurological status, NIHSS will be performed per physician order or more frequently PRN. -1a. Level of Consciousness 0 - Alert; keenly responsive -1b. LOC Questions 0 - Answers BOTH questions correctly -1c. LOC Commands 0 - Performs BOTH tasks correctly -2. Best Gaze 0 - Normal -3. Visual 0 - No visual loss -4. Facial Palsy 1 - Minor paralysis ( flattened nasolabial fold , asymmetry on smiling) -5a. Left Arm 0 - No drift; arm holds 90 ( or 45) degrees for full 10 seconds -5b. Right Arm 0 - No drift; arm holds 90 ( or 45) degrees for full 10 seconds -6a. Left Leg 0 - No drift; leg holds 30- degree position for full 5 seconds -6b. Right Leg 0 - No drift; leg holds 30- degree position for full 5 seconds -7. Limb Ataxia 0 - Absent -8. Sensory 0 - Normal; no sensory loss -9. Best Language 0 - No aphasia; normal -10. Dysarthria 0 - Normal -11. Extinction and Inattention 0 - No abnormality -Total 1 Query Text:A score of 0 is normal or asymptomatic. Total possible score is 42 . ED: Notify Physician for NIHSS increase by > / = 3 points. Inpatient: RN or Physician to activate a stroke alert for NIHSS increase of > / = 3 points.
--- NOTE | 2024-09-15 10:23 | STRESSREP ---
Stress Test Report Date: 09/15/2024 Procedure: Pharmacologic stress nuclear imaging study Indications: Preop evaluation Consent: Per the patient Procedure: The patient underwent pharmacologic (Regadenoson 0.4mg ) evaluation with a peak heart rate of 75 beats per minute (52%predicted maximal heart rate) and a peak blood pressure of 138 over mmHg. The baseline ECG demonstrated sinus rhythm. The peak pharmacologic ECG failed to show any ischemic changes. There were no cardiac dysrhythmias pretest, during pharmacologic infusion, or recovery. There was no complaint of chest discomfort during pharmacologic infusion or recovery. The patient was injected with 14.1 millicuries of technetium 99m Cardiolite and subsequently rest SPECT Cardiolite nuclear imaging was obtained in the horizontal long, vertical long, and short axis views. The patient underwent pharmacologic (Regadenoson) evaluation. The patient was injected with 44.3 millicuries of technetium 99m Cardiolite and subsequently stress SPECT Cardiolite nuclear imaging was obtained in the horizontal long, vertical long, and short axis views. A gated Cardiolite study at peak stress was obtained. The examination was stopped secondary to completion of protocol. Rest and stress SPECT Cardiolite nuclear imaging status post realignment, normalization, and attenuation correction demonstrate no fixed or reversible perfusion defects. There is end systolic thickening and brightening. The gated Cardiolite study demonstrates myocardial thickening and inward wall motion. The reported LVEF is 72%. Impression: 1. Pharmacologic (Regadenoson) evaluation 2. Peak pharmacologic ECG with no ischemic changes. 3. There were no cardiac dysrhythmias pretest, during pharmacologic infusion, or recovery. 5. Rest and stress SPECT Cardiolite nuclear imaging demonstrate relative uniform tracer uptake and myocardial perfusion appearing within normal limits. 6. The gated Cardiolite study reports an LVEF of 72%. This note was generated with [employer] software. It may contain incorrect words, spelling, and punctuation that were not noted in checking the note before signing.
--- NOTE | 2024-09-15 11:00 | PN.NEURO_ITS ---
Objective Data Objective Data Vital Signs: Vital Signs Temp Pulse Resp BP Pulse Ox O2 Del Method 97.8 F 58 L 14 116/62 94 Room Air 09/15/24 10:05 09/15/24 10:05 09/15/24 10:05 09/15/24 10:05 09/15/24 10:05 09/15/24 10:05 Oxygen Delivery Method Room Air Weight: 95.963 kg Body Mass Index (BMI) 30.3 Intake & Output: Intake and Output for Last 24 Hours 09/13/24 09/14/24 09/15/24 23:59 23:59 23:59 Intake Total 600 / 600 3600 / 3720 120 / 120 Balance 600 / 600 3600 / 3720 120 / 120 Lab / Micro Data 09/15/24 05:12 09/15/24 05:12 Labs: Laboratory Results - last 24 hr 09/14/24 11:33: POC Glucose 172 H 09/14/24 16:45: POC Glucose 122 H 09/14/24 23:12: POC Glucose 128 H 09/15/24 05:12: WBC 6.3, RBC 4.65, Hgb 13.7, Hct 40.4, MCV 86.9, MCH 29.5, MCHC 33.9, RDW Std Deviation 41.1, RDW Coeff of Rosa Maria 13.2, Plt Count 161, MPV 9.9, Immature Gran % (Auto) 0.500, Neut % (Auto) 70.2 H, Lymph % (Auto) 17.9 L, [place] % (Auto) 8.5, Eos % (Auto) 2.1, Baso % (Auto) 0.8, Absolute Neuts (auto) 4.4, Absolute Lymphs (auto) 1.12, Nucleated RBC % 0, Sodium 139, Potassium 5.3 H, Chloride 104, Carbon Dioxide 23.7, Anion Gap 11, BUN 14, Creatinine 0.91, Estim Creat Clear Calc 77.77, Est GFR (MDRD) Non-Af 86, BUN/Creatinine Ratio 15.0, G lucose 156 H, Calcium 9.0 09/15/24 06:30: POC Glucose 157 H Subject: Neurology Subjective I did not see the patient today, I followed up on pending data to provide final recs. EEG Results Procedure Details EEG Procedure Details: CHASITY MCKEON is a 78 year old M with a past medical history of , who presents for evaluation of Electroencephalogram on DATE at TIME Assessment and Plan: Stroke Assessment/Plan Acute Ischemic Stroke in L Cerebral Hemisphere in the L Frontal, Parietal and Occipital lobes, predominantly in the MCA distribution but also in the CHURN OPERATOR distribution. Etiology: AFIB (not correctly taking AC; was only taking Eliquis once a day, but is prescribed to take it BID) vs. ABDOUL (L ICA with 99 % stenosis) CTH/CTA/MRI complete TTE complete AC/AP plan: Continue Eliquis 5 mg BID and ASA 81 mg daily (educated on proper dosage of AC) Agree with vascular surgery evaluation and outpatient planning for L CEA in 2-4 weeks LDL is 149, please increase to high intensity Atorvastatin to 80 mg qhs, goal < 70 A1C 7.6, optimize glycemic control ? Vascular risk factor modification Follow up with PCP 1-2 weeks, Vascular Surgery 1-2 weeks, Neurovascular 4-6 weeks No further workup indicated at this time NIHSS NIHSS Nursing Documentation NIHSS Nursing Documentation: NIHSS: Ischemic Stroke/TIA Start: 09/13/24 12:59 Text: For PCU Patients: NIH and Neuro Check every 4 Status: Active hours, PRN and with change in RN caregiver. Freq: [id number] Protocol: Activity Type Activity Date Activity User E-sign Co-sign Detail Recorded Client Recorded Date Recorded By Document 09/15/24 10:05 PATTY [id number] 09/15/24 10:08 PATTY 09/15/24 10:05 NIH Stroke Scale [NIHSS] A score of 0 is normal or asymptomatic . Total possible score is 42. Inpatient: RN or Physician to activate a stroke alert for onset of new stroke symptoms or with NIHSS increase >/= 3 points. Following change in neurological status, NIHSS will be performed per physician order or more frequently PRN. -1a. Level of Consciousness 0 - Alert; keenly responsive -1b. LOC Questions 0 - Answers BOTH questions correctly -1c. LOC Commands 0 - Performs BOTH tasks correctly -2. Best Gaze 0 - Normal -3. Visual 0 - No visual loss -4. Facial Palsy 1 - Minor paralysis ( flattened nasolabial fold , asymmetry on smiling) -5a. Left Arm 0 - No drift; arm holds 90 ( or 45) degrees for full 10 seconds -5b. Right Arm 0 - No drift; arm holds 90 ( or 45) degrees for full 10 seconds -6a. Left Leg 0 - No drift; leg holds 30- degree position for full 5 seconds -6b. Right Leg 0 - No drift; leg holds 30- degree position for full 5 seconds -7. Limb Ataxia 0 - Absent -8. Sensory 0 - Normal; no sensory loss -9. Best Language 0 - No aphasia; normal -10. Dysarthria 0 - Normal -11. Extinction and Inattention 0 - No abnormality -Total 1 Query Text:A score of 0 is normal or asymptomatic. Total possible score is 42 . ED: Notify Physician for NIHSS increase by > / = 3 points. Inpatient: RN or Physician to activate a stroke alert for NIHSS increase of > / = 3 points. Coma Scale [Assess] -Eye Opening Spontaneous -Motor Obeys Commands -Verbal Oriented [Total] -Coma Scale Total 15
[2024-09-15] MEDS: APIXABAN 5 MG TABLET PO ×2 (11:32→21:13)
[2024-09-15] MEDS: Insulin Glargine-YFGN 100 UNIT/ML Pen 10 UNIT SC (11:33)
--- NOTE | 2024-09-15 14:36 | CASEMGMT ---
Social Work PHQ9 depression screen completed as pt has had a stroke. Score of 4 indicating minimal depression. Pt denies follow up for depression at this time. LEDY Rose
--- NOTE | 2024-09-15 14:38 | CASEMGMT ---
Social Work SW met with pt and assisted with completing advance directives. Pt completed a living will and health care POA naming his Jamila Hidalgo. Copy placed on pt chart and original given to pt. LEDY Rose
[2024-09-15] MEDS: 0.9% Saline Lock 10 ML Syringe IV (21:47)
[2024-09-16 02:00] VITALS: BP 107/60; PULSE 55; RESP 14; TEMP 36.6; O2SAT 97
[2024-09-16 03:00] VITALS: PULSE 49
[2024-09-16 06:00] VITALS: BP 119/75; PULSE 55; RESP 13; O2SAT 97
[2024-09-16 06:42] LABS: Hematocrit 45.0 % (40-54); Hemoglobin 15.3 g/dL (13.0-16.5); Immature Granulocytes Count 0.030 X10^3/uL (0.0-0.0); Mean Corp Hgb Conc 34.0 g/dL (32-36); Mean Corpuscular Volume 86.9 fL (80-94); Mean Platelet Vol. 9.4 fl (6.2-12.0); NRBC Flagged by Analyzer 0 % (0-5); Platelet Count 181 K/mm3 (150-450); RBC Distribution Width CV 13.2 % (11.6-14.6); RBC Distribution Width SD 42.0 fl (35.1-43.9); Red Blood Count 5.18 M/mm3 (4.6-6.2); White Blood Count 7.5 K/mm3 (4.4-11.0)
[2024-09-16 07:22] LABS: Anion Gap 13 (5-15); BUN 11 mg/dL (4-19); BUN/Creat Ratio 12.9 RATIO (10-20); Calcium,Total 9.6 mg/dL (7.6-11.0); Carbon Dioxide 22.1 mmol/L (21.0-32.0); Chloride 103 mmol/L (98-108); Estimated Creatinine Clearance 81.35 ml/min (50-250); Glucose 209 mg/dL (70-99); Potassium 4.1 mmol/L (3.3-5.1)
[2024-09-16 07:35] VITALS: BP 120/80; PULSE 62; RESP 16; TEMP 36.3; O2SAT 96
[2024-09-16 07:47] VITALS: O2SAT 95
[2024-09-16] MEDS: APIXABAN 5 MG TABLET PO (09:42)
--- NOTE | 2024-09-16 10:28 | PCM.DC.SUM ---
Providers Date of Admission: 09/13/24 Date of Discharge: 09/16/24 Primary Care Physician: Betsey Cortez, BATTERY MECHANIC-C Consultations 09/13/24 12:59 Consult: Vascular Surgery Routine Consulting Provider: Cooper Figueroa Reason for Consult: L ICA gnosis EMERGENT Consult: No Notified: Yes Date Notified: 09/13/24 Time Notified: 13:00 Method of Notification: ED Physician Initiated 09/13/24 12:59 Consult: Tele-Neurology Routine Consulting Provider: [facility] Reason for Consult: Acute Ischemic Stroke/TIA EMERGENT Consult: No Notified: Yes Date Notified: 09/13/24 Time Notified: 13:04 Method of Notification: Answering Service Nursing Unit Staff Notify [facility] of Tele-Neurology Consult: Yes Reason For Visit: ACUTE CVA Diagnosis Discharge Diagnosis (1) CVA (cerebral vascular accident): Status: Acute Code(s): I63.9 - Cerebral infarction, unspecified (2) Left-sided carotid artery disease: Status: Acute Code(s): I77.9 - Disorder of arteries and arterioles, unspecified (3) Paroxysmal atrial fibrillation: Status: Suspected Code(s): I48.0 - Paroxysmal atrial fibrillation Plan Patient is a 78-year-old gentleman presented with a 5-day history of right-sided weakness and numbness 1. Acute CVA ? Possibly thromboembolic from patient's underlying A-fib. Patient presented 5 days after onset of his symptoms therefore not a candidate for TNK. Patient has been admitted to a monitored bed requested for PT OT/speech therapy eval. Patient is already on aspirin and statin therapy did continue. Consult placed to [facility]. Ordered lipid panel, 2D echo and MRI as part of his evaluation 09/14/2024;MRI obtained did show Findings consistent with an embolic shower from the left ICA. ? 09/15/2024; patient was seen in consultation by [facility] recommendations reviewed. Patient currently being assessed for transfer to the inpatient rehab unit ? 09/16/2024; patient was denied transfer to the inpatient rehab unit discharge home with outpatient follow-up 2. Paroxysmal A-fib ? Rate controlled patient is on systemic anticoagulation with apixaban. Patient educated on the need to be compliant with therapy to prevent recurrence of above 3. Severe left ICA stenosis?99% ? Consult placed to Dr. Figueroa ? 09/14/2024; patient was seen in consultation by Dr. Cooper Lockhart with vascular surgery recommended continue with apixaban 5 mg twice daily aspirin and increasing atorvastatin to 80 mg daily with plans for patient to follow-up as outpatient for left carotid endarterectomy ? 09/15/2024;Patient is scheduled to undergo nuclear stress test as part of preparation for intervention for his left carotid artery stenosis ? 09/16/2024; patient nuclear stress test was negative for stress-induced ischemia Case was discussed with vascular surgery patient left ICA endarterectomy scheduled for 09/20/2024. 4. Dyslipidemia ?Patient is on statin therapy, continued at home dose ? 09/15/2024; did increase patient atorvastatin from 40 mg to 80 mg 5. Hypertension ? Blood pressure controlled, home medications continued with dose adjustment as needed 6. BPH with lower urinary obstructive symptoms - Patient treated with tamsulosin 7. Diabetes mellitus type II -patient's oral hypoglycemics held. Placed on long acting insulin, Accu-Cheks a.c. and at bedtime and covered with sliding scale insulin ? 09/14/2024; patient hemoglobin A1c was 7.6 8. Class I obesity with BMI of 32 ? Complicating care weight loss advised 9. GERD ? Patient was on PPI did continue 10. DVT prophylaxis ? Patient already on apixaban Time spent in the patient's overall evaluation,decision-making process, review of diagnostic data, adjustment of management, discussion with other providers, nursing nursing and ancillary staff involved in patient's care documentation, 35 Minutes Medications at Discharge Home Medications empagliflozin 25 mg tablet (Jardiance) 25 mg PO DAILY 07/01/20 finasteride 5 mg tablet 5 mg PO DINNER 07/01/20 insulin glargine 100 unit/mL (3 mL) subcutaneous pen (Lantus Solostar U-100 Insulin) 15 unit subcut BREAKFAST diabetes 07/01/20 sitagliptin phosphate 50 mg-metformin 1,000 mg tablet (Janumet) 50 - 1,000 tab PO DAILY 07/01/20 tamsulosin 0.4 mg capsule 0.4 mg PO DINNER 07/01/20 aspirin 81 mg chewable tablet 81 mg PO DAILY CVA 30 days #30 tabs 07/03/20 apixaban 5 mg tablet (Eliquis) 5 mg PO BID blood 11/08/20 famotidine 20 mg tablet 20 mg PO DAILY PRN stomach 09/13/24 insulin aspart U-100 100 unit/mL (3 mL) subcutaneous pen (Novolog FlexPen U-100 Insulin aspart) 10 unit subcut DAILY diabetes 09/13/24 atorvastatin 80 mg tablet 80 mg PO QHS #90 tabs 09/16/24 Weight / BMI Weight Weight: 95.963 kg Body Mass Index (BMI) 30.3 ABG / Lab / Microbiology Data 09/16/24 06:23 09/16/24 06:23 Laboratory: Laboratory Results - last 24 hr 09/15/24 11:30: POC Glucose 215 H 09/15/24 16:55: POC Glucose 138 H 09/15/24 21:12: POC Glucose 167 H 09/16/24 06:23: WBC 7.5, RBC 5.18, Hgb 15.3, Hct 45.0, MCV 86.9, MCH 29.5, MCHC 34.0, RDW Std Deviation 42.0, RDW Coeff of Rosa Maria 13.2, Plt Count 181, MPV 9.4, Immature Gran % (Auto) 0.400, Neut % (Auto) 68.0, Lymph % (Auto) 21.2, Schleicher % (Auto) 8.1, Eos % (Auto) 1.6, Baso % (Auto) 0.7, Absolute Neuts (auto) 5.1, Absolute Lymphs (auto) 1.60, Nucleated RBC % 0, Sodium 138, Potassium 4.1, Chloride 103, Carbon Dioxide 22.1, Anion Gap 13, BUN 11, Creatinine 0.87, Estim Creat Clear Calc 81.35, Est GFR (MDRD) Non-Af 88, BUN/Creatinine Ratio 12.9, Glucose 209 H, Calcium 9.6 09/16/24 06:26: POC Glucose 187 H Radiography Diagnostic Testing: Radiology Impression Carotid Duplex 09/13/24 16:49 Interpretation Summary Mild (<50%) stenosis right extracranial internal carotid. Severe (>70%) stenosis left extracranial internal carotid. Patent and antegrade vertebrals bilaterally. Ordering Physician: Camilla Brar Referring Physician: Betsey Cortez Performed By: Qi Oneil RVT D/C Instructions Discharge Activity: Return to Normal Activity Call your doctor if you observe: Fever of 101 or Higher, Shortness of breath, Fainting spells and Chest pain DC O2, CPAP, BIPAP Needs Home O2 Discharge instructions: No Meaningful Use Info Meaningful Use Meaningful Use Diagnoses (Choose all that apply): Ischemic CVA CVA Therapy Assessed for PT,OT and/or ST?: Yes Ischemic Stroke Antithrombotic order at d/c?: Yes Dx of Atrial fib/flutter?: Yes Anticoagulant at discharge?: Yes Statins at discharge?: Yes Primary Dx Acute Ischemic CVA?: Yes IV thrombolytic ordered during stay?: No Reason IV thrombolytic not ordered: Treatment not Indicated Discharge Plan Admission Admit Date/Time: 09/13/24 12:25 Attending Provider: Dennis Willis Primary Care Provider: Betsey Cortez Consulting Providers: Luis Cobos; Jonatan Patterson; Ashley Leo; Camilla Fitzgerald; Ashleigh Hernandes; Bruno Perkins; Nila Steele; Santy Antunez; Mike Conde; Kian Burgess; Leyla Huggins; Ean Taylor; Kathia Moreno; Marielle Castillo; Ariane Peoples; Jose Ortega; Ovidio Estrella; Cole Spring; Gloria Nelson; Arturo Alonso; Cooper Figueroa Discharge Orders/Prescriptions Prescriptions: New atorvastatin 80 mg Tablet 80 mg PO QHS Qty: 90 0RF Continued Eliquis 5 mg tablet 5 mg PO BID Patient Comments: not compliant; per pt not good at taking at taking evening dose tamsulosin 0.4 mg capsule 0.4 mg PO DINNER finasteride 5 mg tablet 5 mg PO DINNER Janumet 50-1,000 mg tablet 50 - 1,000 tab PO DAILY insulin glargine [Lantus Solostar U-100 Insulin] 100 unit/mL (3 mL) insulin pen 15 unit SUBCUT BREAKFAST Jardiance 25 mg tablet 25 mg PO DAILY aspirin 81 mg Tablet,Chewable 81 mg PO DAILY 30 Days Qty: 30 0RF Patient Comments: non compliant ; per pt doesn't take everyday if takes the eliquis insulin aspart U-100 [Novolog FlexPen U-100 Insulin] 100 unit/mL (3 mL) insulin pen 10 unit subcut DAILY famotidine 20 mg tablet 20 mg PO DAILY PRN (Reason: stomach ) Discontinued atorvastatin 40 mg Tablet 40 mg PO QHS 30 Days Qty: 30 0RF Patient Comments: non compliant Referrals / Follow Up: Svetlana Oneill MD [Med Staff - Editorial Project Manager] - In 1 Week Cooper Figueroa MD [Med Staff - Active Staff] - (As scheduled) Betsey Cortez NP-C [Primary Care Provider] - Disposition Disposition (needs filled in before D/C Order can be placed): Home, Self Care Charges/Coding Visit Charges Inpatient E&M: 93472 Disch Hosp >30min
--- NOTE | 2024-09-16 10:35 | CASEMGMT ---
ISHAAN PRITCHETT received update from RU intake that insurance has intent to deny RU at discharge, peer to peer offered. RN CM updated hospitalist, declined to complete peer to peer. RN YARELY in to update patient, patient called on speaker phone. RN CM updated patient and that insurance has intent to deny and the hospitalist feels patient is appropriate to discharge home. Patient and agreeable to discharge home. RN CM discussed therapy options with patient and and prefer outpatient therapy at [facility] and would like [facility] to call to schedule appointment. Patient will need walker at discharge, patient prefers [facility]. Patient and had no further questions or concerns. RN YARELY received scripts. Referral [facility] to [facility] with request for [facility] to call to schedule appt. RN CM sent referral to [facility] and made arrangements for walker to be delivered to patient's room prior to discharge. RN CM updated discharge plan. RN CM updated Nichole at to cancel referral.
[2024-09-16 10:42] VITALS: BMI 30.3
[2024-09-16 11:20] VITALS: BP 116/74; PULSE 59; RESP 16; TEMP 36.5; O2SAT 97
[2024-09-16] MEDS: Insulin Glargine-YFGN 100 UNIT/ML Pen 10 UNIT SC (11:29)
== END 2024-09-16 13:28 | disposition home or self-care (01) | DRG 65 ==
LOC: ED 12:28 → PCU 12:45
PROVIDERS: Admitting Provider Internal Medicine; Emergency Provider Emergency Medicine; PCP Nurse Practitioner Family; Visit Provider Internal Medicine
DX: I63.132 Cerebral infarction due to embolism of left carotid artery (principal); N13.8 Other obstructive and reflux uropathy; G81.91 Hemiplegia, unspecified affecting right dominant side; E11.9 Type 2 diabetes mellitus without complications; I10 Essential (primary) hypertension; Z68.32 Body mass index [BMI] 32.0-32.9, adult; I48.0 Paroxysmal atrial fibrillation; E78.5 Hyperlipidemia, unspecified; K21.9 Gastro-esophageal reflux disease without esophagitis; Z79.4 Long term (current) use of insulin; I25.10 Atherosclerotic heart disease of native coronary artery without angina pectoris; R29.705 NIHSS score 5; E66.811 Obesity, class 1; N40.1 Benign prostatic hyperplasia with lower urinary tract symptoms; R47.81 Slurred speech; R29.810 Facial weakness; R47.1 Dysarthria and anarthria; Z79.01 Long term (current) use of anticoagulants; Z79.82 Long term (current) use of aspirin; Z79.84 Long term (current) use of oral hypoglycemic drugs; Z79.899 Other long term (current) drug therapy; Z87.891 Personal history of nicotine dependence; Z86.73 Personal history of transient ischemic attack (TIA), and cerebral infarction without residual deficits
CPT/HCPCS: 36415; 70496; 70498; 70551; 78452; 80048; 80061; 82962; 83036; 83735; 84100; 84443; 84484; 85025; 85610; 85730; 92610; 93005; 93017; 93306; 93880; 94762; 97116; 97162; 97166; 97530; 97535; 97802; 99285; A9500; Q9957; Q9967; A4216; C8929; J2785

== ENCOUNTER 2024-09-20 11:06 | Inpatient (IN) | payer MEDICARE, SELFPAY ==
--- NOTE | 2024-09-16 20:15 | PAT.ANE_ITS ---
Pre-Assessment Diagnosis/Proposed Procedure Planned Operative Procedure(s): LEFT CAROTID ENDARTERECTOMY Anesthesia History Anesthesia History - coroner forensic technician: Anesthesia History - coroner forensic technician Hx Hospitalization Yes: CVA 08/202409/16/24 15:14 Any Problems With Anesthesia No 09/16/24 15:14 Cholinesterase deficiency No 09/16/24 15:14 You/Your Family Experience No 09/16/24 15:14 fever (hyperthermia) with Relationship Recent Exposure to Contagious Disease Does patient have nerve No 09/16/24 15:14 stimulator Patient instructed to have device shut off --Does patient have Pacemaker or ICD? When Was Last Pacemaker Check QUESTION #4 FULL TEXT: You/Your Family Experience fever (hyperthermia) with Anesthesia Last Oral Intake Last Oral intake: Last Oral Intake NPO since Meds taken in AM with sips of water? Meds patient instructed to take am of surgery PONV PONV - coroner forensic technician: PONV - coroner forensic technician Female No 09/16/24 15:14 HX of Motion Sickness No 09/16/24 15:14 HX of N/V After Surgery No 09/16/24 15:14 Non-Smoker Yes 09/16/24 15:14 Duration of Surgery greater Yes 09/16/24 15:14 than 60 minutes Number of Risk Factors 2 09/16/24 15:14 PONV Score Moderate Risk 09/16/24 15:14 Height & Weight Height & Weight: Anesthesia: Height & Weight Height 5 ft 10 in 09/14/24 14:20 Respiratory Assessment Respiratory Assessment - coroner forensic technician: Respiratory Tract Infection Hx - coroner forensic technician Hx Respiratory Tract Infection No 09/16/24 15:14 STOP Sleep Apnea STOP Sleep Apnea - coroner forensic technician: STOP Sleep Apnea - coroner forensic technician Hx Hypertension No 09/16/24 15:14 Hx Sleep Apnea Yes 09/16/24 15:14 CPAP Yes: NONCOMPLIANT 09/16/24 15:14 BIPAP No 09/16/24 15:14 Do you snore loudly (louder than talking or can be heard Do you often feel tired/ fatigued/ sleepy during daytime? Has anyone observed you stop breathing during sleep? STOP Results Positive 09/16/24 15:14 QUESTION #5 FULL TEXT : Do you snore loudly (louder than talking or can be heard through closed doors)? 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 Specify any problems Hx of Preganancy in last 3 N/A 09/16/24 15:14 Months Nurse Filling Out Transfusion DSCHRIBER 09/16/24 15:14 & Questions: Date: 09/16/24 09/16/24 15:14 Time: 15:15 09/16/24 15:14 Patient unable to answer at this time (ie. confused, unrespo /Reproduction History /Reproductive History - coroner forensic technician: /Reproductive Hx- coroner forensic technician Hx Now No 09/16/24 15:14 Gestational Age (in weeks): EDC: Hx Hx Para Hx Section SAB No 09/16/24 15:14 PFSH Medical History (Updated 09/16/24 @ 15:26 by Coco Cool) Right hand weakness Wears partial dentures Insulin dependent diabetes mellitus Prostate disease Bladder disease High cholesterol Back pain Dietary restriction Gastric reflux Shortness of breath on exertion History of Holter monitoring History of echocardiogram History of stress test Cardiology follow-up encounter Tachyarrhythmia Paroxysmal supraventricular tachycardia Paroxysmal atrial fibrillation Elevated coronary artery calcium score History of CVA (cerebrovascular accident) (07/03/20) Premature atrial contraction First degree AV block Premature ventricular contraction Cancer CPAP (continuous positive airway pressure) dependence Home Medications ?Medication ?Instructions ?Recorded ?Last Taken ?Type empagliflozin 25 mg tablet 25 mg PO DAILY DIABETES 04/2209/16/24 History (Jardiance) finasteride 5 mg tablet 5 mg PO DAILY PROSTATE 07/01 Unknown History insulin glargine 100 unit/mL (3 [address] diabetes 07/01/20 Unknown History mL) subcutaneous pen (Lantus Solostar U-100 Insulin) sitagliptin phosphate 50 1 tab PO DAILY DIABETES 04/22 Unknown History mg-metformin 1,000 mg tablet (Janumet) tamsulosin 0.4 mg capsule 0.4 mg PO QHS PROSTATE 07/01 Unknown History aspirin 81 mg chewable tablet 81 mg PO DAILY CVA 30 da ys #30 tabs 07/03/20 Unknown Rx apixaban 5 mg tablet (Eliquis) 5 mg PO BID blood 11/0809/13/24 07:00 History famotidine 20 mg tablet 20 mg PO DAILY PRN stomach 0 09/13/24 Unknown History insulin aspart U-100 100 unit/mL 10 unit subcut DAILY diabetes 09/13/24 Unknown History (3 mL) subcutaneous pen (Novolog FlexPen U-100 Insulin aspart) atorvastatin 80 mg tablet 80 mg PO QHS CHOLESTEROL #90 tabs 09/16/24 Unknown Rx Allergy/AdvReac Type Severity Reaction Status Date / Time No Known Allergies Allergy Verified 09/16/24 15:00 Family History Other CVA (cerebral vascular accident) Surgical History (Updated 09/16/24 @ 15:25 by Coco Cool) Hx of left cataract extraction Hx of right cataract extraction Hx of colonoscopy Hx of knee surgery H/O: knee surgery History of appendectomy Social History adopted: No household members: spouse housing: house number of children: 3 current occupational status: retired pets and animals: Yes leisure activities: exercise, games, hunting and fishing history of recent travel: No sexually active: Yes Smoking Status: Never smoker diet: low carbohydrate well-balanced diet: daily or most days caffeine: Yes eating out: 1-3 times/week during the past year weight has: remained stable what type of physical activity do you participate in: walking Audit: Pertinent Findings Pertinent Findings EKG Perinent findings: September 13, 2024. Sinus rhythm with first-degree AV block. Otherwise normal EKG. Stress test pertinent findings: September 15, 2024. EF of 72%. Rest and stress nuclear imaging demonstrated relatively uniform tracer uptake and myocardial perfusion appearing within normal limits. Echo (EF%) pertinent findings: September 13, 2024. EF of 60 to 65%. PASP is 25 mmHg. No aortic stenosis. Consult pertinent findings: November 08, 2020. Dr. Head. 1. Paroxysmal atrial fibrillation-suspected. Currently on anticoagulant. Rate and rhythm appears to be controlled overall at this time. Patient may not need rate limiting medications. To. Elevated coronary artery calcium score?chronic- plan for nuclear stress test. 3. History of stroke?chronic-patient states he has recovered from this event. Additional pertinent findings: July 03, 2020. Holter monitor. Predominant rhythm is normal sinus rhythm with frequent episodes of sinus arrhythmia. Ventricular ectopic beats comprised of 1.4% of the total complexes. Supraventricular ectopic beats were 0.1% of total complexes. No atrial fibrillation was noted. Patient did not keep a diary. Recommendation Anesthesia Recommendation Anesthesia recommendation: OPTIMIZED for anesthesia
[2024-09-19 21:00] VITALS: BP 109/59; PULSE 46; RESP 17; O2SAT 94
[2024-09-20] VITALS (23 sets, daily range): BP systolic 74–126; BP diastolic 35–86; PULSE 42–80; RESP 12–20; TEMP 36.1–36.7; O2SAT 89–100; BMI 30.3; BMI 30.7
[2024-09-20] MEDS: Lactated Ringers 1,000 ML 15 ML IV (06:32)
--- NOTE | 2024-09-20 06:46 | PCM.PRE.AN2 ---
ASA Classification* ASA Classification ASA Classification: 3 Assessment & Plan Anesthesia* Anesthesia Assessment Anesthesia Assessment: Discussed sedation and/or anesthesia options, risks, benefits, and alternatives with patient/parents/legal guardian/POA. Questions invited. The patient/parents/legal guardian/POA seems to understand and agrees to proceed with anesthesia plan. Reviewed the physical assessment, medical history, allergy history and patient home medications list prior to surgery/procedure/anesthetic and documented any changes. Performed airway and anesthesia risk assessments. Anesthesia Type Anesthesia Type: General History Source History Obtained from:: Patient and Chart Anesthesia Focused Assessment* Temperature: 97.2 F Pulse Rate: 65 Blood Pressure: 126/79 Respiratory Rate: 18 Pulse Ox: 95 Airway Assessment Mouth opens: >3 cm Mallampati Score: III Labs Anesthesia Preop lab: CBC WBC 7.5 K/mm3 (4.4-11.0) 09/16/24 06:23 09/16/24 RBC 5.18 M/mm3 (4.6-6.2) 09/16/24 06:23 09/16/24 Hgb 15.3 g/dL (13.0-16.5) 09/16/24 06:23 09/16/24 Hct 45.0 % (40-54) 09/16/24 06:23 09/16/24 Plt Count 181 K/mm3 (150-450) 09/16/24 06:23 09/16/24 CHEMISTRY Potassium 4.1 mmol/L (3.3-5.1) 09/16/24 06:23 09/16/24 Sodium 138 mmol/L (133-145) 09/16/24 06:23 09/16/24 Magnesium 2.2 mg/dL (1.5-2.2) 09/14/24 05:16 09/14/24 Phosphorus 3.4 mg/dL (2.7-4.5) 09/14/24 05:16 09/14/24 BUN 11 mg/dL (4-19) 09/16/24 06:23 09/16/24 Creatinine 0.87 mg/dL (0.70-1.20) 09/16/24 06:23 09/16/24 Glucose 209 mg/dL (70-99) H 09/16/24 06:23 09/16/24 POC Glucose 178 mg/dL (74-106) H 09/16/24 11:28 09/16/24 TSH 1.910 uIU/mL (0.300-4.200) 09/14/24 05:16 09/14/24 COAG PT 15.1 SECONDS (11.7-14.9) H 09/13/24 09:28 09/13/24 Pre-Assessment Diagnosis/Proposed Procedure Planned Operative Procedure(s): LEFT CAROTID ENDARTERECTOMY Anesthesia History 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 When Was Last Pacemaker Check QUESTION #4 FULL TEXT: You/Your Family Experience fever (hyperthermia) with Anesthesia Last Oral Intake Last Oral intake: Last Oral Intake NPO since 23:00 09/20/24 06:09 Meds taken in AM with sips of Yes 09/20/24 06:09 water? Meds patient instructed to take am of surgery PONV PONV - farm equipment mechanic: PONV - farm equipment mechanic Female No 09/16/24 15:14 HX of Motion Sickness No 09/16/24 15:14 HX of N/V After Surgery No 09/16/24 15:14 Non-Smoker Yes 09/16/24 15:14 Duration of Surgery greater Yes 09/16/24 15:14 than 60 minutes Number of Risk Factors 2 09/16/24 15:14 PONV Score Moderate Risk 09/16/24 15:14 Height & Weight Height & Weight: Anesthesia: Height & Weight Height 5 ft 10 in 09/20/24 06:09 Weight: 95.799 kg 09/20/24 06:09 Body Mass Index (BMI) 30.3 09/20/24 06:09 Respiratory Assessment Respiratory Assessment - farm equipment mechanic: Respiratory Tract Infection Hx - farm equipment mechanic Hx Respiratory Tract Infection No 09/16/24 15:14 STOP Sleep Apnea STOP Sleep Apnea - farm equipment mechanic: STOP Sleep Apnea - farm equipment mechanic Hx Hypertension No 09/16/24 15:14 Hx Sleep Apnea Yes 09/16/24 15:14 CPAP Yes: NONCOMPLIANT 09/16/24 15:14 BIPAP No 09/16/24 15:14 Do you snore loudly (louder than talking or can be heard Do you often feel tired/ fatigued/ sleepy during daytime? Has anyone observed you stop breathing during sleep? STOP Results Positive 09/16/24 15:14 QUESTION #5 FULL TEXT : Do you snore loudly (louder than talking or can be heard through closed doors)? 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 Specify any problems Hx of Preganancy in last 3 N/A 09/16/24 15:14 Months Nurse Filling Out Transfusion DSCHRIBER 09/16/24 15:14 & Questions: Date: 09/16/24 09/16/24 15:14 Time: 15:15 09/16/24 15:14 Patient unable to answer at this time (ie. confused, unrespo /Reproduction History /Reproductive History - farm equipment mechanic: /Reproductive Hx- farm equipment mechanic Hx Now No 09/16/24 15:14 Gestational Age (in weeks): EDC: Hx Hx Para Hx Section SAB No 09/16/24 15:14 Active Medications Active Medications: Current Medications Generic Name Dose Route Start Last Admin Trade Name Freq PRN Reason Stop Dose Admin Lactated Ringer's 1,000 mls @ 15 mls/hr 09/20/24 05:45 09/20/24 06:32 IV 15 mls/hr .Q48H SILAS Administration PFSH Medical History (Updated 09/16/24 @ 15:26 by Coco Cool) Right hand weakness Wears partial dentures Insulin dependent diabetes mellitus Prostate disease Bladder disease High cholesterol Back pain Dietary restriction Gastric reflux Shortness of breath on exertion History of Holter monitoring History of echocardiogram History of stress test Cardiology follow-up encounter Tachyarrhythmia Paroxysmal supraventricular tachycardia Paroxysmal atrial fibrillation Elevated coronary artery calcium score History of CVA (cerebrovascular accident) (07/03/20) Premature atrial contraction First degree AV block Premature ventricular contraction Cancer CPAP (continuous positive airway pressure) dependence Home Medications ?Medication ?Instructions ?Recorded ?Last Taken ?Type empagliflozin 25 mg tablet 25 mg PO DAILY DIABETES 07/01/20 09/16/24 History (Jardiance) finasteride 5 mg tablet 5 mg PO DAILY PROSTATE 07/01/20 09/20/24 03:00 History insulin glargine 100 unit/mL (3 15 unit subcut BREAKFAST diabetes 07/01/20 09/19/24 History mL) subcutaneous pen (Lantus Solostar U-100 Insulin) sitagliptin phosphate 50 1 tab PO DAILY DIABETES 07/01/20 09/19/24 History mg-metformin 1,000 mg tablet (Janumet) tamsulosin 0.4 mg capsule 0.4 mg PO QHS PROSTATE 07/01/20 09/19/24 18:00 History aspirin 81 mg chewable tablet 81 mg PO DAILY CVA 30 days #30 tabs 07/03/20 09/19/24 Rx apixaban 5 mg tablet (Eliquis) 5 mg PO BID blood 11/08/20 09/19/24 History famotidine 20 mg tablet 20 mg PO DAILY PRN stomach 09/13/24 09/20/24 03:00 History insulin aspart U-100 100 unit/mL 10 unit subcut DAILY diabetes 09/13/24 09/19/24 History (3 mL) subcutaneous pen (Novolog FlexPen U-100 Insulin aspart) atorvastatin 80 mg tablet 80 mg PO QHS CHOLESTEROL #90 tabs 09/16/24 09/19/24 Rx Allergy/AdvReac Type Severity Reaction Status Date / Time No Known Allergies Allergy Verified 09/20/24 06:02 Family History Other CVA (cerebral vascular accident) Surgical History (Updated 09/16/24 @ 15:25 by Coco Cool) Hx of left cataract extraction Hx of right cataract extraction Hx of colonoscopy Hx of knee surgery H/O: knee surgery History of appendectomy Social History adopted: No household members: spouse housing: house number of children: 3 current occupational status: retired pets and animals: Yes leisure activities: exercise, games, hunting and fishing history of recent travel: No sexually active: Yes Smoking Status: Never smoker diet: low carbohydrate well-balanced diet: daily or most days caffeine: Yes eating out: 1-3 times/week during the past year weight has: remained stable what type of physical activity do you participate in: walking Review of Systems (Anesthesia) ROS Narrative System reviewed and no additional complaints, except as documented. Constitutional Constitutional: Reports systems reviewed and no addt'l complaints, except as documented and as per HPI Physical Exam Const alert and oriented x3 General Appearance: cooperative Orientation / Consciousness: awake Neck full ROM Resp normal respiratory effort Effort and Inspection: able to speak in complete sentences
--- NOTE | 2024-09-20 07:30 | PLAQ_PTH ---
PATIENT: CHASITY MCKEON LOC: ICU U#:[id number] AGE/SX: 78/M ROOM: [place] [address] RE09/20/[address]: Dr. Cooper Figueroa MD : 1945 BED: 1 DIS: 09/21/2024 SPEC #: [id number] RECD: 09/20/24 11:48 STATUS: KHOA REQ #: [id number] MABEL: 09/20/24 07:[address]: Cooper Figueroa DEPT: SURGICAL PATHOLOGY RECD BY: Stew Bueno ENTERED: 09/20/24 14:33 SP TYPE: PLAQUE OTHR DR: Betsey Cortez, MERCHANT BANKER-C Tissues: A - PLAQUE Procedures: Decalcification bone/plaque Surgery Specimen Level III HEADER OPERATION: Left carotid endarterectomy PRE-OP DIAGNOSIS: Left carotid stenosis, cerebral vascular accident TISSUE SUBMITTED: A- Left carotid plaque MICROSCOPIC DIAGNOSIS A. Left carotid artery, endarterectomy: - Fibrointimal hyperplasia with calcification, consistent with atherosclerotic plaque. GROSS DESCRIPTION A. Received in formalin labeled with the patient's name and date of . Designated as left carotid plaque is a best-yellow calcified plaque in 2 pieces, collectively measuring 5.2 x 1.8 x 0.8 cm. Marking Stitcher sections are submitted in 1 cassette, following decalcification. [place] 09/20/2024 CPT:31664,65966
--- NOTE | 2024-09-20 07:32 | HP.PCM_ITS ---
History and Physical Assessment & Plan Assessment/Plan (1) Left carotid stenosis: (2) CVA (cerebral vascular accident): PLAN: Plan Reviewed CTA images; severe L ICA stenosis which is at threshold for surgical intervention. Left CEA HPI Consult Data Date of Consult: 09/14/24 HPI Narrative HPI Narrative: CHASITY MCKEON, is a 78 M who presented to the [facility] ER 09/13/24 with a 4 day history of right-sided weakness/numbness, slurred speech, and slight facial droop. He was admitted for further workup. Given his duration of symptoms tPA not administered. He had Head/Neck CTA demonstrating severe L carotid disease for which we are consulted. He had Brain MRI which showed multiple infarcts in the L frontal, parietal, and occipital lobes consistent with embolic shower. He was on Eliquis (though not taking consistently by report), ASA, and statin at home. He is chronically anticoagulated for paroxysmal Afib. On my exam, he is eating dinner. He reports that he is feeling a bit better than when he arrived, feels he is talking more easily and that the numbness/paresthesias in his R side are improving though he still has weakness. He answers all questions appropriately and I do not appreciate any significant slurring of speech. He does have a history of prior stroke in 2020, he had R upper extremity weakness/numbness/paresthesias and was treated with tPA with resolution of his symptoms at that time. Holter monitor placed following that CVA is what identified his paroxysmal Afib. He had Head/Neck CTA at that time as well which demonstrated moderate L ICA stenosis. He denies any history of prior carotid intervention, radiation to the Head/Neck, prior cervical spine surgery. [facility] Medical History Tachyarrhythmia Paroxysmal supraventricular tachycardia Paroxysmal atrial fibrillation Elevated coronary artery calcium score History of CVA (cerebrovascular accident) (07/03/20) Premature atrial contraction First degree AV block Premature ventricular contraction Cancer Diabetes GERD (gastroesophageal reflux disease) CPAP (continuous positive airway pressure) dependence Sleep apnea Home Medications ?Medication ?Instructions ?Recorded ?Last Taken ?Type empagliflozin 25 mg tablet 25 mg PO DAILY 07/01/20 Unknown History (Jardiance) finasteride 5 mg tablet 5 mg PO DINNER 07/01/20 Unknown History insulin glargine 100 unit/mL (3 15 unit subcut BREAKFAST diabetes Unknown History mL) subcutaneous pen (Lantus Solostar U-100 Insulin) sitagliptin phosphate 50 50 - 1,000 tab PO DAILY 07/01/20 Unknown History mg-metformin 1,000 mg tablet (Janumet) tamsulosin 0.4 mg capsule 0.4 mg PO DINNER 07/01/20 Unknown Histor y aspirin 81 mg chewable tablet 81 mg PO DAILY CVA 30 days #30 tabs 06/20 Unknown Rx atorvastatin 40 mg tablet 40 mg PO QHS cholesterol 30 days 1 Unknown Rx #30 tabs apixaban 5 mg tablet (Eliquis) 5 mg PO BID blood 11/08/20 09/13/24 07:0 0 History famotidine 20 mg tablet 20 mg PO DAILY PRN stomach 09/13/24 Unkn own History insulin aspart U-100 100 unit/mL 10 unit subcut DAILY diabetes 09/13/24 U nknown History (3 mL) subcutaneous pen (Novolog FlexPen U-100 Insulin aspart) Allergy/AdvReac Type Severity Reaction Status Date / Time No Known Allergies Allergy Verified 11/08/20 08:10 Family History Other CVA (cerebral vascular accident) Surgical History H/O: knee surgery History of appendectomy Social History adopted: No household members: spouse housing: house number of children: 3 current occupational status: retired pets and animals: Yes leisure activities: exercise, games, hunting and fishing history of recent travel: No sexually active: Yes Smoking Status: Former smoker diet: low carbohydrate well-balanced diet: daily or most days caffeine: Yes eating out: 1-3 times/week during the past year weight has: remained stable what type of physical activity do you participate in: walking Physical Exam Const alert, oriented x3 and no apparent distress General Appearance: cooperative HEENT normocephalic, head/scalp atraumatic and external nose normal Eyes EOMs intact bilaterally General Eye: normal appearance of both eyes Neck full ROM General: normal visual inspection Resp normal respiratory effort and no retractions Effort and Inspection: able to speak in complete sentences Cardio Rate: regular rate Rhythm: regular rhythm Skin no rashes or lesions noted Neuro Neuro Narrative: Mild RUE and RLE weakness, very slight facial droop Psych mental status grossly normal Appearance: grossly normal Lab / Micro Data 09/14/24 05:16 09/14/24 05:16 Labs: Laboratory Results - last 24 hr 09/13/24 09:28: WBC 7.7, RBC 4.87, Hgb 14.4, Hct 42.8, MCV 87.9, MCH 29.6, MCHC 33.6, RDW Std Deviation 42.8, RDW Coeff of Rosa Maria 13.2, Plt Count 194, MPV 9.6, Immature Gran % (Auto) 0.500, Neut % (Auto) 78.7 H, Lymph % (Auto) 12.7 L, [place] % (Auto) 6.1, Eos % (Auto) 1.2, Baso % (Auto) 0.8, Absolute Neuts (auto) 6.1, Absolute Lymphs (auto) 0.98, Nucleated RBC % 0, PT 15.1 H, INR 1.2, APTT 29.7, Sodium 136, Potassium 4.2, Chloride 100, Carbon Dioxide 23.7, Anion Gap 12, BUN 14, Creatinine 0.94, Estim Creat Clear Calc 74.37, Est GFR (MDRD) Non-Af 83, BUN/Creatinine Ratio 14.8, Glucose 155 H, Calcium 9.3, Troponin T High Sens 13 09/13/24 16:28: POC Glucose 148 H Imaging Radiology Impression Head/Neck CTA 09/13/24 09:18 IMPRESSION: There is a 99% stenosis in the proximal left ICA. The left vertebral is dominant. The right vertebral terminates in the PICA.
[2024-09-20 10:37] LABS: ACT Activated Clotting Time 274 sec (74-137)
[2024-09-20 10:37] LABS: ACT Activated Clotting Time 124 sec (74-137)
[2024-09-20 10:37] LABS: ACT Activated Clotting Time 227 sec (74-137)
--- NOTE | 2024-09-20 11:13 | OP.PCM_ITS ---
Operative Report (Standard) Operative Information Date of Procedure: 09/20/24 Pre-Operative Diagnosis: symptomatic left carotid stenosis Post-Operative Diagnosis: same Surgery/Procedure Performed: left carotid endarterectomy children's tutor: Yes Want Ad Clerk: Ct Serrato Tasks completed by entry level administrative assistant: Opening, Closing, Opening & closing, Hemostasis: Tie, Hemostasis: Electrocautery and Retracting Type of Anesthesia: General RN Documented Start/Stop Times: Operation Date: 09/20/24 07:30 Case Time Into Pre-Op 09/20/24 05:36 Anesthesia Start 09/20/24 07:45 Into Room 09/20/24 07:45 Procedure Start 09/20/24 08:19 Procedure End 09/20/24 11:16 Anesthesia End 09/20/24 11:28 Out of Room 09/20/24 11:28 Into Recovery 09/20/24 11:43 Out of Recovery 09/20/24 12:44 Out of Pre-Op Procedure Start Time: 08:20 Procedure Stop Time: 11:15 Select all DRAINS/GRAFTS/IMPLANTS that apply: Graft Graft details: bovine pericardial patch Estimated Blood Loss: 18 Specimen collected: Yes Description of specimen(s) removed: plaque Description of surgery: HPI: Patient is a 78-year-old male who recently suffered a left hemispheric ischemic stroke. He was found to have severe internal carotid artery stenosis that was most appropriate for treatment with endarterectomy. He is taken now for carotid endarterectomy for stroke recurrence risk reduction. Description of procedure: Upon obtaining informed consent and verification correct patient procedure site the patient was taken to the operating room was placed under general anesthesia. He was then positioned prepped and draped in usual sterile fashion and timeout was performed. Oblique incision was made along the anterior border sternocleidomastoid and Bovie electrocautery used to dissect down through subcutaneous tissue to the level of the platysma. The platysma was divided and self-retaining retractors put in position with further dissection carried down to the sternocleidomastoid. This was dissected free along the anterior border along posterolateral retraction and exposing the carotid sheath. Sharp dissection was then used to dissect the anterior surface of the jugular vein with the facial vein and other accessory branches ligated with silk ties and divided. The jugular vein was then retracted laterally exposing the carotid vessels. Sharp dissection was used to dissect down to the proximal common carotid artery with care taken to identify and protect the vagus nerve. A writing was used to place a vessel loop proximally and the patient was then heparinized allowed to circulate for 3 minutes with subsequent heparin dosing based on ACT results. Sharp dissection was then used to dissect the internal carotid artery distal to the palpable and visible plaque which of note was significantly longer in an higher location than typical carotid lesions. Care was taken to identify and protect the hypoglossal nerve which had to be mobilized significantly in order to obtain adequate visualization. A right ankle was used to place a vessel distally on the internal carotid artery and finally the external carotid artery was dissected free and a right angle used to place a vessel loop. Vessels were then occluded first the internal followed by the common and external. A longitudinal arteriotomy was created with 11 blade on the distal common carotid artery and extended with Croft scissors onto the internal carotid artery beyond the plaque. A 10 Libyan Dundee shunt was then placed first distally in the internal carotid artery and allowed to backbleed before placing approximately common carotid artery. The shunt was then interrogated Doppler found with patent low resistance signal. We then performed our endarterectomy with a freer elevator with satisfactory endpoint distally onto the internal carotid artery and eversion endarterectomy of the external carotid artery. The lumen was then flushed with heparinized saline to clear debris and the distal endpoint tacked with 7-0 Prolene interrupted sutures. A bovine pericardial patch was then brought on to the field and secured in position with a 6-0 Prolene in a running fashion. Prior to completing the suture line the shunt was withdrawn and the vessel was backbled. After completing a suture line the internal carotid artery was allowed to backbleed into the bifurcation and then reoccluded at the origin. Clamps were then removed from the external and the common carotid artery allowing 10 heartbeats of antegrade flow to flush into the external carotid artery before reestablish ing flow into the internal carotid artery. After clamps were released satisfactory hemostasis was observed and the heparin was then reversed with protamine. There was some moderate amount of ooze from connective tissue and adjacent nerve structures so Vistaseal topical hemostatic was applied. The incision was then inspected for hemostasis and a 19 Libyan channel EVAN placed via separate stab incision. The incision was then closed with 2-0 Vicryl, 3-0 Vicryl, 4-0 Monocryl and Dermabond for the skin. A dry sterile dressing was applied the patient was awake from anesthesia moving all extremities to command with cranial nerves intact. He was then taken recovery room with anticipated mission to the intensive care unit for hemodynamic and neurologic monitoring. Surgical Findings: CN intact, motor intact/symmetrical Complications Complications: No
--- NOTE | 2024-09-20 11:39 | PCM.POST.ANE ---
Anesthesia: Postop Eval I Current Vital Signs Temperature: 97.0 F Pulse Rate: 74 Blood Pressure: 110/42 Respiratory Rate: 20 Pulse Ox: 97 Oxygen Delivery Method: Nasal Cannula Oxygen Flow Rate (L/min): 4 Assessment Airway patent: No Spontaneous unlabored respirations: No Mental status: Awake and Confused nausea: No Vomiting: No Anesthesia Complication: No Fluid Hydration Crystalloid volume administer (ml): 1,900 Total IV fluid infused: 1,900 Progress Note Anesthesia document: Postop Eval 1 completed: Yes
--- NOTE | 2024-09-20 13:40 | CASEMGMT ---
Addendum entered by Indira Hidalgo 09/20/24 13:43: Correction Index: . Dx: Acute CVA Original Note: ISHAAN PRITCHETT Readmission Chart Review Index: . Dx: Acute CVS Current: 09/20/24. Dx: Left Carotid Endarterectomy From the index admission, the patient was discharged home with his with outpatient therapy, set up through [email or web address]. Per chart review, the initial plan during the index admission was for the patient to go to the rehab unit. However, the insurance declined the patient, and the hospitalist declined a [id number] and stated that the patient was OK for discharge home. The patient was also set up with a walker. Before departure from the index mission, the patient was set up for a left endarterectomy with Dr. Figueroa at the end of the month. ISHAAN PRITCHETT to the patient room at this time. Patient?s at bedside. Patient and patient?s stated that there was a cancellation, therefore the patient was able to be seen by Dr. Figueroa for the left carotid endarterectomy sooner than initially scheduled. While the patient was at home, he states that he was able to take his increased dose of atorvastatin. The patient also states he was taking his other prescription medications. Per chart review (H&P), the pt last took Eliquis on 09/13. The patient states that he has a continuous blood glucose monitor to check his blood sugar levels. Patient states that he has sufficient pen needles to take insulin shots. Patient also states that he has a backup glucometer to check his blood sugar levels if needed. The patient states that he has a follow-up appointment with his PCP scheduled for tomorrow at 1400. Encouraged the patient?s to call the PCP office to let them know that the patient is currently in the ICU after surgery. Patient's agrees. Moving forward, the patient plans to return home with his once medically ready for discharge. Patient is currently on room air. There is no 6-click score entered. Physical therapy is ordered pending. The patient declines the need for home healthcare at this time and states that he feels safe returning home with his and plans to go to [facility] for outpatient therapy. Patient currently denies any further questions or concerns. Care management to follow. Abhijit HIDALGO RN, CM
[2024-09-20] MEDS: Cefazolin 1 GM/50 ML BAG IV ×2 (15:18→23:46)
[2024-09-20] MEDS: BENZOCAINE/MENTHOL 1 LOZENGE MUCOUS MEM (22:22)
[2024-09-20] MEDS: Norepinephrine 8 MG in 0.9% Normal Saline (250mL Bag) 242 ML 9.4 MG CONT INF (23:46)
[2024-09-20] MEDS: TITRATION PARAMETER CHANGE 1 EACH IV (23:51)
--- NOTE | 2024-09-20 23:59 | EKG12_ITS ---
Test Reason : bradycardia Blood Pressure : */* mmHG Vent. Rate : 53 BPM Atrial Rate : 53 BPM P-R Int : 234 ms QRS Dur : 90 ms QT Int : 492 ms P-R-T Axes : 79 61 50 degrees QTcB Int : 461 ms Sinus bradycardia with 1st degree A-V block with frequent Premature ventricular complexes in a pattern of bigeminy Nonspecific T wave abnormality Abnormal ECG When compared with ECG of 20-Sep-2024 23:59, MANUAL COMPARISON REQUIRED DATA IS UNCONFIRMED Confirmed by Enio Nieto ([id number]), editor farm journal DORINA RODRIGUEZ ([id number]) on 09/22/2024 11:33:20 AM Referred By: Cooper Figueroa Confirmed By: Enio Nieto
[2024-09-21] VITALS (26 sets, daily range): BP systolic 74–168; BP diastolic 33–102; PULSE 40–75; RESP 12–20; TEMP 36.4; O2SAT 90–98; BMI 30.6
--- NOTE | 2024-09-21 | EKG12_ITS ---
Test Reason : bradycardia Blood Pressure : */* mmHG Vent. Rate : 39 BPM Atrial Rate : 39 BPM P-R Int : 234 ms QRS Dur : 94 ms QT Int : 462 ms P-R-T Axes : 35 59 42 degrees QTcB Int : 371 ms Critical Test Result: Low HR Marked sinus bradycardia with 1st degree A-V block Nonspecific T wave abnormality Abnormal ECG When compared with ECG of 13-Sep-2024 09:27, Vent. rate has decreased by 25 bpm Confirmed by Enio Nieto ([id number]), development editor DORINA RODRIGUEZ ([id number]) on 09/22/2024 11:33:12 AM Referred By: Cooper Figueroa Confirmed By: Enio Nieto
[2024-09-21 06:30] LABS: Hematocrit 39.2 % (40-54); Hemoglobin 12.9 g/dL (13.0-16.5); Immature Granulocytes Count 0.030 X10^3/uL (0.0-0.0); Mean Corp Hgb Conc 32.9 g/dL (32-36); Mean Corpuscular Volume 88.9 fL (80-94); Mean Platelet Vol. 10.0 fl (6.2-12.0); NRBC Flagged by Analyzer 0 % (0-5); Platelet Count 157 K/mm3 (150-450); RBC Distribution Width CV 13.3 % (11.6-14.6); RBC Distribution Width SD 43.8 fl (35.1-43.9); Red Blood Count 4.41 M/mm3 (4.6-6.2); White Blood Count 8.7 K/mm3 (4.4-11.0)
[2024-09-21 07:43] LABS: ACT Activated Clotting Time 227 sec (74-137)
--- NOTE | 2024-09-21 08:05 | PN.SURG_ITS ---
Subjective Subjective Mr. Hidalgo was sitting up in the bedside chair this morning on my exam. He reports to feeling well, he denies any significant pain. He denies any headaches, new weakness/numbness/paresthesias, vision changes. He reports he was up and walking the halls last night, he felt steady and did not have any lightheadedness. He had a normal dinner last night and tolerated it well. He has had low HRs in the 40s since surgery, he reports this is normal for him at home as well. His blood pressures were intermittently low overnight but this morning 100-110s and this is usual for him as well. He required just a couple hours of levophed support but was quickly weaned and has been maintaining good pressures/MAP since. He has had moderate, reducing output from the EVAN drain. Objective Data Objective Data Vital Signs: Vital Signs Temp Pulse Resp BP Pulse Ox O2 Del Method O2 Flow Rate 97.6 F L 52 L 17 102/48 L 97 Room Air 3 09/21/24 04:00 09/21/24 07:00 09/21/24 07:00 09/21/24 07:00 09/21/24 07:00 09/21/24 07:00 09/21/24 04:00 Oxygen Flow Rate (L/min) 3 Oxygen Delivery Method Room Air Weight: 213 lb 13.574 oz Body Mass Index (BMI) 30.6 Intake & Output: Intake and Output for Last 24 Hours 09/19/24 09/20/24 09/21/24 23:59 23:59 23:59 Intake Total 2154.5 / 2156.69 79.09 / 79.09 Output Total 2953 / 3353 2380 / 2380 Balance -798.5 / -1196.31 -2300.91 / -2300.91 Lab / Micro Data 09/21/24 06:20 Labs: Laboratory Results - last 24 hr 09/20/24 08:26: Activated Clotting Time 124 09/20/24 08:57: Activated Clotting Time 274 H 09/20/24 09:31: Activated Clotting Time 227 H 09/20/24 10:06: Activated Clotting Time 227 H 09/20/24 16:19: POC Glucose 178 H 09/21/24 05:45: WBC Cancelled, Corrected WBC Cancelled, RBC Cancelled, Hgb Cancelled, Hct Cancelled, MCV Cancelled, MCH Cancelled, MCHC Cancelled, RDW Std Deviation Cancelled, RDW Coeff of Rosa Maria Cancelled, Plt Count Cancelled, MPV Cancelled, Immature Gran % (Auto) Cancelled, Neut % (Auto) Cancelled, Lymph % (Auto) Cancelled, [place] % (Auto) Cancelled, Eos % (Auto) Cancelled, Baso % (Auto) Cancelled, Absolute Neuts (auto) Cancelled, Absolute Lymphs (auto) Cancelled, Total Counted Cancelled, Neutrophils % (Manual) Cancelled, Band Neutrophils % Cancelled, Lymphocytes % (Manual) Cancelled, Monocytes % (Manual) Cancelled, Eosinophils % (Manual) Cancelled, Basophils % (Manual) Cancelled, Metamyelocytes % Cancelled, Myelocytes % Cancelled, Promyelocytes % Cancelled, Blast Cells % Cancelled, Plasma Cell % (Manual) Cancelled, Other Cells % Cancelled, Nucleated RBC % Cancelled, Nucleated RBCs/100 WBC Cancelled, Differential Comment Cancelled, Diff Path Review Cancelled, Hypersegmented Neuts Cancelled, Atypical Lymphocytes Cancelled, Reactive Lymphocytes Cancelled, Smudge Cells Cancelled, Toxic Granulation Cancelled, Toxic Vacuolation Cancelled, Dohle Bodies Cancelled, Natasha Rods Cancelled, Platelet Estimate Cancelled, Plt Morphology Comment Cancelled, RBC Morphology Cancelled 09/21/24 05:45: RBC Morphology Cancelled, Polychromasia Cancelled, Hypochromasia Cancelled, Basophilic Stippling Cancelled, Anisocytosis Cancelled, Microcytosis Cancelled, Macrocytosis Cancelled, Spherocytes Cancelled, Sickle Cells Cancelled, Target Cells Cancelled, Tear Drop Cells Cancelled, Ovalocytes Cancelled, Stomatocytes Cancelled, [place] Bodies Cancelled, [place] Cells Cancelled, Bite Cells Cancelled, Crenated Cell Cancelled, Acanthocytes (Spur) Cancelled, Rouleaux Cancelled, Schistocytes Cancelled 09/21/24 06:20: WBC 8.7, RBC 4.41 L, Hgb 12.9 L, Hct 39.2 L, MCV 88.9, MCH 29.3, MCHC 32.9, RDW Std Deviation 43.8, RDW Coeff of Rosa Maria 13.3, Plt Count 157, MPV 10.0, Immature Gran % (Auto) 0.300, Neut % (Auto) 74.5 H, Lymph % (Auto) 14.5 L, [place] % (Auto) 9.5, Eos % (Auto) 0.7, Baso % (Auto) 0.5, Absolute Neuts (auto) 6.5, Absolute Lymphs (auto) 1.25, Nucleated RBC % 0 Physical Exam Const alert, oriented x3 and no apparent distress General Appearance: cooperative and comfortable HEENT normocephalic, head/scalp atraumatic, hearing grossly normal bilaterally, external ears normal and external nose normal Eyes General Eye: normal appearance of both eyes Neck Neck Narrative: L CEA incision site with dermabond intact, no dehiscence. No erythema or significant ecchymosis. Very mild swelling, soft and nontender to palpation. EVAN drain with scant serosanguineous drainage. Resp normal respiratory effort, normal air movement, no retractions and no use of accessory muscles Effort and Inspection: able to speak in complete sentences; Negative for labored, grunting or stridor Cardio regular rate and regular rhythm Extremity no clubbing, cyanosis or edema Skin no rashes or lesions noted Neuro oriented x3, CN's II-XII intact bilaterally, moves all extremities and no focal motor deficits Speech: speech normal Psych mental status grossly normal Appearance: grossly normal Attitude: calm and engaged Activity / Motor Behavior: appropriate eye contact Speech: normal speech Mood & Affect: euthymic mood Assessment & Plan Assessment/Plan (1) Left-sided carotid artery disease: PLAN: Plan He is POD#1 from L CEA. I removed the EVAN drain this morning, he tolerated it well. The incision site is satisfactory in appearance without hematoma. He has tolerated a normal diet, has been voiding to his baseline. His HR and BPs are improved this morning, still on the lower side but this is baseline for him; he is not having any lightheadedness or other symptoms. He has remained neurologically stable. Plan for him to ambulate again with nursing or PT this morning and then discharge to home later this morning if he tolerates well. Charges/Coding Procedures Integumentary [id number]: [id number] Global Visit
--- NOTE | 2024-09-21 08:13 | PCM.DC.SUM ---
Providers Date of Admission: 09/20/24 Primary Care Physician: Betsey Cortez NP-C Reason For Visit: Left Carotid Endarterectomy Diagnosis Discharge Diagnosis (1) Left-sided carotid artery disease: Status: Acute Code(s): I77.9 - Disorder of arteries and arterioles, unspecified Plan He is POD#1 from L CEA. I removed the EVAN drain this morning, he tolerated it well. The incision site is satisfactory in appearance without hematoma. He has tolerated a normal diet, has been voiding to his baseline. His HR and BPs are improved this morning, still on the lower side but this is baseline for him; he is not having any lightheadedness or other symptoms. He has remained neurologically stable. Plan for him to ambulate again with nursing or PT this morning and then discharge to home later this morning if he tolerates well. Medications at Discharge Home Medications empagliflozin 25 mg tablet (Jardiance) 25 mg PO DAILY DIABETES 07/01/20 finasteride 5 mg tablet 5 mg PO DAILY PROSTATE 07/01/20 insulin glargine 100 unit/mL (3 mL) subcutaneous pen (Lantus Solostar U-100 Insulin) 15 unit subcut BREAKFAST diabetes 07/01/20 sitagliptin phosphate 50 mg-metformin 1,000 mg tablet (Janumet) 1 tab PO DAILY DIABETES 07/01/20 tamsulosin 0.4 mg capsule 0.4 mg PO QHS PROSTATE 07/01/20 aspirin 81 mg chewable tablet 81 mg PO DAILY CVA 30 days #30 tabs 07/03/20 apixaban 5 mg tablet (Eliquis) 5 mg PO BID blood 11/08/20 Held on 09/21/24. Instructions: Resume on 09/22/24. famotidine 20 mg tablet 20 mg PO DAILY PRN stomach 09/13/24 insulin aspart U-100 100 unit/mL (3 mL) subcutaneous pen (Novolog FlexPen U-100 Insulin aspart) 10 unit subcut DAILY diabetes 09/13/24 atorvastatin 80 mg tablet 80 mg PO QHS CHOLESTEROL #90 tabs 09/16/24 acetaminophen 500 mg tablet 1,000 mg (2 x 500 mg) PO Q8 5 days #0 tabs 09/21/24 oxycodone 5 mg tablet 5 mg PO Q8H PRN PRN Pain Score 4-10 3 days #9 tabs 09/21/24 Hospital Course Operations - (L CEA) Summary of Care Provided Hospital Course: Mr. 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 The surgery was without complication and he tolerated it well. Postoperatively, he was admitted to the ICU for ongoing hemodynamic and neurologic monitoring. He has remained neurologically stable throughout; no signs of reperfusion syndrome. He has had low HR and BPs postoperatively, these have improved though remain on the lower side but this is his baseline at home by report. He has ambulated without difficulty and without any lightheadedness. He has tolerated a normal diet and has been voiding to his baseline. He has minimal pain at the surgical site. He is eager to go home. He is stable for discharge home today with his with planned outpatient follow-up in our office in 2-3 weeks and close outpatient follow-up with his PCP arranged as well. Physical Exam Const oriented x3 and no apparent distress General Appearance: cooperative and comfortable HEENT normocephalic, head/scalp atraumatic, hearing grossly normal bilaterally, external ears normal and external nose normal Eyes General Eye: normal appearance of both eyes Neck Neck Narrative: L CEA incision site with dermabond intact, no dehiscence. No erythema or significant ecchymosis. Very mild swelling, soft and nontender to palpation. EVAN drain with scant serosanguineous drainage. Resp normal respiratory effort Effort and Inspection: able to speak in complete sentences; Negative for labored, grunting or stridor Cardio regular rate and regular rhythm Extremity normal to inspection Skin no rashes or lesions noted Neuro oriented x3, CN's II-XII intact bilaterally, moves all extremities and no focal motor deficits Speech: speech normal Psych mental status grossly normal Appearance: grossly normal Attitude: calm and engaged Activity / Motor Behavior: appropriate eye contact Speech: normal speech Mood & Affect: euthymic mood Weight / BMI Weight Weight: 213 lb 13.574 oz Body Mass Index (BMI) 30.6 ABG / Lab / Microbiology Data 09/21/24 06:20 Laboratory: Laboratory Results - last 24 hr 09/20/24 08:26: Activated Clotting Time 124 09/20/24 08:57: Activated Clotting Time 274 H 09/20/24 09:31: Activated Clotting Time 227 H 09/20/24 10:06: Activated Clotting Time 227 H 09/20/24 16:19: POC Glucose 178 H 09/21/24 05:45: WBC Cancelled, Corrected WBC Cancelled, RBC Cancelled, Hgb Cancelled, Hct Cancelled, MCV Cancelled, MCH Cancelled, MCHC Cancelled, RDW Std Deviation Cancelled, RDW Coeff of Rosa Maria Cancelled, Plt Count Cancelled, MPV Cancelled, Immature Gran % (Auto) Cancelled, Neut % (Auto) Cancelled, Lymph % (Auto) Cancelled, [place] % (Auto) Cancelled, Eos % (Auto) Cancelled, Baso % (Auto) Cancelled, Absolute Neuts (auto) Cancelled, Absolute Lymphs (auto) Cancelled, Total Counted Cancelled, Neutrophils % (Manual) Cancelled, Band Neutrophils % Cancelled, Lymphocytes % (Manual) Cancelled, Monocytes % (Manual) Cancelled, Eosinophils % (Manual) Cancelled, Basophils % (Manual) Cancelled, Metamyelocytes % Cancelled, Myelocytes % Cancelled, Promyelocytes % Cancelled, Blast Cells % Cancelled, Plasma Cell % (Manual) Cancelled, Other Cells % Cancelled, Nucleated RBC % Cancelled, Nucleated RBCs/100 WBC Cancelled, Differential Comment Cancelled, Diff Path Review Cancelled, Hypersegmented Neuts Cancelled, Atypical Lymphocytes Cancelled, Reactive Lymphocytes Cancelled, Smudge Cells Cancelled, Toxic Granulation Cancelled, Toxic Vacuolation Cancelled, Dohle Bodies Cancelled, Natasha Rods Cancelled, Platelet Estimate Cancelled, Plt Morphology Comment Cancelled, RBC Morphology Cancelled 09/21/24 05:45: RBC Morphology Cancelled, Polychromasia Cancelled, Hypochromasia Cancelled, Basophilic Stippling Cancelled, Anisocytosis Cancelled, Microcytosis Cancelled, Macrocytosis Cancelled, Spherocytes Cancelled, Sickle Cells Cancelled, Target Cells Cancelled, Tear Drop Cells Cancelled, Ovalocytes Cancelled, Stomatocytes Cancelled, [place] Bodies Cancelled, [place] Cells Cancelled, Bite Cells Cancelled, Crenated Cell Cancelled, Acanthocytes (Spur) Cancelled, Rouleaux Cancelled, Schistocytes Cancelled 09/21/24 06:20: WBC 8.7, RBC 4.41 L, Hgb 12.9 L, Hct 39.2 L, MCV 88.9, MCH 29.3, MCHC 32.9, RDW Std Deviation 43.8, RDW Coeff of Rosa Maria 13.3, Plt Count 157, MPV 10.0, Immature Gran % (Auto) 0.300, Neut % (Auto) 74.5 H, Lymph % (Auto) 14.5 L, [place] % (Auto) 9.5, Eos % (Auto) 0.7, Baso % (Auto) 0.5, Absolute Neuts (auto) 6.5, Absolute Lymphs (auto) 1.25, Nucleated RBC % 0 D/C Instructions May shower in (days): 1 Weight Bearing Status: Weight bearing as tolerated Lifting Restricted to (Lbs): 20 Lifting Restrictions: Do not lift greater than 20 pounds for 3 weeks Call your doctor if your incision/area has: Sudden Increased Bleeding, Increased Pain/ Swelling and Foul Smelling Discharge Call your doctor if you observe: Fever of 101 or Higher and Uncontrolled pain Remove Dressing in: 1 day DC O2, CPAP, BIPAP Needs Home O2 Discharge instructions: No Additional Instructions: INCISION CARE: You have a small bandage on your neck over the site from which the surgical drain was removed. You may remove this bandage tomorrow. As long as there is no residual drainage, you may leave this open to air. If you do notice some continued drainage, you may re-cover with a Band-Aid. Your neck incision site is covered with skin glue which will continue to protect it. The skin glue will peel/flake off on its own over the next few weeks. Please do not pick at it. You may shower tomorrow. It is okay for soap and water to rinse over the incision site, pat to dry. Do not submerge the incision site in water such as to take a bath or go swimming etc. for 3 weeks. MEDICATION INSTRUCTIONS Restart your Eliquis tomorrow morning. You may continue to take all your other medications as usual. You have been prescribed oxycodone 5mg tablet to be taken by mouth every 8 hours as needed for pain. You may take this in addition to Tylenol as needed. You should not drive or operate machinery while taking this medication. Do not take this medication in combination with any other prescription pain medications. Call the office at [phone] with any questions about your medications ACTIVITY INSTRUCTIONS Do not lift greater than 20 pounds for 3 weeks. Otherwise, please continue with activity as tolerated. Do not drive until you can turn your head well enough to safely check your blind spots. FOLLOW-UP INSTRUCTIONS You are scheduled for follow-up in the office on 10/04/2024. If you need to change this appointment or have any other questions/concerns, please call the office at [phone]. Please Follow Up With: Camilla Brar PA When: 10/04/2024 Meaningful Use Info Meaningful Use Meaningful Use Diagnoses (Choose all that apply): None applicable Discharge Plan Admission Admit Date/Time: 09/20/24 05:06 Attending Provider: Cooper Figueroa Primary Care Provider: Betsey Cortez Instructions Additional Instructions / Restrictions: INCISION CARE: You have a small bandage on your neck over the site from which the surgical drain was removed. You may remove this bandage tomorrow. As long as there is no residual drainage, you may leave this open to air. If you do notice some continued drainage, you may re-cover with a Band-Aid. Your neck incision site is covered with skin glue which will continue to protect it. The skin glue will peel/flake off on its own over the next few weeks. Please do not pick at it. You may shower tomorrow. It is okay for soap and water to rinse over the incision site, pat to dry. Do not submerge the incision site in water such as to take a bath or go swimming etc. for 3 weeks. MEDICATION INSTRUCTIONS Restart your Eliquis tomorrow morning. You may continue to take all your other medications as usual. You have been prescribed oxycodone 5mg tablet to be taken by mouth every 8 hours as needed for pain. You may take this in addition to Tylenol as needed. You should not drive or operate machinery while taking this medication. Do not take this medication in combination with any other prescription pain medications. Call the office at [phone] with any questions about your medications ACTIVITY INSTRUCTIONS Do not lift greater than 20 pounds for 3 weeks. Otherwise, please continue with activity as tolerated. Do not drive until you can turn your head well enough to safely check your blind spots. FOLLOW-UP INSTRUCTIONS You are scheduled for follow-up in the office on 10/04/2024. If you need to change this appointment or have any other questions/concerns, please call the office at [phone]. Discharge Orders/Prescriptions Prescriptions: New acetaminophen 500 mg Tablet 1,000 mg PO Q8 5 Days Qty: 0 0RF oxycodone 5 mg Tablet 5 mg PO Q8H PRN PRN (Reason: Pain Score 4-10) 3 Days Qty: 9 0RF Continued tamsulosin 0.4 mg capsule 0.4 mg PO QHS finasteride 5 mg tablet 5 mg PO DAILY Janumet 50-1,000 mg tablet 1 tab PO DAILY insulin glargine [Lantus Solostar U-100 Insulin] 100 unit/mL (3 mL) insulin pen 15 unit SUBCUT BREAKFAST Jardiance 25 mg tablet 25 mg PO DAILY aspirin 81 mg Tablet,Chewable 81 mg PO DAILY 30 Days Qty: 30 0RF Patient Comments: non compliant ; per pt doesn't take everyday if takes the eliquis insulin aspart U-100 [Novolog FlexPen U-100 Insulin] 100 unit/mL (3 mL) insulin pen 10 unit subcut DAILY famotidine 20 mg tablet 20 mg PO DAILY PRN (Reason: stomach ) atorvastatin 80 mg Tablet 80 mg PO QHS Qty: 90 0RF Held Eliquis 5 mg tablet 5 mg PO BID Hold Instructions: Resume on 09/22/24. Patient Comments: not compliant; per pt not good at taking at taking evening dose Referrals / Follow Up: Betsey Cortez, BELLSTAFF-C [Primary Care Provider] - Disposition Disposition (needs filled in before D/C Order can be placed): Home, Self Care
[2024-09-21] MEDS: LINAGLIPTIN 5 MG TABLET PO (08:32)
--- NOTE | 2024-09-21 09:56 | CASEMGMT ---
Pt has an order for DC placed. Pt was able to ambulate the hallways independently/ standby with ICU staff. PT reports that evaluation in not warranted during ICU rounds. ISHAAN CM to the pt's room at this time. Pt states that he is ready for DC home today with his . Pt states that he plans to call [facility] to schedule his first OP Tx appt, as they have not called to schedule his appt yet as requesting during the previous admission. Pt made aware of the activity restrictions and recommendations given on the DC instructions. Pt states understanding. Pt plans to follow up with vascular as an OP as well. Pt states that he feel safe with this plan and denies any further questions, concerns, or needs.
--- NOTE | 2024-09-21 10:47 | PHA.DC.MC.R ---
Pharmacy [facility] Counseling Pharmacy Service has performed discharge medication reconciliation and counseling for this patient. 1. ACETAMINOPHEN 1000MG PO Q8 2. OXYCODONE 5MG PO Q8H PRN PAIN 3. RESUME ELIQUIS TOMORROW The patient's discharge medication list was reviewed for discrepancies and discrepancies were resolved. The patient was counseled on the following discharge medications and changes in medications for homegoing were reviewed. The Reason for Use, instructions for use, and potential side effects were reviewed for all new medications. The patient's questions regarding all of their medications were answered. The patient was able to verbally demonstrate an understanding of their discharge medications. Medications at Discharge Home Medications empagliflozin 25 mg tablet (Jardiance) 25 mg PO DAILY DIABETES 07/01/20 finasteride 5 mg tablet 5 mg PO DAILY PROSTATE 07/01/20 insulin glargine 100 unit/mL (3 mL) subcutaneous pen (Lantus Solostar U-100 Insulin) 15 unit subcut BREAKFAST diabetes 07/01/20 sitagliptin phosphate 50 mg-metformin 1,000 mg tablet (Janumet) 1 tab PO DAILY DIABETES 07/01/20 tamsulosin 0.4 mg capsule 0.4 mg PO QHS PROSTATE 07/01/20 aspirin 81 mg chewable tablet 81 mg PO DAILY CVA 30 days #30 tabs 07/03/20 apixaban 5 mg tablet (Eliquis) 5 mg PO BID blood 11/08/20 Held on 09/21/24. Instructions: Resume on 09/22/24. famotidine 20 mg tablet 20 mg PO DAILY PRN stomach 09/13/24 insulin aspart U-100 100 unit/mL (3 mL) subcutaneous pen (Novolog FlexPen U-100 Insulin aspart) 10 unit subcut DAILY diabetes 09/13/24 atorvastatin 80 mg tablet 80 mg PO QHS CHOLESTEROL #90 tabs 09/16/24 acetaminophen 500 mg tablet 1,000 mg (2 x 500 mg) PO Q8 5 days #0 tabs 09/21/24 oxycodone 5 mg tablet 5 mg PO Q8H PRN PRN Pain Score 4-10 3 days #9 tabs 09/21/24
--- NOTE | 2024-09-21 20:00 | POSTOPAN2_ITS ---
Anesthesia Postop Eval I Sum Postop Eval Completion status Anesthesia document: Postop Eval 1 completed: Yes Anesthesia Postop Eval I Summary Anesthesia Postop Eval I Summary: Anesthesia Postop Eval I: Assessment Summary Airway patent No 09/20/24 11:40 STONE [email or web address] [email or web address] Spontaneous unlabored No 09/20/24 11:40 STONE LATHE [email or web address] respirations Mental status Awake,Confused 09/20/24 11:40 STONE LATHE [email or web address] nausea No 09/20/24 11:40 STONE LATHE [email or web address].[email or web address] Vomiting No 09/20/24 11:40 STONE LATHE [email or web address] Anesthesia Postop Eval I: Fluid Summary Crystalloid volume administer 1,900 09/20/24 11:40 STONE LATHE [email or web address].[email or web address] (ml) Colloids volume administered ( ml) Blood Product volume administered (ml) Total IV fluid infused 1,900 09/20/24 11:40 STONE LATHE [email or web address].[email or web address] Anesthesia Postop Eval I: Summary Notes Anesthesia Complication No 09/20/24 11:40 STONE LATHE [email or web address] Anesthesia Complication Comment: Post-operative progress note Anesthesia: Postop Eval II Evaluation Mental status: Awake and Calm Pain Level: 1 nausea: No Vomiting: No Complications Anesthesia Complication: No
--- NOTE | 2024-09-21 20:00 | PCM.POSTANE2 ---
Anesthesia Postop Eval I Sum Postop Eval Completion status Anesthesia document: Postop Eval 1 completed: Yes Anesthesia Postop Eval I Summary Anesthesia Postop Eval I Summary: Anesthesia Postop Eval I: Assessment Summary Airway patent No 09/20/24 11:40 AIRCRAFT HYDRAULIC EQUIPMENT MECHANIC.[email or web address] Spontaneous unlabored No 09/20/24 11:40 AIRCRAFT HYDRAULIC EQUIPMENT MECHANIC.[email or web address] respirations Mental status Awake,Confused 09/20/24 11:40 AIRCRAFT HYDRAULIC EQUIPMENT MECHANIC.[email or web address] nausea No 09/20/24 11:40 AIRCRAFT HYDRAULIC EQUIPMENT MECHANIC.[email or web address] Vomiting No 09/20/24 11:40 AIRCRAFT HYDRAULIC EQUIPMENT MECHANIC.[email or web address] Anesthesia Postop Eval I: Fluid Summary Crystalloid volume administer 1,900 09/20/24 11:40 AIRCRAFT HYDRAULIC EQUIPMENT MECHANIC.[email or web address] (ml) Colloids volume administered ( ml) Blood Product volume administered (ml) Total IV fluid infused 1,900 09/20/24 11:40 AIRCRAFT HYDRAULIC EQUIPMENT MECHANIC.[email or web address] Anesthesia Postop Eval I: Summary Notes Anesthesia Complication No 09/20/24 11:40 AIRCRAFT HYDRAULIC EQUIPMENT MECHANIC.[email or web address] Anesthesia Complication Comment: Post-operative progress note Anesthesia: Postop Eval II Evaluation Mental status: Awake and Calm Pain Level: 1 nausea: No Vomiting: No Complications Anesthesia Complication: No
== END 2024-09-21 10:40 | disposition home or self-care (01) | DRG 39 ==
PROVIDERS: Admitting Provider Surgery Trauma Surgery; PCP Nurse Practitioner Family; Referring Provider Surgery Trauma Surgery; Visit Provider Surgery Trauma Surgery
PROC: 03CL0ZZ Extirpation of Matter from Left Internal Carotid Artery, Open Approach (ICD-10-PCS; CPT 35301; principal; 2024-09-20 07:10)
DX: I63.132 Cerebral infarction due to embolism of left carotid artery (principal); E11.9 Type 2 diabetes mellitus without complications; I48.0 Paroxysmal atrial fibrillation; Z79.4 Long term (current) use of insulin; Z79.01 Long term (current) use of anticoagulants; Z79.82 Long term (current) use of aspirin; Z79.84 Long term (current) use of oral hypoglycemic drugs; Z79.899 Other long term (current) drug therapy; Z87.891 Personal history of nicotine dependence; Z86.73 Personal history of transient ischemic attack (TIA), and cerebral infarction without residual deficits
CPT/HCPCS: 82962; 85025; 85347; 86850; 86900; 86901; 88304; 88311; 93005; 94668; 97802; 99252; A4648; A4216; G0463; J2405

== ENCOUNTER 2024-11-03 13:00 | Outpatient (RCR) | payer MEDICARE, SELFPAY ==
--- NOTE | 2024-10-04 08:03 | HP.OTEVAL_ITS ---
Patient's Visit Information Visit Information Visit Information: CHASITY MCKEON is a 78 year old M, referred to Occupational Therapy by Dr. Dennis Willis MD, with a diagnosis of occlusion and stenosis L carotid; cerebral infarct. Date of Evaluation: 10/04/24 Occupational Therapist: Marianna Condon Subjective Subjective: This 78 year old male arrives with dx of occlusion and stenosis of L carotid and cerebral infarction. Pt states stroke occurred approx 3-4 weeks ago with completion of surgery x2 weeks ago. Pt states Dr put him on a 15# lifting restriction for 3 weeks after surgery. Pt reports numbness of R hand. Pt is R hand dominant. reports he also feels unsteady. pt also reports decreased overall aerobic capacity. 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: R 60# L 65# Lateral Pinch: R 10# L 18# Tripod Pinch: R 10# L 15# Strength Comments: no lifting over 15-20# for approx [address] order Sensation Sensation Comments: R hand IF 3.22 thumb and D3-5 3.84 Nine Hole Peg Right: 41 sec Left: 29 sec Goals Goal:: pt will improve RUE strength of shoulder, bicep as well as tricep by 5# or more in order to maximize I in day to day tasks pt will improve R hand and pinch strength by 2# or more in order to maximize I in day to day tasks Goal:: Pt will improve R hand coordination evident by improved score on 9 hole peg assessment 35 sec or less for I in day to day tasks Goal:: pt will demonstrate improved [place] [employer] monofilament testing by discharge for increased I in day to day tasks Goal:: pt will improve sustained aerobic capacity with ability to tolerance 30+ minute session in order to maximize I in day to day tasks Goal:: pt will demo 100% accuracy in UB HEP provided by third session Rehabilitation General Assessment: This 78 year old male arrives with dx of occlusion and stenosis of L carotid as well as cerebral infarct presenting with decreased strength, sensation and coordination of RUE. Pt also reports overall decreased aerobic capacity for completion of tasks. Pt would benefit from OT services 1x a week for 4-6 weeks in order to improve above impairments for return to I in day to day functional tasks. Rehabilitation Potential: Good Anticipated Interventions Anticipated Interventions: A/AAROM/PROM, Strengthening, Joint Protection/Energy Conservation, Fine Motor Coord/Caden, Neuro Reeducation, Sensory Stimulation, Education re Diagnosis and Home Program Visit Plan Frequency: 1x/Week Duration: 4-6 Weeks General Plan: strengthening fine motor coordination Pt is on 15# lifting restriction for another week TEXT: Thank you for the opportunity to evaluate your patient. For Medicare and Medicare HMO plans, please review the plan of care and approve it. It will need to be FAXED BACK to us at [phone] for Medicare purposes. Please let me know if there are questions or concerns regarding this plan of care. Physician Signature: Date:
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
--- NOTE | 2025-02-07 14:51 | HP.OT.NRP ---
Patient Information Patient Information: CHASITY MCKEON was seen in my office for initial evaluation on 10/04/24. The following Plan of Care was established for this patient: POC Established Initial Frequency: 1x/Week Initial Duration: 4-6 Weeks Plan: aerobic capacity training R UE coordination UB strength sensory training Anticipated Interventions Anticipated Interventions: A/AAROM/PROM, Strengthening, Joint Protection/Energy Conservation, Fine Motor Coord/Caden, Neuro Reeducation, Sensory Stimulation, Education re Diagnosis and Home Program Last Seen Last Seen: This patient was last seen in our office 11/03/24. Pertinent comments regarding their Occupational therapy will appear below: This 79 year old male seen by OT with dx of occlusion and stenosis L carotid and cerebral infarct. Pt seen for eval and three additional visits. Pt working toward progressing FMC as well as strength. discharge pt from OT caseload due to lapse in time of services. At this point I will be discontinuing this patient from occupational therapy. I would be happy to see this patient again in the future if found appropriate by the physician. Thank you! Marianna Condon
== END 2024-11-03 19:00 | disposition home or self-care (01) ==
LOC: OT 13:00
PROVIDERS: PCP Nurse Practitioner Family; Referring Provider Internal Medicine; Visit Provider Internal Medicine
DX: I65.22 Occlusion and stenosis of left carotid artery (principal); Z86.73 Personal history of transient ischemic attack (TIA), and cerebral infarction without residual deficits; R53.1 Weakness
CPT/HCPCS: 97110; 97161; 97166; 97530

== ENCOUNTER → 2025-01-03 | Outpatient (CLI) | payer MEDICARE, SELFPAY ==
[2025-01-03 15:04] LABS: Hematocrit 40.4 % (40-54); Hemoglobin 13.6 g/dL (13.0-16.5); Immature Granulocytes Count 0.090 X10^3/uL (0.0-0.0); Mean Corp Hgb Conc 33.7 g/dL (32-36); Mean Corpuscular Volume 89.2 fL (80-94); Mean Platelet Vol. 9.5 fl (6.2-12.0); NRBC Flagged by Analyzer 0 % (0-5); Platelet Count 234 K/mm3 (150-450); RBC Distribution Width CV 13.3 % (11.6-14.6); RBC Distribution Width SD 43.5 fl (35.1-43.9); Red Blood Count 4.53 M/mm3 (4.6-6.2); White Blood Count 9.1 K/mm3 (4.4-11.0)
[2025-01-03 15:26] LABS: AST(SGOT) 30 U/L (<=37); Alanine Aminotransfer ALT/SGPT 29 U/L (<=46); Albumin, Serum 4.3 g/dL (3.4-4.8); Alkaline Phosphatase 66 U/L (40-129); Anion Gap 12 (5-15); BUN 20 mg/dL (4-19); BUN/Creat Ratio 24.2 RATIO (10-20); Calcium,Total 10.0 mg/dL (7.6-11.0); Carbon Dioxide 26.6 mmol/L (21.0-32.0); Chloride 101 mmol/L (98-108); Globulin 3.2 g/dL (2.2-4.2); Glucose 109 mg/dL (70-99); Potassium 4.1 mmol/L (3.3-5.1)
== END | disposition home or self-care (01) ==
LOC: MTLAB 13:31
PROVIDERS: PCP Nurse Practitioner Family; Referring Provider Internal Medicine; Visit Provider Internal Medicine
DX: E11.42 Type 2 diabetes mellitus with diabetic polyneuropathy (principal)
CPT/HCPCS: 36415; 80053; 85025